=== PATIENT | male | born 1960 | race Caucasian/White ===

== ENCOUNTER 2017-07-17 01:22 | Inpatient (IN) | payer BC ==
[~2017-07-17] VITALS: Ht 175.3 cm; Wt 93.5 kg
[2017-07-17] VITALS (21 sets, daily range): BP systolic 104–147; BP diastolic 60–103; PULSE 45–71; TEMP 36.6–36.9; O2SAT 92–97; Ht 175.3 cm; Wt 93.5 kg
[2017-07-17] MEDS ORDERED: NITROGLYCERIN 0.4 MG SL PER TAB CHARGE SL STA (01:42)
[2017-07-17] MEDS ORDERED: ASPIRIN 81 MG CHEW PO STA (01:42)
[2017-07-17 02:06] LABS: BASO % 0.5 %; BASO ABS # 0.05 K/uL (0-0.2); COMPLETE YES; EOS % 4.2 %; HEMATOCRIT 46.2 % (42-52); IG% 0.4 %; LYMPH % 29.7 %; LYMPH ABS # 3.05 K/uL (1.2-3.4); MEAN CELL VOLUME 84.9 fL (80-100); MEAN CORPUSCULAR HGB CONC 34.2 g/dl (32-36); MEAN PLATELET VOLUME 9.3 fL (7.4-10.4); MONO % 9.8 %; NEUT % 55.4 %; PLATELET COUNT 301 K/uL (130-400); RED BLOOD COUNT 5.44 M/uL (4.7-6.1); WHITE BLOOD COUNT 10.27 K/uL (4.8-10.8)
[2017-07-17 02:26] LABS: ALT/SGPT 90 U/L (12-78); AST/SGOT 36 U/L (15-37); BLOOD UREA NITROGEN 25 mg/dl (7-18); BUN/CREATININE RATIO 22.7 (10-20); CALCIUM 9.6 mg/dl (8.5-10.1); CARBON DIOXIDE 30 mmol/L (21-32); CHLORIDE 104 mmol/L (98-107); GLUCOSE 149 mg/dl (70-99); POTASSIUM 3.5 mmol/L (3.5-5.1); SODIUM 139 mmol/L (136-145)
[2017-07-17 02:27] LABS: ALKALINE PHOSPHATASE 87 U/L (45-117)
[2017-07-17] MEDS ORDERED: ATROPINE SULFATE 0.1 MG/ML 5ML SYR IV STA (02:30)
[2017-07-17] MEDS ORDERED: SODIUM CHLORIDE 0.9% 1000ML 2,000 ML IV STA (02:30)
[2017-07-17 02:48] LABS: PROTHROMBIN TIME (PATIENT) 10.5 SECONDS (9.0-12.0)
[2017-07-17] MEDS ORDERED: HEPARIN SOD (PORCINE) 1000 UNIT/ML 10 ML VIAL ONE ×2 (02:57→04:01)
[2017-07-17] MEDS ORDERED: NiCARDipine HCL INJ 2.5 MG/ML 10 ML AMP ONE (02:57)
[2017-07-17] MEDS ORDERED: MIDAZOLAM HCL 1 MG/ML 2ML VIAL ONE ×2 (02:57→03:40)
[2017-07-17] MEDS ORDERED: FENTANYL CITRATE INJ 50 MCG/1 ML 2 ML VIAL ONE ×2 (02:57→03:38)
[2017-07-17] MEDS ORDERED: NITROGLYCERIN/D5W 100MCG/ML 20ML SYR ONE (03:00)
[2017-07-17 03:11] LABS: LYME DISEASE AB IGG NEG (NEG); LYME DISEASE AB IGM NEG (NEG)
--- NOTE | 2017-07-17 03:19 | History and Physical ---
History & Physical Date & Time of Service: Jul 17, 2017 at 03:18 Chief Complaint: Chest Pain Primary Care Physician: Jalen Peters M.D. History of Present Illness Source: patient The patient is a 56-year-old male who presents to the emergency department overnight with chest pain. The patient states that has occurred multiple times in the past 3 days. He notes a couple nights ago he is walking with his and noticed a low-grade chest pressure that did not radiate to the back jaw or arms. It really after he finishes walk the pain went away. He is generally active gentleman and works out at the gym 6 times a week. However the last couple days he has been having a low-grade chest pressure during exertion which is relieved when he stops exerting himself. Diagnoses sitting watching TV and the pain came on at rest and states that at that time the pain was the most severe is been. Again he states there was 8 out of 10 chest pressure without any radiating symptoms. As his symptoms did not resolve the patient came to the emergency department for further evaluation. He denies shortness of breath, palpitations, lightheadedness/dizziness, orthopnea or lower extremity edema He denies a previous history of hypertension, diabetes, hypercholesterolemia. He is a nonsmoker. States his father had an MN with CABG at the age of 55. In the ER and EKG was done which did not show any acute EKG changes. However troponin was elevated at 0.220. While in the ED the patient had a bradycardic event, where he was apparently asystolic for a very brief moment, after which she recovered to normal rate. He was started for sure. On dopamine via peripheral IV but this was discontinued as result heart heart alert was called the patient was take to the research lab assistant where he had a complete occlusion of the LAD with stenting Patient was transferred to the intensive care unit on Integrilin infusion. At this time the patient denies any symptoms of chest pain. Family History Noncontributory Social History Smoking Status: Never Smoker Smokeless Tobacco Use: No Alcohol Use: none Drug Use: none Marital Status: Housing status: lives with family Occupational Status: employed Immunizations History of Influenza Vaccine: Unknown History of Tetanus Vaccine?: Unknown History of Pneumococcal: Unknown History of Hepatitis B Vaccine: Unknown Multi-Drug Resistant Organisms History of MDRO: No Allergies Coded Allergies: No Known Allergies (Verified , 07/17/17) Home Medications No Active Prescriptions or Reported Meds Review of Systems A 10 point review of systems was negative unless stated above. Physical Exam Vital Signs Date Time Temp Pulse Resp B/P (MAP) Pulse Ox O2 Delivery O2 Flow Rate FiO2 07/17/17 03:00 66 15 125/86 98 Room Air 07/17/17 02:57 67 07/17/17 02:55 65 16 118/73 97 07/17/17 02:50 56 14 138/82 95 07/17/17 02:45 60 19 128/75 94 07/17/17 02:40 62 15 116/71 94 07/17/17 02:39 60 20 96 07/17/17 02:38 63 18 92 07/17/17 02:37 61 18 92 07/17/17 02:36 65 20 94 07/17/17 02:35 60 13 101/73 07/17/17 02:34 59 18 100/69 07/17/17 02:33 58 24 07/17/17 02:32 45 19 96 07/17/17 02:31 49 20 96 07/17/17 02:30 47 07/17/17 02:30 42 14 87/57 96 07/17/17 02:29 42 19 95 07/17/17 02:28 38 17 66/40 96 07/17/17 02:27 37 17 98 07/17/17 02:27 37 07/17/17 02:26 32 07/17/17 02:26 39 29 71/40 96 07/17/17 02:25 36 07/17/17 02:25 42 12 89 07/17/17 02:24 61 16 93 07/17/17 02:23 63 21 93 07/17/17 02:22 62 19 94 07/17/17 02:21 62 17 93 07/17/17 02:20 54 15 114/86 94 07/17/17 02:20 65 18 114/86 93 Room Air 07/17/17 02:01 97 Room Air 07/17/17 01:58 Room Air 07/17/17 01:43 69 07/17/17 01:35 37.1 64 18 174/113 97 Room Air 07/17/17 01:32 97 Room Air General Appearance: WD/WN, no apparent distress Head: normocephalic, atraumatic Eyes: normal inspection, EOMI ENT: hearing grossly normal, pharynx normal Neck: supple, no adenopathy, no JVD Respiratory/Chest: lungs clear, no respiratory distress Cardiovascular: regular rate, rhythm, no gallop, no murmur Abdomen/GI: normal bowel sounds, non tender, soft Back: no CVA tenderness, no muscle spasm Extremities/Musculoskelatal: no calf tenderness, no pedal edema, + pertinent finding (other access site in right wrist) Neurologic/Psych: alert, normal mood/affect, oriented x 3 Skin: normal color, warm/dry, no rash Lymphatic: no adenopathy Diagnostics Laboratory Results Results Past 24 Hours Test 07/17/17 01:35 07/17/17 01:59 Range/Units White Blood Count 10.27 4.8-10.8 K/uL Red Blood Count 5.44 4.7-6.1 M/uL Hemoglobin 15.8 14.0-18.0 g/dL Hematocrit 46.2 42-52 % Mean Corpuscular Volume 84.9 80-100 fL Mean Corpuscular Hemoglobin 29.0 25-34 pg Mean Corpuscular Hemoglobin Concent 34.2 32-36 g/dl Platelet Count 301 130-400 K/uL Mean Platelet Volume 9.3 7.4-10.4 fL Neutrophils (%) (Auto) 55.4 % Lymphocytes (%) (Auto) 29.7 % Monocytes (%) (Auto) 9.8 % Eosinophils (%) (Auto) 4.2 % Basophils (%) (Auto) 0.5 % Neutrophils # (Auto) 5.69 1.4-6.5 K/uL Lymphocytes # (Auto) 3.05 1.2-3.4 K/uL Monocytes # (Auto) 1.01 0.11-0.59 K/uL Eosinophils # (Auto) 0.43 0-0.5 K/uL Basophils # (Auto) 0.05 0-0.2 K/uL RDW Standard Deviation 40.2 36.4-46.3 fL RDW Coefficient of Variation 13.1 11.5-14.5 % Immature Granulocyte % (Auto) 0.4 % Immature Granulocyte # (Auto) 0.04 0.00-0.02 K/uL Prothrombin Time 10.5 9.0-12.0 SECONDS Prothromb Time International Ratio 1.0 0.9-1.1 Activated Partial Thromboplast Time 27.2 21.0-31.0 SECONDS Partial Thromboplastin Ratio 1.0 Sodium Level 139 136-145 mmol/L Potassium Level 3.5 3.5-5.1 mmol/L Chloride Level 104 98-107 mmol/L Carbon Dioxide Level 30 21-32 mmol/L Anion Gap 5.0 3-11 mmol/L Blood Urea Nitrogen 25 7-18 mg/dl Creatinine 1.10 0.60-1.40 mg/dl Est Creatinine Clear Calc Drug Dose 86.5 ml/min Estimated GFR () 87.7 Estimated GFR (Non- 75.7 BUN/Creatinine Ratio 22.7 10-20 Random Glucose 149 70-99 mg/dl Calcium Level 9.6 8.5-10.1 mg/dl Total Bilirubin 0.4 0.2-1 mg/dl Direct Bilirubin < 0.1 0-0.2 mg/dl Aspartate Amino Transf (AST/SGOT) 36 15-37 U/L Alanine Aminotransferase (ALT/SGPT) 90 12-78 U/L Alkaline Phosphatase 87 45-117 U/L Total Protein 7.8 6.4-8.2 gm/dl Albumin 4.0 3.4-5.0 gm/dl Lipase 137 73-393 U/L Lyme Disease IgG Antibody NEG NEG Lyme Disease IgM Antibody NEG NEG Bedside Troponin I 0.220 0-0.045 ng/ml EKG CHEST ONE VIEW PORTABLE CLINICAL HISTORY: 56 years-old Male presenting with CHEST PAIN. TECHNIQUE: Portable upright AP view of the chest was obtained. COMPARISON: None. FINDINGS: Cardiomediastinal silhouette normal. Mildly low lung volumes with hypoventilatory changes. Lungs and pleural spaces clear. Degenerative changes of the spine. Upper abdomen normal. IMPRESSION: 1. Mildly low lung volumes with hypoventilatory changes. No focal infiltrate. Impression Assessment and Plan 56-year-old gentleman, admitted for chest pain found to be an STEMI with complete LAD occlusion. He is status post stenting. He was transferred directly from the cardiac catheterization lab to the intensive care unit for further management. He is doing well at this time. Our plan for him is as follows NSTEMI - Elevated troponin on admission of 0.22 - Status post LAD stenting - Patient is currently on Integrilin infusion - Secondary: ASA 81 daily Ticagrelor 90BID Lisinopril Metoprolol Recommend patient cannot intensity statin - Check fasting cholesterol HbA1c with morning labs - EKG with chest pain DVT prophylaxis - Patient is currently on an Integrilin drip - He can be changed over to either heparin or low molecular weight heparin once Integrilin was discontinued - SCD - Santy Code Status - Level I Disposition - ICU - Patient would benefit from cardiac rehabilitation Attending Addendum: I have physically seen and examined this patient, have supervised the medical residents activities, and agree with the H&P as noted above with the following exceptions as noted. The patient initially presented to the emergency department with chest pain. Seen post cardiac catheterization with LAD stenting, the patient reports no further chest pain. The patient denies chest pain, palpitations, shortness of breath, cough, lower extremity swelling, sore throat, fevers, chills, sweats, fatigue, nausea, vomiting, diarrhea or constipation, abdominal pain, pelvic pain, blood in urine or stool, dysuria, urinary frequency or urgency, lightheadedness, dizziness, headache, memory loss, rash, imbalance, focal or generalized weakness, numbness or tingling in arms or legs, generalized arthralgias or myalgias, back or neck pain, night sweats. The review of systems is otherwise negative other than for that already noted above, and at least 10 systems have been reviewed. The patient is awake, well-developed and adequately nourished, alert and oriented 3, normocephalic and atraumatic, lying in bed and in no acute distress. HEENT--PERRL, EOMI, mucous membranes and oropharynx dry. Neck--supple, no JVD or bruits, thyroid normal, trachea midline, no adenopathy. Heart--normal S1 and S2, no extra beats, no murmurs, rubs or gallops. Lungs--clear bilaterally with good air movement, no respiratory distress, no accessory muscle use. Abdomen--normal bowel sounds and soft, nontender and nondistended, no hernias or masses, no organomegaly. Extremities--no cyanosis, clubbing or edema. There are good distal pulses b/l. Dermatologic--normal skin turgor, normal color, warm and dry, no abnormal lymph nodes, no rash. Neurologic--cranial nerves II through XII grossly intact, motor and sensory examination normal. Rheumatologic--normal range of motion, nontender, muscles and joints. Psychiatric--normal affect. Assessment and Plan: 1.NSTEMI/status post cardiac catheterization with complete LAD occlusion corrected by stent placement, and 80% RCA occlusion to be addressed the following day. The patient is admitted to the ICU on Integrilin infusion, aspirin 81 mg daily , Ticagrelor 90 mg by mouth twice a day, lisinopril 2.5 mg by mouth daily, metoprolol tartrate 12.5 mg by mouth twice a day, and Lipitor 80 mg by mouth daily. Interventional cardiology Dr. Fairbanks is consulted. Paper Sales Representative Dr. Babin is consulted. Level of Care Critical Care Advanced Directives Existing Advance Directive: No Existing Living Will: No Existing Power of Nurse Plastics: No Resuscitation Status FULL RESUSCITATION VTE Prophylaxis VTE Risk Assessment Done? Y/N: Yes Risk Level: Moderate Given or contraindicated: Other Anticoagulation (antiplatelet, Integrilin infusion) Social Service Consult None Apply
--- NOTE | 2017-07-17 03:40 | EMERGENCY ROOM VISIT NOTE ---
History First contact with patient: 01:25 Chief Complaint: CHEST PAIN Stated Complaint: CHEST PAIN Nursing Triage Summary: Pt getting over cold/chest cold. Has had on/off chest pain past couple days. Pt was unable to exercise yesterday. Pt had gone to sleep and woke up around midnight with severe chest pains. History of Present Illness The patient is a 56 year old male who presents to the Emergency Room with complaints of exertional chest pain for the past 3 days. Patient states when he was walking he develop chest pain on Saturday night that resolved when he rested. Patient states yesterday he was trying to the elliptical cut chest pain and was unable to continue. Patient states tonight when he is walking the chest pain returned. It has not gone away. Pain is currently 8 out of 10. He complains of diaphoresis and nausea with the pain. Activity makes it worse and nothing makes it better. Patient denies dyspnea, recent travel, leg pain or swelling, abdominal pain, back pain, radiating pain. He had an echo 2001 which showed some type of infection per patient but is unsure exactly what. He does not really follow with the family care doctor. No recent stress test or echocardiogram. His father had heart disease in his 50s. Patient denies tobacco use, diabetes, blood pressure cholesterol. Once again patient has not seen a doctor in over 10 years. Review of Systems See HPI for pertinent positives & negatives. A total of 10 systems reviewed and were otherwise negative. Past Medical/Surgical History Orthopedic surgeries, hernia surgery Social History Smoking Status: Never Smoker Drug Use: none Marital Status: Housing Status: lives with family Occupation Status: employed Current/Historical Medications No Active Prescriptions or Reported Meds Physical Exam Vital Signs Date Time Temp Pulse Resp B/P (MAP) Pulse Ox O2 Delivery O2 Flow Rate FiO2 07/17/17 03:23 37.1 66 15 125/86 98 07/17/17 03:00 66 15 125/86 98 Room Air 07/17/17 02:57 67 07/17/17 02:55 65 16 118/73 97 07/17/17 02:50 56 14 138/82 95 07/17/17 02:45 60 19 128/75 94 07/17/17 02:40 62 15 116/71 94 07/17/17 02:39 60 20 96 07/17/17 02:38 63 18 92 07/17/17 02:37 61 18 92 07/17/17 02:36 65 20 94 07/17/17 02:35 60 13 101/73 07/17/17 02:34 59 18 100/69 07/17/17 02:33 58 24 07/17/17 02:32 45 19 96 07/17/17 02:31 49 20 96 07/17/17 02:30 47 07/17/17 02:30 42 14 87/57 96 07/17/17 02:29 42 19 95 07/17/17 02:28 38 17 66/40 96 07/17/17 02:27 37 17 98 07/17/17 02:27 37 07/17/17 02:26 32 07/17/17 02:26 39 29 71/40 96 07/17/17 02:25 36 07/17/17 02:25 42 12 89 07/17/17 02:24 61 16 93 07/17/17 02:23 63 21 93 07/17/17 02:22 62 19 94 07/17/17 02:21 62 17 93 07/17/17 02:20 54 15 114/86 94 07/17/17 02:20 65 18 114/86 93 Room Air 07/17/17 02:01 97 Room Air 07/17/17 01:58 Room Air 07/17/17 01:43 69 07/17/17 01:35 37.1 64 18 174/113 97 Room Air 07/17/17 01:32 97 Room Air Pain Rating (0-10): 7.0 Physical Exam VITALS: Vitals are noted on the nurse's note and reviewed by myself. Vital signs hypertensive GENERAL: White male, in no acute distress, nondiaphoretic, well-developed well- nourished. SKIN: The skin was without rashes, erythema, edema, or bruising. There is no tenting of the skin. Capillary reflex less than 2 seconds. HEAD: Normocephalic atraumatic. EARS: External auditory canals clear, tympanic membranes pearly bernabe without erythema or effusion bilaterally. EYES: Pupils equal round and reactive to light and accommodation. Conjunctivae without injection, sclerae without icterus. Extraocular movements intact. NOSE: Patent, turbinates without inflammation or discharge. MOUTH: Mucous membranes moist. Pharynx without erythema or exudate. Uvula midline. Airway patent. Tongue does not deviate. NECK: Supple without nuchal rigidity. No lymphadenopathy. No thyromegaly. Cervical spine is nontender. No JVD. HEART: Regular rate and rhythm without murmurs gallops or rubs. Chest nontender to palpation LUNGS: Clear to auscultation bilaterally without wheezes, rales or rhonchi. No dullness to percussion. No retractions or accessory muscle use. ABDOMEN: Positive bowel sounds x 4. Normal tympanic percussion. Soft, nontender, without masses or organomegaly. Ledesma sign negative. No guarding or rebound tenderness. MUSCULOSKELETAL: No muscle atrophy, erythema, or edema noted. NEURO: Patient was alert and oriented to person place and time. Normal sensation to light and sharp touch. No focal neurological deficits. Medical Decision & Procedures Laboratory Results 07/17/17 01:35 Red Blood Count 5.44, Mean Corpuscular Volume 84.9, Mean Corpuscular Hemoglobin 29.0, Mean Corpuscular Hemoglobin Concent 34.2, Mean Platelet Volume 9.3, Neutrophils (%) (Auto) 55.4, Lymphocytes (%) (Auto) 29.7, Monocytes (%) (Auto) 9.8, Eosinophils (%) (Auto) 4.2, Basophils (%) (Auto) 0.5, Neutrophils # (Auto) 5.69, Lymphocytes # (Auto) 3.05, Monocytes # (Auto) 1.01, Eosinophils # (Auto) 0.43, Basophils # (Auto) 0.05 07/17/17 01:35 Test 07/17/17 01:35 07/17/17 01:59 White Blood Count 10.27 K/uL (4.8-10.8) Red Blood Count 5.44 M/uL (4.7-6.1) Hemoglobin 15.8 g/dL (14.0-18.0) Hematocrit 46.2 % (42-52) Mean Corpuscular Volume 84.9 fL (80-100) Mean Corpuscular Hemoglobin 29.0 pg (25-34) Mean Corpuscular Hemoglobin Concent 34.2 g/dl (32-36) Platelet Count 301 K/uL (130-400) Mean Platelet Volume 9.3 fL (7.4-10.4) Neutrophils (%) (Auto) 55.4 % Lymphocytes (%) (Auto) 29.7 % Monocytes (%) (Auto) 9.8 % Eosinophils (%) (Auto) 4.2 % Basophils (%) (Auto) 0.5 % Neutrophils # (Auto) 5.69 K/uL (1.4-6.5) Lymphocytes # (Auto) 3.05 K/uL (1.2-3.4) Monocytes # (Auto) 1.01 K/uL (0.11-0.59) Eosinophils # (Auto) 0.43 K/uL (0-0.5) Basophils # (Auto) 0.05 K/uL (0-0.2) RDW Standard Deviation 40.2 fL (36.4-46.3) RDW Coefficient of Variation 13.1 % (11.5-14.5) Immature Granulocyte % (Auto) 0.4 % Immature Granulocyte # (Auto) 0.04 K/uL (0.00-0.02) Prothrombin Time 10.5 SECONDS (9.0-12.0) Prothromb Time International Ratio 1.0 (0.9-1.1) Activated Partial Thromboplast Time 27.2 SECONDS (21.0-31.0) Partial Thromboplastin Ratio 1.0 Anion Gap 5.0 mmol/L (3-11) Est Creatinine Clear Calc Drug Dose 86.5 ml/min Estimated GFR () 87.7 Estimated GFR (Non- 75.7 BUN/Creatinine Ratio 22.7 (10-20) Calcium Level 9.6 mg/dl (8.5-10.1) Total Bilirubin 0.4 mg/dl (0.2-1) Direct Bilirubin < 0.1 mg/dl (0-0.2) Aspartate Amino Transf (AST/SGOT) 36 U/L (15-37) Alanine Aminotransferase (ALT/SGPT) 90 U/L (12-78) Alkaline Phosphatase 87 U/L (45-117) Total Protein 7.8 gm/dl (6.4-8.2) Albumin 4.0 gm/dl (3.4-5.0) Lipase 137 U/L (73-393) Lyme Disease IgG Antibody NEG (NEG) Lyme Disease IgM Antibody NEG (NEG) Bedside Troponin I 0.220 ng/ml (0-0.045) Medications Administered Medications (Trade) Dose Ordered Sig/Florin Route Start Time Stop Time Status Last Admin Dose Admin Aspirin (Aspirin Chew) 324 mg NOW STAT PO 07/17/17 01:42 07/17/17 01:43 DC 07/17/17 01:51 324 MG Nitroglycerin (Nitrostat Tab) 0.4 mg NOW STAT SL 07/17/17 01:42 07/17/17 01:43 DC 07/17/17 01:51 0.4 MG Atropine Sulfate (Atropine Sulfate 0.1MG/Ml Inj) 0.5 mg NOW STAT IV 07/17/17 02:30 07/17/17 02:32 DC 07/17/17 02:30 0.5 MG Sodium Chloride 2,000 ml @ 999 mls/hr Q2H1M STAT IV 07/17/17 02:30 07/17/17 04:30 07/17/17 02:30 999 MLS/HR ED Course Prior records/ancillary studies reviewed. Triage Nursing notes reviewed. Additional history obtained from family The patient's history was concerning for chest pain. Differential diagnosis: Etiologies such as cardiac ischemia, aortic dissection, pulmonary embolism, pneumonia, pneumothorax, musculoskeletal, infections, pericarditis, myocarditis , esophageal rupture, gastrointestinal, as well as others were entertained. Physical examination: As above. ER treatment provided: Aspirin, nitroglycerin, IV fluids, dopamine, atropine On reassessment the patient felt better. Diagnostic interpretation by me: The electrocardiogram was negative for pathologic change. Normal sinus, normal intervals, no acute ST-T wave changes. Impression normal sinus rhythm interpreted by myself Repeat EKG shows junctional rhythm at [address]-T wave changes, and # 3 EKG is normal sinus with no acute ST-T wave changes with occasional PAC interpreted by myself with rate 69 The labs revealed elevated troponin. Stable H&H Imaging studies: Chest x-ray no acute pneumothorax, free air or consolidation per my interpretation Consultation: A consultation was placed with Dr. Fairbanks and will come in and evaluate the patient. The case was discussed and diagnostics were reviewed. The patient was evaluated in the ER for further treatment. Medicine was consulted and Dr. Rooney will evaluate the patient for admission Exam and history seem consistent with acute coronary syndrome. I was explaining to the patient that he had an elevated troponin and his symptoms were concerning for acute coronary syndrome but he then bradied down to less than 10 and his blood pressure plummeted to 60/30. Pacer pads are placed. He was given 2 L of fluids wide open and cardiology was consulted and Dr. Magdi hawthorne come in for possible cath. My attending was made aware. Patient was then started on dopamine and atropine. Within a few minutes patient felt much better and was no longer diaphoretic and pale. Patient was reassessed multiple times. He is agreeable treatment plan of admission. Cardiology will take him to the Clinical Instructor. By the evaluation outlined above emergent etiologies such as aortic dissection, pulmonary embolism, pneumonia, pneumothorax, gastrointestinal, as well as others were deemed relatively unlikely. The pt informed about the findings as listed above. All questions were answered and pleased with the treatment. Case reviewed by attending Medical Decision As above Medication Reconcilliation Current Medication List: was personally reviewed by me Blood Pressure Screening Patient's blood pressure: Elevated blood pressure Blood pressure disposition: Referred to PCP Impression Primary Impression: Acute coronary syndrome Critical Care I have personally spent greater than 30 minutes of critical care time in the direct management of this patient. This includes bedside care, interpretation of diagnostic studies, and testing, discussion with consultants, patient, and family members, and other required patient management activities. This 30 minutes is in excess of all separately billable procedures. Departure Information Dispostion Being Evaluated By Hospitalist Condition FAIR Prescriptions No Active Prescriptions or Reported Meds Referrals Jalen Peters M.D. (PCP) Forms Call Back Authorization, HOME CARE DOCUMENTATION FORM, IMPORTANT VISIT INFORMATION Patient Instructions My [facility]
[2017-07-17] MEDS ORDERED: EPTIFIBATIDE 0.75 MG/ML 75MG VIAL IV ONE (03:56)
[2017-07-17] MEDS ORDERED: TICAGRELOR 90 MG TAB PO ONE (04:32)
[2017-07-17] MEDS ORDERED: EPTIFIBATIDE 2 MG/ML 10 ML VIAL IV ONE (04:45)
[2017-07-17] MEDS ORDERED: MoRPHine SULFATE 2 MG/ML CARP IV PRN (05:15)
[2017-07-17] MEDS ORDERED: NITROGLYCERIN 0.4 MG SL PER TAB CHARGE SL PRN ×2 (05:15)
[2017-07-17] MEDS ORDERED: ACETAMINOPHEN 325 MG TAB PO PRN (05:15)
[2017-07-17] MEDS ORDERED: ALUMINUM/MAGNESIUM/SIMETH (MAALOX MAX) 30 ML UDC PO PRN (05:15)
[2017-07-17] MEDS ORDERED: LORAZEPAM INJ 0.5 MG in SYRINGE 0.75 ML IV PRN (05:15)
[2017-07-17] MEDS ORDERED: ATROPINE SULFATE 0.1 MG/ML 5ML SYR IV PRN (05:15)
[2017-07-17] MEDS ORDERED: LORAZEPAM 1 MG TAB PO PRN (05:15)
[2017-07-17] MEDS ORDERED: ONDANSETRON INJ 2 MG/ML 2 ML VIAL IV PRN (05:15)
[2017-07-17] MEDS ORDERED: LORAZEPAM 2 MG/ML 1 ML VIAL IV PRN ×3 (05:15→06:15)
[2017-07-17] MEDS ORDERED: EPTIFIBATIDE BOLUS / DRIP IV ONE (05:15)
[2017-07-17] MEDS ORDERED: ZOLPIDEM TARTRATE 5 MG TAB PO PRN (05:15)
[2017-07-17] MEDS ORDERED: MAGNESIUM HYDROXIDE SUSP 30 ML UDC PO PRN (05:15)
--- NOTE | 2017-07-17 05:31 | Procedure Note ---
Pre-Mod Sedation Assessment General Date of Moderate Sedation: Jul 17, 2017. Vital Signs: Vital Signs Past 12 Hours Date Time Temp Pulse Resp B/P (MAP) Pulse Ox O2 Delivery O2 Flow Rate FiO2 07/17/17 05:02 62 16 129/80 (96) 95 Room Air 07/17/17 04:54 63 16 132/83 (99) 96 Room Air 07/17/17 04:39 60 16 123/79 (94) 95 Mask 6 07/17/17 03:23 37.1 66 15 125/86 98 07/17/17 03:00 66 15 125/86 98 Room Air 07/17/17 02:57 67 07/17/17 02:55 65 16 118/73 97 07/17/17 02:50 56 14 138/82 95 07/17/17 02:45 60 19 128/75 94 07/17/17 02:40 62 15 116/71 94 07/17/17 02:39 60 20 96 07/17/17 02:38 63 18 92 07/17/17 02:37 61 18 92 07/17/17 02:36 65 20 94 07/17/17 02:35 60 13 101/73 07/17/17 02:34 59 18 100/69 07/17/17 02:33 58 24 07/17/17 02:32 45 19 96 07/17/17 02:31 49 20 96 07/17/17 02:30 47 07/17/17 02:30 42 14 87/57 96 07/17/17 02:29 42 19 95 07/17/17 02:28 38 17 66/40 96 07/17/17 02:27 37 17 98 07/17/17 02:27 37 07/17/17 02:26 32 07/17/17 02:26 39 29 71/40 96 07/17/17 02:25 36 07/17/17 02:25 42 12 89 07/17/17 02:24 61 16 93 07/17/17 02:23 63 21 93 07/17/17 02:22 62 19 94 07/17/17 02:21 62 17 93 07/17/17 02:20 54 15 114/86 94 07/17/17 02:20 65 18 114/86 93 Room Air 07/17/17 02:01 97 Room Air 07/17/17 01:58 Room Air 07/17/17 01:43 69 07/17/17 01:35 37.1 64 18 174/113 97 Room Air 07/17/17 01:32 97 Room Air Review Cardiovascular: regular rate, rhythm, no edema, no JVD, no murmur, normal peripheral pulses Abdomen: non tender, soft, no organomegaly Lungs: lungs clear Pre-Sedation Airway Assessment Oral Cavity: WNL Able to Visualize Vocal Cords: No Short Thick Neck: No Hx of Sleep Apnea: No Smoking Status: Never Smoker Mallampati Classification: Class III Procedure Planning Contraindications-for Mod Sed: None Yes Notes The planned sedation has been discussed with the patient and consent obtained. I have identified the patient, determined the appropriateness of sedation and have assessed the patient immediately prior to the procedure. All medicine(s) and interventions are by my order.
--- NOTE | 2017-07-17 05:31 | Procedure Note ---
Post-Mod Sedation Assessment General Date of Moderate Sedation Jul 17, 2017. Vital Signs: Vital Signs Past 12 Hours Date Time Temp Pulse Resp B/P (MAP) Pulse Ox O2 Delivery O2 Flow Rate FiO2 07/17/17 05:02 62 16 129/80 (96) 95 Room Air 07/17/17 04:54 63 16 132/83 (99) 96 Room Air 07/17/17 04:39 60 16 123/79 (94) 95 Mask 6 07/17/17 03:23 37.1 66 15 125/86 98 07/17/17 03:00 66 15 125/86 98 Room Air 07/17/17 02:57 67 07/17/17 02:55 65 16 118/73 97 07/17/17 02:50 56 14 138/82 95 07/17/17 02:45 60 19 128/75 94 07/17/17 02:40 62 15 116/71 94 07/17/17 02:39 60 20 96 07/17/17 02:38 63 18 92 07/17/17 02:37 61 18 92 07/17/17 02:36 65 20 94 07/17/17 02:35 60 13 101/73 07/17/17 02:34 59 18 100/69 07/17/17 02:33 58 24 07/17/17 02:32 45 19 96 07/17/17 02:31 49 20 96 07/17/17 02:30 47 07/17/17 02:30 42 14 87/57 96 07/17/17 02:29 42 19 95 07/17/17 02:28 38 17 66/40 96 07/17/17 02:27 37 17 98 07/17/17 02:27 37 07/17/17 02:26 32 07/17/17 02:26 39 29 71/40 96 07/17/17 02:25 36 07/17/17 02:25 42 12 89 07/17/17 02:24 61 16 93 07/17/17 02:23 63 21 93 07/17/17 02:22 62 19 94 07/17/17 02:21 62 17 93 07/17/17 02:20 54 15 114/86 94 07/17/17 02:20 65 18 114/86 93 Room Air 07/17/17 02:01 97 Room Air 07/17/17 01:58 Room Air 07/17/17 01:43 69 07/17/17 01:35 37.1 64 18 174/113 97 Room Air 07/17/17 01:32 97 Room Air Review - Discharge Criteria Vital Signs Stable: Yes Alert/Oriented/Conversant: Yes Returned to Baseline Mental St: Yes Nausea Absent/Minimal: Yes Pain/Discomfort/Absent/Minimal: Yes Normal/Baseline Respirations: Yes Active Bleeding?: No Pt Received D/C Instructions: N/A Prescriptions Given: None Specific Proced. D/C Criteria Distal Pulses Present (Cardiac: Yes Groin site assessed-Card Cath: N/A Voided Prior To Discharge: N/A Discharged Patients Adult Escort/Transportation: N/A
--- NOTE | 2017-07-17 06:15 | Cardiac Catheterization ---
Procedure Note Procedure Date Jul 17, 2017. Pre-Procedure Diagnosis Non STEMI, Acute Coronary Syndrome, Angina AUC Score 8 Post-Procedure Diagnosis Severe CAD, Successful PCI, Decreased LV Systolic Function, Elevated Intracardiac Pressures Procedure(s) Performed Coronary Angiography, PTCA, Drug Eluting Stent Shake Feeder Dr. Fairbanks Windows Systems Architect(s) Mile Gomez,MANAGER CONSUMER Estimated Blood Loss 25 Medication(s) Fentanyl, Heparin, Integrilin, Nicardipine, Versed, Lidocaine 1% Ticagrelor 180 mg PO post PCI Summary of Findings Clinical indications: Non ST elevation myocardial infarction, ongoing chest pain. Catheterization site: 6 [facility]. Diagnostic catheters: 5 Swazi Medtronic Trap 3.5, JL 3.5, and pigtail catheters. Interventional equipment: 6 Swazi EBU 3.75 guide catheter, TBi Connecttronic [place] guidewire, Bull Trek 2.5 x 12 millimeter balloon dilatation catheter, GRAM [employer] Xience 3 x 33 millimeter drug-eluting stent, MedAccessData [place] Sprinter 3.25 x 15 millimeter balloon dilatation catheter. Interventional protocol: Intravenous Integrilin and heparin were administered. A therapeutic activated clotting time was documented. PTCA performed to early mid LAD total occlusion with the 2.5 x 12 millimeter balloon. Five balloon inflations performed to a maximum pressure 14 atmospheres and maximum duration of 20 seconds. Stent deployed in mid LAD at a pressure of 10 atmospheres for duration of 45 seconds. The stent delivery balloon was then used to perform a 2nd inflation to a pressure of 14 atmospheres for duration of 20 seconds. Noncompliant balloon inflations were then performed to the proximal and mid segments of the stent . Follow-up angiography was then performed from orthogonal projections with the guidewire in place and then guidewire withdrawn. Left heart catheterization and left ventricular angiography were then performed. Left ventricular angiography performed with a hand injection of contrast dye in a 26 degree right anterior oblique projection. Ticagrelor 180 milligrams given p.o. post PCI. The patient was hemodynamically and electrically stable throughout the procedure. Following reperfusion of the LAD his chest pain almost completely resolved. Hemostasis: Terumo TR band. Complications: None. Findings: Fluoroscopy revealed mild coronary calcifications. The coronary circulation was right dominant. Large caliber right coronary artery. 80 percent early mid RCA stenosis. 30 percent mid RCA stenosis. Thereafter diffuse mild atherosclerotic disease in the remainder mid distal RCA with 10 30 percent luminal diameter narrowing. Distal RCA gave rise to a small caliber posterior descending artery without obstructive disease. Small to medium caliber posterolateral artery with 30 percent ostial stenosis. Right to left collateral flow to LAD. 100 percent early mid LAD occlusion. The very proximal LAD gave rise to a long small caliber 1st diagonal artery. It then gave rise to a long small to medium caliber 2nd diagonal artery. The 2nd diagonal had a 20 percent proximal stenosis. CHAPINCITO 0 flow in LAD following site of occlusion. Following PTCA CHAPINCITO 3 flow in LAD. Successful intervention to LAD occlusion with deployment of drug-eluting stent. Residual stenosis 0-10 percent. No evidence of dissection, thrombus, perforation, or distal embolic event. CHAPINCITO 3 flow. No significant disease in left circumflex coronary artery. The very proximal circumflex gave rise to a very small caliber and long diagonal type branch. The proximal left circumflex had 20 percent stenosis. The mid circumflex had diffuse mild atherosclerotic disease with 0-10 percent luminal diameter narrowing. The mid circumflex gave rise to a long marginal artery which had a 20 percent mid segment stenosis. Distal left circumflex gave rise to a very small caliber 2nd marginal artery. Left ventricular angiography with LV ejection fraction approximately 55 percent. Anterior and apical hypokinesis. Plan: Intravenous Integrilin for 12 hours. Loading dose of ticagrelor 180 milligrams given post PCI. Continue thereafter at a dose of 90 milligrams b.i.d.. Aspirin 81 milligrams daily. Atorvastatin 80 milligrams daily. Low- dose lisinopril and metoprolol. Titrate upwards as tolerated by heart rate and blood pressure. Serial electrocardiograms, cardiac enzymes, and labs. Echocardiogram to further assess LV systolic function. Elective intervention to RCA stenosis during this hospitalization. Hemodynamics Rest Ao: 120/78/99 mm Hg Final Ao: 93/58/76 mm Hg LV: 93/17 mm Hg Recommendations Medical therapy and/or Counseling, PCI without planned CABG Specimens None Radiation Exposure (mGy) 3260 Contrast (mls) 230 ml Visipaque Fluids (cc crystalloids) 260 Drains None Anesthesia Intravenous Versed and fentanyl. Lidocaine 1 percent for local anesthesia. Procedural Complication(s) None Disposition ICU ACC Data Cardiac Status Clinical evaluation leading to the procedure CAD Presntation: Non STEMI Anginal Classification: CCS IV Heart Failure: No Cardiogenic Shock w/in 24Hrs: No Cardiac Arrest w/in 24Hrs: No Imaging studies past 6 months: No Stress studies past 6 months: No Standard Exercise Stress Test: No Stress Echocardiogram: No Stress Testing w/SPECT MPI: No Cardiac CTA: No (He vt) Coronary Anatomy Dominant: Right Left Main (% Stenosis): Normal LAD (% Stenosis): Mid (100) D1 (% Stenosis): Normal D2 (% Stenosis): Proximal (20) Circumflex (% Stenosis): Proximal (20), Mid (0-10) OM1 (% Stenosis): Mid (20) OM2 (% Stenosis): Normal RCA (% Stenosis): Mid (80,30,10-20), Distal (10-30) R PDA (% Stenosis): Normal R PL1 (% Stenosis): Ostial (30) Left Ventricular Angiography EF (%): 55 Wall Motion: Inferior (Normal), Apical (Hypokinetic), Anterior (Hypokinetic) Mitral Regurgitation: None Diagnostic Physician's Name: Fredo Fairbanks M.D. Status: Emergency Closure Device Percutaneous Entry Location: Radial Closure Device: Radial Band Recommendations: Medical therapy and/or Counseling, PCI without planned CABG PCI Indication: PCI for high risk Non-STEMI Lesion Segment Name: Mid LAD Culprit Artery: Yes Stenosis Prior to Rx (%): 100 Chronic Total Occlusion: No IVUS: No FFR: No Pre-Procedure CHAPINCITO Flow: 1 Previously Treated Lesion: No Lesion Complexity: High/C Lesion Length (mm): 29 Thrombus Present: Yes Bifurcation Lesion: No Guidewire Across Lesion: Yes Guidewire: Stenosis Post-Procedure (%): 0 Post-Procedure CHAPINCITO Flow: 3 Device(s) Deployed: Yes Type of Device(s): Bull Xience 3 X 33 millimeter drug-eluting stent. Proximal and mid segments of stent post dilated with 3.25 x 15 millimeter noncompliant balloon. Intraprocedure Events Significant Dissection: No Perforation: No
[2017-07-17 06:16] LABS: BASO % 0.2 %; BASO ABS # 0.03 K/uL (0-0.2); EOS % 0.4 %; HEMATOCRIT 43.4 % (42-52); IG% 0.3 %; LYMPH % 9.4 %; MEAN CELL VOLUME 84.4 fL (80-100); MEAN CORPUSCULAR HEMOGLOBIN 28.6 pg (25-34); MEAN PLATELET VOLUME 9.4 fL (7.4-10.4); MONO % 4.7 %; PLATELET COUNT 264 K/uL (130-400); RED BLOOD COUNT 5.14 M/uL (4.7-6.1); WHITE BLOOD COUNT 18.02 K/uL (4.8-10.8)
[2017-07-17] MEDS ORDERED: LORAZEPAM INJ 1 MG in SYRINGE 0.5 ML IV PRN (06:30)
[2017-07-17 06:32] LABS: COMPLETE YES; MEAN CORPUSCULAR HGB CONC 33.9 g/dl (32-36)
--- NOTE | 2017-07-17 06:38 | EMERGENCY ROOM VISIT NOTE ---
ED Visit Note First contact with patient: 01:25 I have personally evaluated and examined this patient. I agree with assessment and plan of Sandra Dyson PA-C. 56 yr old very healthy athletic male who works out 1 hour a day without issue. Over last 2 days CP with exertion. Severely worse this evening and hypertensive on arrival. Initial EKG reviewed by me unremarkable. CXR unremarkable. Trop mildly elevated. Called emergently to room for near-syncope. In complete heart block on EKG/Monitor and severely hypotensive. Heart alert called given recent chest pain, elevated trop, and complete heart block. Given Atropine and started on dopamine gtt. Gradual improvement in patient symptoms, HR and BP. Symptoms not consistent with Dissection nor PE. There is concern possible pericarditis as previous reported history of this but symptoms too concerning for ACS at this time. Evaluated by Dr Fairbanks at bedside who took patient to test lab technician for intervention. Stable and looking much better at time of transfer to test lab technician.
[2017-07-17 06:42] LABS: BLOOD UREA NITROGEN 21 mg/dl (7-18); BUN/CREATININE RATIO 26.5 (10-20); CALCIUM 8.2 mg/dl (8.5-10.1); CARBON DIOXIDE 25 mmol/L (21-32); CHLORIDE 108 mmol/L (98-107); CHOLESTEROL 231 mg/dl (0-200); GLUCOSE 131 mg/dl (70-99); MAGNESIUM 1.8 mg/dl (1.8-2.4); SODIUM 138 mmol/L (136-145)
[2017-07-17] MEDS ORDERED: MAGNESIUM SULFATE 1GM / D5W 1 GM in PREMIXED IN D5W 100 ML IV STA (06:45)
[2017-07-17 06:49] LABS: CHOLESTEROL/HDL RATIO 4.3; CKMB/CK RATIO 11.2 (0-3.0); HDL CHOLESTEROL 54 mg/dl; TRIGLYCERIDES 47 mg/dl (0-150); VERY LOW DENSITY LIPOPROT CALC 9 mg/dl
--- NOTE | 2017-07-17 06:58 | DIAGNOSTIC IMAGING REPORT ---
CHEST ONE VIEW PORTABLE CLINICAL HISTORY: 56 years-old Male presenting with CHEST PAIN. TECHNIQUE: Portable upright AP view of the chest was obtained. COMPARISON: None. FINDINGS: Cardiomediastinal silhouette normal. Mildly low lung volumes with hypoventilatory changes. Lungs and pleural spaces clear. Degenerative changes of the spine. Upper abdomen normal. IMPRESSION: 1. Mildly low lung volumes with hypoventilatory changes. No focal infiltrate. Electronically signed by: Tramaine Rogers M.D. 07/17/2017 6:57 AM Dictated Date/Time: 07/17/2017 6:56 AM
[2017-07-17] MEDS ORDERED: GLUCAGON FOR INJ 1 MG VIAL SQ PRN (07:00)
[2017-07-17] MEDS ORDERED: GLUCOSE 10 TABS/TUBE PO PRN (07:00)
[2017-07-17] MEDS ORDERED: DEXTROSE 50% 50 ML SYR IV PRN (07:00)
[2017-07-17] MEDS ORDERED: GLUCOSE 40% GEL 15 GM TUBE PO PRN (07:00)
[2017-07-17 07:04] LABS: ESTIMATED AVERAGE GLUCOSE 128 mg/dl; HA1C FLAG Normal (Normal)
--- NOTE | 2017-07-17 08:35 | CARDIOLOGY CONSULTATION ---
DATE OF CONSULTATION: 07/17/2017 REFERRING PHYSICIAN: Ed Roper MD CONSULTATION BY: Fredo Fairbanks MD HISTORY OF PRESENT ILLNESS: The patient is a 56-year-old white male. On 07/14/2017, he developed recurrent episode of exertionally precipitated bilateral upper chest pressure. He normally is very active. He normally performs aerobic exercise for an hour a day on almost a daily basis. He had not noted any recent decrease in exercise tolerance. He had not had any recent exertionally precipitated anginal-type chest discomfort until on set on 07/14/2017. Since then, he has had recurrent exertionally precipitated chest pain, relieved with rest. On the evening of 07/16/2017, he developed bilateral upper chest discomfort which did not resolve. It was associated with diaphoresis and nausea. No significant dyspnea. Slight radiation of discomfort into his shoulders. No definite improvement in the discomfort with change in body position. He thought the discomfort did slightly increase in intensity with deep inspiration. Because of the persistent pain, he came to the Emergency Department for evaluation. His electrocardiogram revealed no acute ST or T-wave abnormalities. For the discomfort, he was given sublingual nitroglycerin. While he was being examined by the Emergency Department physician neurology physician assistant; he developed hypertension, diaphoresis, and severe bradycardia. It was reported to me that he had a sinus pause. There is also report of possible complete heart block. He was given intravenous fluids, dopamine, and atropine. His rhythm, returned to sinus rhythm and his blood pressure improved. A troponin I returned elevated at 0.220. After the episode of the bradyarrhythmia, a heart alert was called. When I arrived in the Emergency Department to see the patient, he is still complaining of severe chest discomfort. His electrocardiogram continued to reveal no diagnostic changes of an ST elevation myocardial infarction. Because of his persistent chest pain, it was felt best to take the patient to cardiac catheterization laboratory for emergency cardiac catheterization. Based on the electrocardiogram, it was felt that he could have an occlusion in an LAD diagonal, left circumflex marginal. The procedure, risk, benefits, and alternatives of cardiac catheterization and coronary intervention were discussed with him. He agreed to the procedure. The patient has no prior history of coronary artery disease. He was admitted in 2001 with pleuritic chest pain, which was attributed to a viral etiology. Of note, is that during that hospitalization, he also had a vagal reaction in the Emergency Department. An echocardiogram performed on that admission revealed evidence of right ventricular enlargement. Normal left ventricular size and systolic function. The patient followed up with his physician a few weeks after that discharge. Since then, he denies any significant medical followup. He has had no hospitalizations or significant major illnesses since the admission in 2001. He denies history of hypertension, diabetes mellitus, or dyslipidemia. He has never smoked cigarettes. His father did undergo CABG surgery at age 56. Following evaluation of the patient by me in the Emergency Department, he was brought to the cardiac catheterization lab. Procedure performed via a 6-Welsh slender glide sheath right radial artery. Mild coronary calcifications. Right dominant circulation. 80% eccentric early mid RCA stenosis. Right to left collateral flow to the LAD. Left coronary angiography with mild atherosclerotic disease in the left circumflex. Total early mid LAD occlusion. Successful reperfusion of the LAD with balloon angioplasty. A long area of diffuse atherosclerotic disease in the mid LAD. Subsequent deployment of 3 x 33 mm drug-eluting stent. Proximal and mid segments of stent post-dilated with a 3.25 x 15 mm noncompliant balloon. 0-10% residual stenosis at the stent site. Step up and step down prior to and distal to the stent respectively. No evidence of dissection, thrombus, perforation, or distal embolic event. CHAPINCITO 3 flow in the LAD following intervention. LV angiography with anterolateral and apical hypokinesis. Other LV segments contracted normally. Estimated LV ejection fraction 55%. The patient was hemodynamically and neurologically stable during and following the procedure. Prior to intervention, he received intravenous Integrilin. A therapeutic activated clotting time was documented. Post-PCI, he was given a loading dose of ticagrelor 180 mg p.o. Following reperfusion of the LAD, his chest discomfort decreased in intensity. At the completion of procedure, it had almost completely resolved. Hemostasis obtained at the right radial catheterization site with application of a Terumo TR band. PAST MEDICAL HISTORY: 1. He denies any chronic medical illnesses. 2. Admission in 2001 for pleuritic chest pain. PAST SURGICAL HISTORY: 1. Status post bilateral inguinal hernia repair. 2. Status post right shoulder surgery. 3. Status post arthroscopic knee surgery. 4. Status post ankle surgery. MEDICATIONS AT TIME OF ADMISSION: No prescription medications. He does take vitamins and supplements. ALLERGIES: No known drug allergies. SOCIAL HISTORY: The patient is . 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 He has never smoked cigarettes. Two sons. REVIEW OF SYSTEMS: 1. As above. 2. Recent upper respiratory illness. Sore throat and cough. 3. No fevers or chills. 4. No current HEENT complaints. 5. No GI complaints. 6. No current pulmonary or urinary complaints. 7. No cerebrovascular or peripheral vascular complaints. 8. No bleeding complaints. PHYSICAL EXAMINATION: GENERAL: In the Emergency Department, he was in mild distress from his chest discomfort. VITAL SIGNS: In the Emergency Department on arrival revealed oral temperature 37.1, blood pressure 174/113, pulse oximetry on room air 97%, pulse 64. At 2:20 a.m., blood pressure 114/86. At 2:26 a.m., blood pressure reported to be 71/40 with subsequent decreased to 66/40. Heart rate in the 30s. After atropine and fluid boluses and initiation of dopamine, blood pressure 101/73 and pulse 60. EYES: Pupils equal and round. Anicteric. Conjunctivae normal. No xanthelasma. NECK: Slightly enlarged anterior cervical lymph nodes. Mildly tender to palpation. No jugular venous distension. Carotids 2/2 bilaterally. Normal upstroke. No bruits. MOUTH: Moist mucous membranes. No significant dental abnormalities. Oropharynx appeared normal. LUNGS: Normal respiratory effort. Clear. No rales or wheezes. HEART: Regular rate and rhythm. S1, S2 normal. No S3 or S4. No murmur or rub. ABDOMEN: Soft. Nontender. No palpable masses or organomegaly. No bruits. EXTREMITIES: No pretibial edema. No cyanosis or clubbing. PULSES: Distal pulses in all extremities palpable. NEUROLOGICAL: Alert and oriented x3. Motor grossly intact. PSYCHIATRIC: Affect normal. DATA: Chest x-ray reviewed by me. No heart failure. No infiltrate. Electrocardiogram was sinus rhythm. No acute ST or T-wave abnormalities on initial electrocardiogram. LABORATORY DATA: In the Emergency Department revealed WBC 10.27, hemoglobin 15.8, hematocrit 46.2, and platelet count 301. INR 1.0. PTT 27.2. Metabolic profile with sodium 139, potassium 3.5, chloride 104, carbon dioxide 30, BUN 25, creatinine 1.10, random glucose 149. AST is 36. ALT 90. Albumin 4.0. Lipase 137. Point of care troponin I 0.220. Post-PCI labs revealed BUN 21, creatinine 0.80, sodium 138, potassium 4.0, chloride 108, carbon dioxide 25. Glucose 131. Post-PCI CK total 313 with an MB of 35. Post-PCI troponin I 5.520. Post-PCI WBC 18.02. Hemoglobin 14.7. Platelet count 264. Lipid profile has returned. Triglycerides 47, total cholesterol 231, direct LDL 154, and HDL 54. ASSESSMENT: 1. Non-ST elevation myocardial infarction. 2. Total early mid left anterior descending occlusion on emergency cardiac catheterization. The patient did have right to left collateral flow. 3. Successful intervention to the mid left anterior descending occlusion with PTCA followed by deployment of a 3 x 3 mm drug-eluting stent. No residual stenosis at the stent site. No coronary, cardiac, or vascular complications. 4. Resolution of chest discomfort post PCI. 5. Normal overall left ventricular systolic function. Mild anterolateral and apical hypokinesis on left ventricular angiography. 6. No evidence of heart failure on exam or chest x-ray. 7. Vasovagal reaction in the Emergency Department. Exacerbated by a probable intravascular volume depletion as well as sublingual nitroglycerin. 8. Prerenal azotemia, consistent with intravascular volume depletion. 9. Prior history of vasovagal-type reaction in 2001. This also occurred in the Emergency Department. 10. No ventricular arrhythmias. 11. No vascular complications evident thus far at right radial catheterization site. 12. Coronary artery disease risk factors include family history of premature coronary artery disease in his father. The patient also has markedly elevated direct LDL at this time. In 2001, he had a good lipid profile. He has not had followup with a physician for many years. On arrival to the Emergency Department, he was hypertensive. This was prior to his vasovagal-type reaction. He may have underlying hypertension. His random glucose was elevated. This could be secondary to stress. The elevated white blood cell count also could be secondary to acute stress. 13. No cerebrovascular disease or peripheral vascular disease-type symptoms. 14. Severe early mid right coronary artery stenosis. This does not appear to be an acute type lesion. PLAN: 1. Admit to intensive care unit. 2. Ticagrelor 180 mg given post PCI. Thereafter 90 mg b.i.d. 3. Aspirin 81 mg daily. 4. Low-dose lisinopril and metoprolol as tolerated by blood pressure and heart rate. Titrate dose upwards as tolerated by blood pressure and heart rate. 5. Atorvastatin 80 mg post PCI and then daily. 6. Intravenous Integrilin for 12 hours. 7. Serial electrocardiograms, CBC, metabolic profiles, and cardiac enzymes. 8. Check hemoglobin A1c. 9. Echocardiogram to further assess LV systolic function and wall motion. 10. Elective intervention to the RCA stenosis in 1-2 days. I will be away until Saturday07/23/2017. Dr. Randall Alfaro will be covering for me the remainder of and July 18 and . On July 19, until 5:00 p.m. Thereafter, please contact the [facility] Physician Field Nurse Case Manager counter sales person for any problems or concerns.
[2017-07-17] MEDS: SODIUM CHLORIDE 0.9% 1000ML 1,000 ML IV SCH ×3 (08:38→20:39)
[2017-07-17] MEDS: ASPIRIN 81 MG ECTAB PO SCH (08:39)
[2017-07-17] MEDS: LISINOPRIL 2.5 MG TAB PO SCH (08:39)
[2017-07-17] MEDS: PANTOprazole SOD 40 MG TAB PO SCH (08:39)
[2017-07-17] MEDS: ATORVASTATIN 40 MG TAB PO SCH (08:40)
[2017-07-17] MEDS: EPTIFIBATIDE INJ 75 MG PREMIXED IV SCH ×2 (08:45→12:58)
[2017-07-17] MEDS ORDERED: METOPROLOL TARTRATE 25 MG TAB PO SCH (09:00)
--- NOTE | 2017-07-17 10:23 | Critical Care Consultation ---
Critical Care Consultation Date of Consultation: Jul 17, 2017. Attending Physician: Jalen Donaldson MD Reason for Consultation: EZ placement in LAD with 90% occlusion in RCA History of Present Illness Patient presented to the ED with a 3 day history of new recurrent low-grade bilateral chest pain on exertion that had previously resolved with rest. Yesterday evening, chest pain commenced at rest and did not subside. On presentation to the ED, patient was complaining on ongoing chest pain without radiation, rated 8/10 in severity. It was associated with diaphoresis, nausea and mild pleurisy. He denied associated shortness of breath, palpitations , lightheadedness/dizziness, orthopnea or associations with food intake or certain positions. He was given sublingual nitroglycerin. He otherwise denies a previous history of hypertension, diabetes, hypercholesterolemia. He is an active individual who exercises 6 days per week, without any recent noted changes in exercise tolerance. He is a nonsmoker. His family history is significant for his father having had an DE with CABG at the age of 55. Initial troponin was elevated at 0.220, although initial EKG did not show any acute ischemic changes. However, while in the ED. the patient had a cardiac event, which entailed hypertension, diaphoresis, and severe bradycardia with a sinus pause. There is also a report of possible complete heart block. He was given IV fluids, dopamine, and atropine, which helped to normalize his rhythm and vitals. Subsequently a heart alert was called, and patient was taken to the labelling machine operator by Dr. Fairbanks. In the labelling machine operator, a total early mid LAD occlusion and 80% early mid RCA stenosis were found. Successful reperfusion of the LAD was attained with balloon angioplasty and subsequent deployment of a drug-eluting stents. LV angiography showed anterolateral and apical hypokinesis, with estimated LV ejection fraction 55%. The patient was hemodynamically and neurologically stable through out the procedure, with largely resolved chest pain post PCI. He was subsequently transferred to the ICU. Past Medical/Surgical History PAST MEDICAL HISTORY: No chronic medical illnesses PAST SURGICAL HISTORY: Bilateral inguinal hernia repair Right shoulder surgery Arthroscopic knee surgery Ankle surgery Social History Smoking Status: Never Smoker Smokeless Tobacco Use: No Drug Use: none Marital Status: Housing Status: lives with family Occupation Status: employed Allergies Coded Allergies: No Known Allergies (Verified , 07/17/17) Home Medications No Active Prescriptions or Reported Meds Current Inpatient Medications Current Inpatient Medications Medications (Trade) Dose Ordered Sig/Florin Route Start Time Stop Time Status Last Admin Dose Admin Sodium Chloride 1,000 ml @ 125 mls/hr Q8H IV 07/17/17 05:15 08/16/17 05:14 07/17/17 08:38 125 MLS/HR Atropine Sulfate (Atropine Sulfate 0.1MG/Ml Inj) 0.5 mg ONE PRN IV 07/17/17 05:15 08/16/17 05:14 Ondansetron HCl (Zofran Inj) 4 mg Q6H PRN IV 07/17/17 05:15 08/16/17 05:14 Aspirin (Ecotrin Tab) 81 mg QAM PO 07/17/17 09:00 08/16/17 08:59 07/17/17 08:39 81 MG Metoprolol Tartrate (Lopressor Tab) 12.5 mg Q12 PO 07/17/17 09:00 08/16/17 08:59 07/17/17 08:39 12.5 MG Lisinopril (Zestril Tab) 2.5 mg QAM PO 07/17/17 09:00 08/16/17 08:59 07/17/17 08:39 2.5 MG Lorazepam 0.5 mg/ Syringe 1 ml @ 1 mls/min Q6H PRN IV 07/17/17 05:15 08/16/17 05:14 Atorvastatin Calcium (Lipitor Tab) 80 mg QAM PO 07/17/17 05:15 08/16/17 05:14 Future hold 07/17/17 08:40 80 MG Acetaminophen (Tylenol Tab) 650 mg Q4H PRN PO 07/17/17 05:15 08/16/17 05:14 Lorazepam (Ativan Tab) 1 mg Q6H PRN PO 07/17/17 05:15 08/16/17 05:14 Lorazepam (Ativan Inj) 1 mg Q6H PRN IV 07/17/17 05:15 08/16/17 05:14 Zolpidem Tartrate (Ambien Tab) 5 mg HSZ PRN PO 07/17/17 05:15 08/16/17 05:14 Nitroglycerin (Nitrostat Tab) 0.4 mg UD PRN SL 07/17/17 05:15 08/16/17 05:14 Al Hydrox/Mg Hydrox/Simethicone (Maalox Max Susp) 15 ml Q4H PRN PO 07/17/17 05:15 08/16/17 05:14 Magnesium Hydroxide (Milk Of Magnesia Susp) 30 ml Q12H PRN PO 07/17/17 05:15 08/16/17 05:14 Pantoprazole Sodium (Protonix Tab) 40 mg DAILY PO 07/17/17 09:00 08/16/17 08:59 07/17/17 08:39 40 MG Morphine Sulfate (MoRPHine SULFATE INJ) 2 mg Q2H PRN IV 07/17/17 05:15 07/31/17 05:14 Ticagrelor (Brilinta Cap) 90 mg BID PO 07/17/17 17:00 08/16/17 16:59 Lorazepam (Ativan Inj) 0.5 mg Q6H PRN IV 07/17/17 06:15 08/16/17 06:14 Lorazepam 1 mg/ Syringe 1 ml @ 1 mls/min Q6H PRN IV 07/17/17 06:30 08/16/17 06:29 Eptifibatide 100 ml @ 15.5 mls/hr Q6H28M IV 07/17/17 06:30 07/17/17 16:00 07/17/17 08:45 15.5 MLS/HR Miscellaneous (Stop Order) 1 ea 1600 ONCE N/A 07/17/17 16:00 07/17/17 16:01 Insulin Aspart (novoLOG ASPART) SLIDING SCALE If C... ACHS SC 07/17/17 11:00 08/16/17 10:59 Glucose (Glucose 40% Gel) UD PRN PO 07/17/17 07:00 08/16/17 06:59 Glucose (Glucose Chew Tab) 1 tabs UD PRN PO 07/17/17 07:00 08/16/17 06:59 Dextrose (Dextrose 50% 50ML Syringe) 50 ml UD PRN IV 07/17/17 07:00 08/16/17 06:59 Glucagon (Glucagon Inj) 1 mg UD PRN SQ 07/17/17 07:00 08/16/17 06:59 Review of Systems See HPI for pertinent positives and negatives. A total of ten systems were reviewed and were otherwise negative. Physical Exam Date Time Temp Pulse Resp B/P (MAP) Pulse Ox O2 Delivery O2 Flow Rate FiO2 07/17/17 10:00 48 13 107/73 (84) 95 Room Air 07/17/17 09:23 45 14 111/69 (83) 95 Room Air 07/17/17 08:30 63 17 110/80 (90) 96 Room Air 07/17/17 08:00 Room Air 07/17/17 08:00 36.6 52 16 104/78 (87) 96 Room Air 07/17/17 07:30 63 17 112/89 (97) 95 Room Air 07/17/17 07:00 56 12 114/93 (100) 07/17/17 06:45 36.6 61 15 122/82 (95) 96 07/17/17 06:31 63 14 110/76 (87) 95 07/17/17 06:30 36.7 57 20 07/17/17 06:16 36.6 71 23 147/90 (109) 97 07/17/17 06:16 71 23 147/90 (109) 97 07/17/17 06:15 70 17 97 07/17/17 05:45 122/83 (96) 07/17/17 05:15 36.6 62 18 126/81 94 Room Air 07/17/17 05:02 62 16 129/80 (96) 95 Room Air 07/17/17 04:54 63 16 132/83 (99) 96 Room Air 07/17/17 04:39 60 16 123/79 (94) 95 Mask 6 07/17/17 03:23 37.1 66 15 125/86 98 07/17/17 03:00 66 15 125/86 98 Room Air 07/17/17 02:57 67 07/17/17 02:55 65 16 118/73 97 07/17/17 02:50 56 14 138/82 95 07/17/17 02:45 60 19 128/75 94 07/17/17 02:40 62 15 116/71 94 07/17/17 02:39 60 20 96 07/17/17 02:38 63 18 92 07/17/17 02:37 61 18 92 07/17/17 02:36 65 20 94 07/17/17 02:35 60 13 101/73 07/17/17 02:34 59 18 100/69 07/17/17 02:33 58 24 07/17/17 02:32 45 19 96 07/17/17 02:31 49 20 96 07/17/17 02:30 47 07/17/17 02:30 42 14 87/57 96 07/17/17 02:29 42 19 95 07/17/17 02:28 38 17 66/40 96 07/17/17 02:27 37 17 98 07/17/17 02:27 37 07/17/17 02:26 32 07/17/17 02:26 39 29 71/40 96 07/17/17 02:25 36 07/17/17 02:25 42 12 89 07/17/17 02:24 61 16 93 07/17/17 02:23 63 21 93 07/17/17 02:22 62 19 94 07/17/17 02:21 62 17 93 07/17/17 02:20 54 15 114/86 94 07/17/17 02:20 65 18 114/86 93 Room Air 07/17/17 02:01 97 Room Air 07/17/17 01:58 Room Air 07/17/17 01:43 69 07/17/17 01:35 37.1 64 18 174/113 97 Room Air 07/17/17 01:32 97 Room Air GENERAL: alert, well appearing, lying in bed, no acute distress, non-toxic HEAD: Normocephalic, atraumatic. EYES: PERRL, EOMI, normal sclera and conjunctiva OROPHARYNX: No exudate, no erythema. No perioral cyanosis. Lips, buccal mucosa, and tongue normal and mucous membranes are dry NECK: Supple, no adenopathy, non-tender. No carotid bruits appreciated. LUNGS: Clear to auscultation. Normal chest wall mechanics, good air entry. No crepitations, crackles, or wheezes HEART: RRR, S1 and S2 normal, no murmurs appreciated. No reproducible tenderness on palpation of the chest wall. ABDOMEN: Soft, non-tender, normo-active bowel sounds, no masses, no rebound or guarding. BACK: Back is symmetrical on inspection, no deformities, no midline tenderness, no CVA tenderness. SKIN: Warm, pink, dry. No erythema, rashes, or bruising. EXTREMITIES: Grossly normal. Moving all 4 limbs, strength 5/5. No pitting edema. Compression band on right wrist, no obvious bleeding or hematoma. Calves non tender. NEURO: Alert, Ox3. No focal deficits. Normal sensorium, cranial nerves II-XII grossly intact, normal speech. PSYCH: Mood and affect appropriate. Laboratory Results Last 24 Hours Test 07/17/17 01:35 07/17/17 01:59 07/17/17 03:57 07/17/17 04:20 White Blood Count 10.27 K/uL Red Blood Count 5.44 M/uL Hemoglobin 15.8 g/dL Hematocrit 46.2 % Mean Corpuscular Volume 84.9 fL Mean Corpuscular Hemoglobin 29.0 pg Mean Corpuscular Hemoglobin Concent 34.2 g/dl Platelet Count 301 K/uL Mean Platelet Volume 9.3 fL Neutrophils (%) (Auto) 55.4 % Lymphocytes (%) (Auto) 29.7 % Monocytes (%) (Auto) 9.8 % Eosinophils (%) (Auto) 4.2 % Basophils (%) (Auto) 0.5 % Neutrophils # (Auto) 5.69 K/uL Lymphocytes # (Auto) 3.05 K/uL Monocytes # (Auto) 1.01 K/uL Eosinophils # (Auto) 0.43 K/uL Basophils # (Auto) 0.05 K/uL RDW Standard Deviation 40.2 fL RDW Coefficient of Variation 13.1 % Immature Granulocyte % (Auto) 0.4 % Immature Granulocyte # (Auto) 0.04 K/uL Prothrombin Time 10.5 SECONDS Prothromb Time International Ratio 1.0 Activated Partial Thromboplast Time 27.2 SECONDS Partial Thromboplastin Ratio 1.0 Sodium Level 139 mmol/L Potassium Level 3.5 mmol/L Chloride Level 104 mmol/L Carbon Dioxide Level 30 mmol/L Anion Gap 5.0 mmol/L Blood Urea Nitrogen 25 mg/dl Creatinine 1.10 mg/dl Est Creatinine Clear Calc Drug Dose 86.5 ml/min Estimated GFR () 87.7 Estimated GFR (Non- 75.7 BUN/Creatinine Ratio 22.7 Random Glucose 149 mg/dl Calcium Level 9.6 mg/dl Total Bilirubin 0.4 mg/dl Direct Bilirubin < 0.1 mg/dl Aspartate Amino Transf (AST/SGOT) 36 U/L Alanine Aminotransferase (ALT/SGPT) 90 U/L Alkaline Phosphatase 87 U/L Total Protein 7.8 gm/dl Albumin 4.0 gm/dl Lipase 137 U/L Lyme Disease IgG Antibody NEG Lyme Disease IgM Antibody NEG Bedside Troponin I 0.220 ng/ml Kaolin Activated Coagulation Time 213 SECONDS 351 SECONDS Test 07/17/17 05:54 White Blood Count 18.02 K/uL Red Blood Count 5.14 M/uL Hemoglobin 14.7 g/dL Hematocrit 43.4 % Mean Corpuscular Volume 84.4 fL Mean Corpuscular Hemoglobin 28.6 pg Mean Corpuscular Hemoglobin Concent 33.9 g/dl Platelet Count 264 K/uL Mean Platelet Volume 9.4 fL Neutrophils (%) (Auto) 85.0 % Lymphocytes (%) (Auto) 9.4 % Monocytes (%) (Auto) 4.7 % Eosinophils (%) (Auto) 0.4 % Basophils (%) (Auto) 0.2 % Neutrophils # (Auto) 15.33 K/uL Lymphocytes # (Auto) 1.70 K/uL Monocytes # (Auto) 0.84 K/uL Eosinophils # (Auto) 0.07 K/uL Basophils # (Auto) 0.03 K/uL RDW Standard Deviation 39.5 fL RDW Coefficient of Variation 12.9 % Immature Granulocyte % (Auto) 0.3 % Immature Granulocyte # (Auto) 0.05 K/uL Sodium Level 138 mmol/L Potassium Level 4.0 mmol/L Chloride Level 108 mmol/L Carbon Dioxide Level 25 mmol/L Anion Gap 5.0 mmol/L Blood Urea Nitrogen 21 mg/dl Creatinine 0.80 mg/dl Est Creatinine Clear Calc Drug Dose 122.1 ml/min Estimated GFR () 117.4 Estimated GFR (Non- 101.3 BUN/Creatinine Ratio 26.5 Random Glucose 131 mg/dl Estimated Average Glucose 128 mg/dl Hemoglobin A1c 6.1 % Calcium Level 8.2 mg/dl Magnesium Level 1.8 mg/dl Total Creatine Kinase 313 U/L Creatine Kinase MB 35.0 ng/ml Creatine Kinase MB Ratio 11.2 Troponin I 5.520 ng/ml Triglycerides Level 47 mg/dl Cholesterol Level 231 mg/dl HDL Cholesterol 54 mg/dl LDL Cholesterol Direct 154 mg/dl LDL Cholesterol, Calculated mg/dl VLDL Cholesterol, Calculated 9 mg/dl Cholesterol/HDL Ratio 4.3 Assessment & Plan Reason critically ill: 56 year old male presents with NSTEMI secondary to LAD occlusion, with cardiac event in ED necessitating cardiac catheterization and PCI. Neuro - CAM ICU negative. - Morphine 2mg IV PRN pain - Continue to monitor for changes in RASS CV - Vitals stable post LAD stent. Telemetry shows short runs of a few seconds of SVT that spontaneously resolve * Continue to monitor on telemetry - Meds: Ticagrelor 90mg BID, aspirin 81 mg daily, atorvastatin 80 mg daily. Started on low-dose lisinopril and metoprolol, to be titrated up as tolerated by blood pressure and heart rate. - Diagnostics: * Troponin rising 0.22 --> 5.52. Continue to trend CBC, troponin, and cardiac enzymes q8h * Serial electrocardiograms, * Complete echocardiogram to further assess LV systolic function and wall motion - Plans for elective PCI to the RCA stenosis tomorrow Resp - Saturating well on room air. GI/Nutrition - Lipase negative. Elevated ALT. Trend LFTs - Heart healthy diet Renal/ - Evidence of dehydration with elevated BUN:Cr ratio. * IVF NSS @ 125cc/hr. Trend BMP ID - No signs of acute infection Endo - HbA1c 6.1. Continue to monitor glucose - Elevated cholesterol level. Started on high dose statin Heme - Leukocytosis, possibly stress-related. Trend CBC. VTE Prophylaxis - Currently anticoagulated with Ticagrelor Resident Physician Supervision Note: I was present with Dr. Maricel Alvarez during the history and exam. I discussed the case with the resident and agree with the findings and plan as documented in the note. Any exceptions or clarifications are listed here: Patient with NSTEMI, s/p emergent cath for LAD occlusion with resolution of his symptoms. Requires staged catheterization for RCA lesion Continue on Lisinopril, metoprolol, ASA, Brilinta and Lipitor Finish infusion of Integrilin Continue hydration until tomorrow. He will receive a second dose of IV contrast and has mildly elevated BUN/Cr ratio Critical care time spent greater than 25 minutes Documented By: Wallace Ling MD Resident Tracking Resident Involvement: Resident Care Provided Care Provided: Adult Hospital Medicine
[2017-07-17] MEDS: INSULIN ASPART 100 UNITS/ML 3 ML PEN SC SCH ×3 (11:00→20:38)
--- NOTE | 2017-07-17 15:26 | ECHOCARDIOGRAM REPORT ---
*NOTICE TO RECEIVING LIBERTARIAN AGENCY This information is strictly Confidential and protected under [place] law. [place] law prohibits you from making any further disclosure of this information unless further disclosure is expressly permitted by the written consent of the person to whom it pertains or is authorized by law. A general authorization for the release of medical or other information is not sufficient for this purpose. Hospital accepts no responsibility if the information is made available to any other person, INCLUDING THE PATIENT. Interpretation Summary * Name: BUDDY DIAZ Study Date: 07/17/2017 06:26 AM BP: 129/80 mmHg * [facility] HR: 62 * : 1960 (M/d/yyyy) Gender: Male Height: 68 in * Age: 56 yrs Ethnicity: [place] Weight: 212 lb * Ordering Physician: Fredo Fairbanks MD, [facility] * Performed By: Jadyn Castellanos * * Reason For Study: AMI * BSA: 2.1 m2 * -- Conclusions -- * Left ventricular systolic function is low normal. * Hypokinesis of the mid and distal anterior wall and adjacent anteroseptum, and akinesis of the entire apex. No mural thrombus. * Ejection fraction = 45-50%. * There is borderline concentric left ventricular hypertrophy. * There is mild mitral regurgitation. Procedure Details * A complete two-dimensional transthoracic echocardiogram was performed (2D, M-mode, Doppler and color flow Doppler). Left Ventricle * The left ventricle is grossly normal size. * There is borderline concentric left ventricular hypertrophy. * Ejection Fraction = 45-50%. * Left ventricular systolic function is low normal. * Hypokinesis of the mid and distal anterior wall and adjacent anteroseptum, and akinesis of the entire apex. No mural thrombus. Right Ventricle * The right ventricle is grossly normal size. * The right ventricular systolic function is normal as assessed by tricuspid annular plane systolic excursion (TAPSE) (normal >1.5 cm). Atria * The left atrium is moderately dilated. * Right atrial size is normal. * There is no evidence of atrial septal defect, but resolution does not allow assessment for a patent foramen ovale. Mitral Valve * The mitral valve anatomy is normal. * There is mild mitral regurgitation. Tricuspid Valve * The tricuspid valve anatomy is normal. Aortic Valve * The aortic valve is normal in structure and function. * No hemodynamically significant valvular aortic stenosis. * No aortic regurgitation is present. Pulmonic Valve * The pulmonary valve is not well seen, but the Doppler examination is normal without significant regurgitation or stenosis. Great Vessels * The aortic root is normal size. * The pulmonary is not well visualized. Pericardium/Pleural * There is no pericardial effusion. Great Vessels * Inferior vena cava not well visualized. MMode 2D Measurements and Calculations IVSd 1.6 cm IVSs 2.1 cm LVIDd 5.8 cm LVIDs 3.8 cm LVPWd 0.79 cm LVPWs 1.3 cm IVS/LVPW 2.1 FS 34.3 % EDV(Teich) 169.5 ml ESV(Teich) 63.5 ml EF(Teich) 62.5 % EDV(cubed) 199.6 ml ESV(cubed) 56.6 ml EF(cubed) 71.7 % % IVS thick 28.6 % % LVPW thick 61.4 % LV mass(C)d 301.5 grams LV mass(C)dI 143.9 grams/m\S\2 LV mass(C)s 262.7 grams LV mass(C)sI 125.4 grams/m\S\2 SV(Teich) 106.0 ml SI(Teich) 50.6 ml/m\S\2 SV(cubed) 143.0 ml SI(cubed) 68.3 ml/m\S\2 ACS 1.9 cm LA dimension 4.8 cm asc Aorta Diam 3.2 cm LVOT diam 2.2 cm LVOT area 3.6 cm\S\2 LVAd ap4 44.5 cm\S\2 LVLd ap4 9.8 cm EDV(MOD-sp4) 160.4 ml EDV(sp4-el) 172.1 ml LVAs ap4 25.3 cm\S\2 LVLs ap4 8.7 cm ESV(MOD-sp4) 59.7 ml ESV(sp4-el) 62.7 ml EF(MOD-sp4) 62.7 % EF(sp4-el) 63.6 % LVAd ap2 48.6 cm\S\2 LVLd ap2 10.2 cm EDV(MOD-sp2) 194.1 ml EDV(sp2-el) 197.5 ml LVAs ap2 27.9 cm\S\2 LVLs ap2 8.7 cm ESV(MOD-sp2) 72.9 ml ESV(sp2-el) 75.6 ml EF(MOD-sp2) 62.4 % EF(sp2-el) 61.7 % LVLd %diff 3.9 % EDV(MOD-bp) 177.9 ml LVLs %diff 1.0 % ESV(MOD-bp) 65.7 ml EF(MOD-bp) 63.1 % SV(MOD-sp4) 100.6 ml SI(MOD-sp4) 48.0 ml/m\S\2 SV(MOD-sp2) 121.2 ml SI(MOD-sp2) 57.9 ml/m\S\2 SV(MOD-bp) 112.3 ml SI(MOD-bp) 53.6 ml/m\S\2 SV(sp4-el) 109.4 ml SI(sp4-el) 52.2 ml/m\S\2 SV(sp2-el) 121.9 ml SI(sp2-el) 58.2 ml/m\S\2 Doppler Measurements and Calculations MV E max albert 50.2 cm/sec MV A max albert 62.7 cm/sec MV E/A 0.80 MV dec time 0.16 sec Ao V2 max 111.3 cm/sec Ao max PG 5.0 mmHg Ao max PG (full) 2.2 mmHg KYE(V,A) 2.7 cm\S\2 KYE(V,D) 2.7 cm\S\2 LV V1 max PG 2.7 mmHg LV V1 max 82.3 cm/sec MR max albert 265.7 cm/sec MR max PG 28.2 mmHg PA V2 max 59.9 cm/sec PA max PG 1.4 mmHg
[2017-07-17] MEDS ORDERED: Integrelin infusion --> STOP ORDER ONE (16:00)
[2017-07-17] MEDS: TICAGRELOR 90 MG TAB PO SCH (16:43)
--- NOTE | 2017-07-17 18:37 | Progress Note ---
Subjective Date of Service: Jul 17, 2017. Subjective Pt evaluation today including: conversation w/ patient, conversation w/ family (, children), physical exam, chart review, lab review, review of studies ( echo, cath report), conversation w/ client care consultant (cardiology), review of inpatient medication list Pain: none PO Intake: normal Voiding: no voiding problems had very lengthy discussion (about 30 minutes) regarding risk factors for his CAD he and his had numerous questions about medications, diet, screening of their children, plan of care, etc he reported no dyspnea, chest pain, right wrist pain, etc denies h/o T2DM but he admitted he had not seen a physician in "quite some time " Problem List Medical Problems: (1) Acute coronary syndrome Status: Acute Review of Systems Constitutional: No fever Respiratory: No cough, No shortness of breath, No dyspnea on exertion Cardiac: No chest pain, No orthopnea Abdomen: No pain Objective Vital Signs Date Time Temp Pulse Resp B/P (MAP) Pulse Ox O2 Delivery O2 Flow Rate FiO2 07/17/17 16:00 95 Room Air 07/17/17 16:00 36.7 59 18 110/73 (85) 95 Room Air 07/17/17 14:00 62 18 116/77 (90) 93 Room Air 07/17/17 13:07 55 16 128/82 (97) 96 Room Air 07/17/17 12:01 60 16 129/88 (102) 96 Room Air 07/17/17 12:00 Room Air 07/17/17 11:00 36.8 62 24 137/103 (114) 97 Room Air 07/17/17 10:00 48 13 107/73 (84) 95 Room Air 07/17/17 09:23 45 14 111/69 (83) 95 Room Air 07/17/17 08:30 63 17 110/80 (90) 96 Room Air 07/17/17 08:00 Room Air 07/17/17 08:00 36.6 52 16 104/78 (87) 96 Room Air 07/17/17 07:30 63 17 112/89 (97) 95 Room Air 07/17/17 07:00 56 12 114/93 (100) 07/17/17 06:45 36.6 61 15 122/82 (95) 96 07/17/17 06:31 63 14 110/76 (87) 95 07/17/17 06:30 36.7 57 20 07/17/17 06:16 36.6 71 23 147/90 (109) 97 07/17/17 06:16 71 23 147/90 (109) 97 07/17/17 06:15 70 17 97 07/17/17 05:45 122/83 (96) 07/17/17 05:15 36.6 62 18 126/81 94 Room Air 07/17/17 05:02 62 16 129/80 (96) 95 Room Air 07/17/17 04:54 63 16 132/83 (99) 96 Room Air 07/17/17 04:39 60 16 123/79 (94) 95 Mask 6 07/17/17 03:23 37.1 66 15 125/86 98 07/17/17 03:00 66 15 125/86 98 Room Air 07/17/17 02:57 67 07/17/17 02:55 65 16 118/73 97 07/17/17 02:50 56 14 138/82 95 07/17/17 02:45 60 19 128/75 94 07/17/17 02:40 62 15 116/71 94 07/17/17 02:39 60 20 96 07/17/17 02:38 63 18 92 07/17/17 02:37 61 18 92 07/17/17 02:36 65 20 94 07/17/17 02:35 60 13 101/73 07/17/17 02:34 59 18 100/69 07/17/17 02:33 58 24 07/17/17 02:32 45 19 96 07/17/17 02:31 49 20 96 07/17/17 02:30 47 07/17/17 02:30 42 14 87/57 96 07/17/17 02:29 42 19 95 07/17/17 02:28 38 17 66/40 96 07/17/17 02:27 37 17 98 07/17/17 02:27 37 07/17/17 02:26 32 07/17/17 02:26 39 29 71/40 96 07/17/17 02:25 36 07/17/17 02:25 42 12 89 07/17/17 02:24 61 16 93 07/17/17 02:23 63 21 93 07/17/17 02:22 62 19 94 07/17/17 02:21 62 17 93 8/23/17 02:20 54 15 114/86 94 07/17/17 02:20 65 18 114/86 93 Room Air 07/17/17 02:01 97 Room Air 07/17/17 01:58 Room Air 07/17/17 01:43 69 07/17/17 01:35 37.1 64 18 174/113 97 Room Air 07/17/17 01:32 97 Room Air Physical Exam General Appearance: no apparent distress ENT: pharynx normal Neck: no JVD Respiratory/Chest: lungs clear, no respiratory distress, no accessory muscle use Cardiovascular: regular rate, rhythm, no gallop, no murmur Abdomen: normal bowel sounds, non tender, soft, no organomegaly Extremities: no pedal edema Neurologic/Psychiatric: alert, oriented x 3 Skin: + pertinent finding (right wrist - radial artery w/o aneurysm, ecchymoses or swelling) Comments: radial pulse, right, 2+ Laboratory Results Last 24 Hours Test 07/17/17 01:35 07/17/17 01:59 07/17/17 03:57 07/17/17 04:20 White Blood Count 10.27 K/uL Red Blood Count 5.44 M/uL Hemoglobin 15.8 g/dL Hematocrit 46.2 % Mean Corpuscular Volume 84.9 fL Mean Corpuscular Hemoglobin 29.0 pg Mean Corpuscular Hemoglobin Concent 34.2 g/dl Platelet Count 301 K/uL Mean Platelet Volume 9.3 fL Neutrophils (%) (Auto) 55.4 % Lymphocytes (%) (Auto) 29.7 % Monocytes (%) (Auto) 9.8 % Eosinophils (%) (Auto) 4.2 % Basophils (%) (Auto) 0.5 % Neutrophils # (Auto) 5.69 K/uL Lymphocytes # (Auto) 3.05 K/uL Monocytes # (Auto) 1.01 K/uL Eosinophils # (Auto) 0.43 K/uL Basophils # (Auto) 0.05 K/uL RDW Standard Deviation 40.2 fL RDW Coefficient of Variation 13.1 % Immature Granulocyte % (Auto) 0.4 % Immature Granulocyte # (Auto) 0.04 K/uL Prothrombin Time 10.5 SECONDS Prothromb Time International Ratio 1.0 Activated Partial Thromboplast Time 27.2 SECONDS Partial Thromboplastin Ratio 1.0 Sodium Level 139 mmol/L Potassium Level 3.5 mmol/L Chloride Level 104 mmol/L Carbon Dioxide Level 30 mmol/L Anion Gap 5.0 mmol/L Blood Urea Nitrogen 25 mg/dl Creatinine 1.10 mg/dl Est Creatinine Clear Calc Drug Dose 86.5 ml/min Estimated GFR () 87.7 Estimated GFR (Non- 75.7 BUN/Creatinine Ratio 22.7 Random Glucose 149 mg/dl Calcium Level 9.6 mg/dl Total Bilirubin 0.4 mg/dl Direct Bilirubin < 0.1 mg/dl Aspartate Amino Transf (AST/SGOT) 36 U/L Alanine Aminotransferase (ALT/SGPT) 90 U/L Alkaline Phosphatase 87 U/L Total Protein 7.8 gm/dl Albumin 4.0 gm/dl Lipase 137 U/L Lyme Disease IgG Antibody NEG Lyme Disease IgM Antibody NEG Bedside Troponin I 0.220 ng/ml Kaolin Activated Coagulation Time 213 SECONDS 351 SECONDS Test 07/17/17 05:54 07/17/17 11:29 07/17/17 13:08 07/17/17 15:28 White Blood Count 18.02 K/uL Red Blood Count 5.14 M/uL Hemoglobin 14.7 g/dL Hematocrit 43.4 % Mean Corpuscular Volume 84.4 fL Mean Corpuscular Hemoglobin 28.6 pg Mean Corpuscular Hemoglobin Concent 33.9 g/dl Platelet Count 264 K/uL Mean Platelet Volume 9.4 fL Neutrophils (%) (Auto) 85.0 % Lymphocytes (%) (Auto) 9.4 % Monocytes (%) (Auto) 4.7 % Eosinophils (%) (Auto) 0.4 % Basophils (%) (Auto) 0.2 % Neutrophils # (Auto) 15.33 K/uL Lymphocytes # (Auto) 1.70 K/uL Monocytes # (Auto) 0.84 K/uL Eosinophils # (Auto) 0.07 K/uL Basophils # (Auto) 0.03 K/uL RDW Standard Deviation 39.5 fL RDW Coefficient of Variation 12.9 % Immature Granulocyte % (Auto) 0.3 % Immature Granulocyte # (Auto) 0.05 K/uL Sodium Level 138 mmol/L Potassium Level 4.0 mmol/L Chloride Level 108 mmol/L Carbon Dioxide Level 25 mmol/L Anion Gap 5.0 mmol/L Blood Urea Nitrogen 21 mg/dl Creatinine 0.80 mg/dl Est Creatinine Clear Calc Drug Dose 122.1 ml/min Estimated GFR () 117.4 Estimated GFR (Non- 101.3 BUN/Creatinine Ratio 26.5 Random Glucose 131 mg/dl Estimated Average Glucose 128 mg/dl Hemoglobin A1c 6.1 % Calcium Level 8.2 mg/dl Magnesium Level 1.8 mg/dl Total Creatine Kinase 313 U/L 573 U/L Creatine Kinase MB 35.0 ng/ml 62.8 ng/ml Creatine Kinase MB Ratio 11.2 11.0 Troponin I 5.520 ng/ml 13.900 ng/ml Triglycerides Level 47 mg/dl Cholesterol Level 231 mg/dl HDL Cholesterol 54 mg/dl LDL Cholesterol Direct 154 mg/dl LDL Cholesterol, Calculated mg/dl VLDL Cholesterol, Calculated 9 mg/dl Cholesterol/HDL Ratio 4.3 Bedside Glucose 99 mg/dl 90 mg/dl Assessment and Plan 56yo male with: 1. NSTEMI 2nd to 100% occluded LAD - s/p PTCA with drug-eluting stent by Dr. Fairbanks yesterday. Cont asa, brilinta, statin, BB, LISSETH. He also has an 80% occluded RCA which Dr. Alfaro will intervene on tomorrow. Continue telemetry. Aggressive risk factor modification including Rx of pre-T2DM, lipids, etc. Trend the troponins until peak is seen. 2. hyperlipidemia - high intensity statin. 3. pre-T2DM - a1c 6.1% c/w such. Living Supervisor consult for nutritional counseling. 4. mild acute systolic CHF - compensated. This is 2nd to #1 above. 5. mild acute kidney injury - also likely 2nd to #1 above. Resolved with IVF. Continue judicious use of IVF. Repeat labs in am. 6. DVT proph - following cath tomorrow consider lovenox. total time today about 45 minutes, 30 minutes of which was counseling he and his family about #1, #2, #3 Continued [facility] stay due to: multiple IV medications needed Discharge planning: home
[2017-07-17 21:43] LABS: CKMB/CK RATIO 8.5 (0-3.0)
[2017-07-18] VITALS (19 sets, daily range): BP systolic 103–130; BP diastolic 59–93; PULSE 49–78; TEMP 36.7–37; O2SAT 91–97
[2017-07-18] MEDS: ACETAMINOPHEN 325 MG TAB PO PRN (02:41)
[2017-07-18] MEDS: SODIUM CHLORIDE 0.9% 1000ML 1,000 ML IV SCH (02:43)
[2017-07-18 05:45] LABS: BASO % 0.3 %; BASO ABS # 0.03 K/uL (0-0.2); COMPLETE YES; EOS % 2.6 %; HEMATOCRIT 40.1 % (42-52); IG% 0.2 %; LYMPH % 17.6 %; LYMPH ABS # 1.71 K/uL (1.2-3.4); MEAN CELL VOLUME 84.4 fL (80-100); MEAN CORPUSCULAR HEMOGLOBIN 28.8 pg (25-34); MEAN CORPUSCULAR HGB CONC 34.2 g/dl (32-36); MEAN PLATELET VOLUME 9.3 fL (7.4-10.4); MONO % 10.2 %; NEUT % 69.1 %; PLATELET COUNT 234 K/uL (130-400); RED BLOOD COUNT 4.75 M/uL (4.7-6.1); WHITE BLOOD COUNT 9.69 K/uL (4.8-10.8)
[2017-07-18] MEDS: INSULIN ASPART 100 UNITS/ML 3 ML PEN SC SCH ×4 (06:45→21:00)
[2017-07-18 06:48] LABS: BUN/CREATININE RATIO 17.4 (10-20); CALCIUM 8.2 mg/dl (8.5-10.1); CREATININE 0.78 mg/dl (0.60-1.40); MAGNESIUM 2.1 mg/dl (1.8-2.4); PHOSPHORUS 2.3 mg/dl (2.5-4.9); POTASSIUM 3.9 mmol/L (3.5-5.1)
[2017-07-18] MEDS: LISINOPRIL 2.5 MG TAB PO SCH (07:45)
[2017-07-18] MEDS: ASPIRIN 81 MG ECTAB PO SCH (07:45)
[2017-07-18] MEDS: ATORVASTATIN 40 MG TAB PO SCH (07:45)
[2017-07-18] MEDS: PANTOprazole SOD 40 MG TAB PO SCH (07:45)
[2017-07-18] MEDS: TICAGRELOR 90 MG TAB PO SCH ×2 (07:46→20:36)
--- NOTE | 2017-07-18 10:15 | Critical Care Progress Note ---
Critical Care Progress Note Date of Service Jul 18, 2017. ICU Day ICU Day Number: [address] Ling Subjective Patient well, denies acute issues currently. Does say he woke up once mildly short of breath and was given O2 via nasal cannula at ~midnight, which he worse for a few hours, but then has not required it since. Patient also states he does have occasional episodes of flutters. This is consistent with the short runs of SVT seen overnight on monitor, which resolved spontaneously. He continues to deny, chest pain, nausea, diaphoresis, abdominal pain, pleurisy. He has sat up out of bed, without recurrence of symptoms on mild exertion. He is voiding and have bowel movements without issue. He is NPO currently, but was tolerating diet yesterday. Objective GENERAL: alert, well appearing, sitting out of bed, no acute distress, non- toxic HEAD: Normocephalic, atraumatic. EYES: PERRL, EOMI, normal sclera and conjunctiva OROPHARYNX: No exudate, no erythema. No perioral cyanosis. Lips, buccal mucosa, and tongue normal and mucous membranes are dry NECK: Supple, no adenopathy, non-tender. No carotid bruits appreciated. LUNGS: Clear to auscultation. Normal chest wall mechanics, good air entry. Some bibasilar crackles, no wheezes HEART: RRR, S1 and S2 normal, no murmurs appreciated. No reproducible tenderness on palpation of the chest wall. ABDOMEN: Soft, non-tender, normo-active bowel sounds, no masses, no rebound or guarding. BACK: Back is symmetrical on inspection, no deformities, no midline tenderness, no CVA tenderness. SKIN: Warm, pink, dry. No erythema, rashes, or bruising. EXTREMITIES: Grossly normal. Moving all 4 limbs, strength 5/5. No pitting edema. Compression band on right wrist, no obvious bleeding or hematoma. Calves non tender. NEURO: Alert, Ox3. No focal deficits. Normal sensorium, cranial nerves II-XII grossly intact, normal speech. PSYCH: Mood and affect appropriate. Current SOFA Score SOFA Score Response (Comments) Value Platelets (x10) > 150 0 Bilirubin (mg/dL) < 1.2 0 [place] Coma Score 15 0 Level of Hypotension No Hypotension 0 Creatinine (mg/dL) < 1.2 0 Total 0 Assessment & Plan Reason critically ill: 56 year old male presents with NSTEMI secondary to LAD occlusion, with cardiac event in ED necessitating cardiac catheterization and PCI. Neuro - CAM ICU negative. - Morphine 2mg IV PRN pain - Continue to monitor for changes in RASS CV - Vitals stable post LAD stent. Telemetry shows short runs of a few seconds of SVT that spontaneously resolve - once yesterday, once overnight * Continue to monitor on telemetry - Meds: Ticagrelor 90mg BID, aspirin 81 mg daily, atorvastatin 80 mg daily, lisinopril 2.5mg daily. Metoprolol held in view of bradycardia. - Diagnostics: * Troponin peaked 13.9 and now trending downwards. * Serial EKGs have shown progressive changes: Sinus bradycardia with sinus arrhythmia. Serial changes of anterior infarct Present. Marked T-wave inversion in inferolateral leads, prolonged QT * Echo shows: Low normal LV systolic function. Hypokinesis of the mid and distal anterior wall and adjacent anteroseptum, and akinesis of the entire apex. No mural thrombus. Ejection fraction = 45-50%. Borderline concentric left ventricular hypertrophy and mild mitral regurgitation. - Plans for elective PCI to the RCA stenosis later today * Continue serial EKGs Resp - Saturating well on room air. GI/Nutrition - Heart healthy diet - GI ppx: pantoprazole Renal/ - Dehydration improved as seen with decreased BUN:Cr ratio. IVF stopped in view of orthopnea and bibasilar crackles - Trend BMP ID - No signs of acute infection Endo - HbA1c 6.1. Continue to monitor glucose - Elevated cholesterol level. Continue high dose statin Heme - Leukocytosis, improved. Trend CBC. VTE Prophylaxis - Currently anticoagulated with Ticagrelor Resident Physician Supervision Note: I was present with Dr. Maricel Alvarez during the history and exam. I discussed the case with the resident and agree with the findings and plan as documented in the note. Any exceptions or clarifications are listed here: Patient with NSTEMI, s/p emergent cath for LAD occlusion with resolution of his symptoms. Awaiting staged catheterization for RCA lesion Continue on Lisinopril, ASA, Brilinta and Lipitor Off beta-homa secondary to bradycardia. EKG evolved, now having T wave inversion in precordial and inferior leads. Asymptomatic Mild basilar crackles. Off IV fluids DVT prophylaxis: Mobilize patient Critical care time spent greater than 25 minutes Documented By: Wallace Ling MD Consults & Procedures Consultants: Cardiology: Dr. Fairbanks / Dr. Alfaro Procedures: 07/17/17: drug-eluting stent insertion into mid LAD Data Medications: Current Inpatient Medications Medications (Trade) Dose Ordered Sig/Florin Route Start Time Stop Time Status Last Admin Dose Admin Atropine Sulfate (Atropine Sulfate 0.1MG/Ml Inj) 0.5 mg ONE PRN IV 07/17/17 05:15 08/16/17 05:14 Ondansetron HCl (Zofran Inj) 4 mg Q6H PRN IV 07/17/17 05:15 08/16/17 05:14 Aspirin (Ecotrin Tab) 81 mg QAM PO 07/17/17 09:00 08/16/17 08:59 07/18/17 07:45 81 MG Metoprolol Tartrate (Lopressor Tab) 12.5 mg Q12 PO 07/17/17 09:00 08/16/17 08:59 Future Hold 07/17/17 08:39 12.5 MG Lisinopril (Zestril Tab) 2.5 mg QAM PO 07/17/17 09:00 08/16/17 08:59 07/18/17 07:45 2.5 MG Lorazepam 0.5 mg/ Syringe 1 ml @ 1 mls/min Q6H PRN IV 07/17/17 05:15 08/16/17 05:14 Atorvastatin Calcium (Lipitor Tab) 80 mg QAM PO 07/17/17 05:15 08/16/17 05:14 Future hold 07/18/17 07:45 80 MG Acetaminophen (Tylenol Tab) 650 mg Q4H PRN PO 07/17/17 05:15 08/16/17 05:14 07/18/17 02:41 650 MG Lorazepam (Ativan Tab) 1 mg Q6H PRN PO 07/17/17 05:15 08/16/17 05:14 07/18/17 04:36 1 MG Lorazepam (Ativan Inj) 1 mg Q6H PRN IV 07/17/17 05:15 08/16/17 05:14 Zolpidem Tartrate (Ambien Tab) 5 mg HSZ PRN PO 07/17/17 05:15 08/16/17 05:14 Nitroglycerin (Nitrostat Tab) 0.4 mg UD PRN SL 07/17/17 05:15 08/16/17 05:14 Al Hydrox/Mg Hydrox/Simethicone (Maalox Max Susp) 15 ml Q4H PRN PO 07/17/17 05:15 08/16/17 05:14 Magnesium Hydroxide (Milk Of Magnesia Susp) 30 ml Q12H PRN PO 07/17/17 05:15 08/16/17 05:14 Pantoprazole Sodium (Protonix Tab) 40 mg DAILY PO 07/17/17 09:00 08/16/17 08:59 07/18/17 07:45 40 MG Morphine Sulfate (MoRPHine SULFATE INJ) 2 mg Q2H PRN IV 07/17/17 05:15 07/31/17 05:14 Ticagrelor (Brilinta Cap) 90 mg BID PO 07/17/17 17:00 08/16/17 16:59 07/18/17 07:46 90 MG Lorazepam (Ativan Inj) 0.5 mg Q6H PRN IV 07/17/17 06:15 08/16/17 06:14 Lorazepam 1 mg/ Syringe 1 ml @ 1 mls/min Q6H PRN IV 07/17/17 06:30 08/16/17 06:29 Insulin Aspart (novoLOG ASPART) SLIDING SCALE If C... ACHS SC 07/17/17 11:00 08/16/17 10:59 Glucose (Glucose 40% Gel) UD PRN PO 07/17/17 07:00 08/16/17 06:59 Glucose (Glucose Chew Tab) 1 tabs UD PRN PO 07/17/17 07:00 08/16/17 06:59 Dextrose (Dextrose 50% 50ML Syringe) 50 ml UD PRN IV 07/17/17 07:00 08/16/17 06:59 Glucagon (Glucagon Inj) 1 mg UD PRN SQ 07/17/17 07:00 08/16/17 06:59 Vital Signs: Date Time Temp Pulse Resp B/P (MAP) Pulse Ox O2 Delivery O2 Flow Rate FiO2 07/18/17 06:00 51 15 114/59 (77) 93 Room Air 07/18/17 04:00 55 15 110/71 (84) 91 Room Air 07/18/17 04:00 Room Air 07/18/17 02:00 51 17 117/63 (81) 96 Nasal Cannula 2.0 07/18/17 00:01 37.0 49 18 110/64 (79) 96 Nasal Cannula 2.0 07/17/17 23:59 Nasal Cannula 2.0 07/17/17 22:00 47 16 107/65 (79) 92 Room Air 07/17/17 20:00 95 Room Air 07/17/17 20:00 36.9 66 16 106/71 (83) 95 Room Air 07/17/17 18:00 45 18 106/60 (75) 94 Room Air 07/17/17 16:00 95 Room Air 07/17/17 16:00 36.7 59 18 110/73 (85) 95 Room Air 07/17/17 14:00 62 18 116/77 (90) 93 Room Air 07/17/17 13:07 55 16 128/82 (97) 96 Room Air 07/17/17 12:01 60 16 129/88 (102) 96 Room Air 07/17/17 12:00 Room Air 07/17/17 11:00 36.8 62 24 137/103 (114) 97 Room Air 07/17/17 10:00 48 13 107/73 (84) 95 Room Air Laboratory Results: Last 24 Hours Test 07/17/17 11:29 07/17/17 13:08 07/17/17 15:28 07/17/17 20:34 Bedside Glucose 99 mg/dl 90 mg/dl 95 mg/dl Total Creatine Kinase 573 U/L Creatine Kinase MB 62.8 ng/ml Creatine Kinase MB Ratio 11.0 Troponin I 13.900 ng/ml Test 07/17/17 21:07 07/18/17 05:24 07/18/17 06:26 Total Creatine Kinase 515 U/L Creatine Kinase MB 43.6 ng/ml Creatine Kinase MB Ratio 8.5 Troponin I 11.100 ng/ml 7.370 ng/ml White Blood Count 9.69 K/uL Red Blood Count 4.75 M/uL Hemoglobin 13.7 g/dL Hematocrit 40.1 % Mean Corpuscular Volume 84.4 fL Mean Corpuscular Hemoglobin 28.8 pg Mean Corpuscular Hemoglobin Concent 34.2 g/dl Platelet Count 234 K/uL Mean Platelet Volume 9.3 fL Neutrophils (%) (Auto) 69.1 % Lymphocytes (%) (Auto) 17.6 % Monocytes (%) (Auto) 10.2 % Eosinophils (%) (Auto) 2.6 % Basophils (%) (Auto) 0.3 % Neutrophils # (Auto) 6.69 K/uL Lymphocytes # (Auto) 1.71 K/uL Monocytes # (Auto) 0.99 K/uL Eosinophils # (Auto) 0.25 K/uL Basophils # (Auto) 0.03 K/uL RDW Standard Deviation 41.4 fL RDW Coefficient of Variation 13.4 % Immature Granulocyte % (Auto) 0.2 % Immature Granulocyte # (Auto) 0.02 K/uL Sodium Level 140 mmol/L Potassium Level 3.9 mmol/L Chloride Level 110 mmol/L Carbon Dioxide Level 26 mmol/L Anion Gap 4.0 mmol/L Blood Urea Nitrogen 14 mg/dl Creatinine 0.78 mg/dl Est Creatinine Clear Calc Drug Dose 124.7 ml/min Estimated GFR () 118.6 Estimated GFR (Non- 102.3 BUN/Creatinine Ratio 17.4 Random Glucose 104 mg/dl Calcium Level 8.2 mg/dl Phosphorus Level 2.3 mg/dl Magnesium Level 2.1 mg/dl Total Bilirubin 0.7 mg/dl Direct Bilirubin 0.1 mg/dl Aspartate Amino Transf (AST/SGOT) 67 U/L Alanine Aminotransferase (ALT/SGPT) 63 U/L Alkaline Phosphatase 58 U/L Total Protein 6.2 gm/dl Albumin 3.2 gm/dl Bedside Glucose 95 mg/dl Resident Tracking Resident Involvement: Resident Care Provided Care Provided: Adult Hospital Medicine
--- NOTE | 2017-07-18 11:28 | Cardiology Follow-Up ---
Subjective Subjective Date of Service: Jul 18, 2017. Pt evaluation today including: conversation w/ patient, conversation w/ family , physical exam, chart review, lab review, review of studies, review of inpatient medication list Additional Details: Feeling well. Mild brief episodes of dyspnea with lying flat. No chest pain. No wrist pain. No events on telemetry. Problem List Medical Problems: (1) Acute coronary syndrome Status: Acute Review of Systems Constitutional: No fever Respiratory: No cough, No shortness of breath, No dyspnea on exertion Cardiac: No chest pain, No orthopnea Abdomen: No pain Objective Vital Signs Last Vital Signs Documentation Date Time Temp Pulse Resp B/P (MAP) Pulse Ox O2 Delivery O2 Flow Rate FiO2 07/18/17 10:00 68 12 126/80 (95) 96 Room Air 07/18/17 08:00 36.7 07/18/17 02:00 2.0 Physical Exam: General Appearance: no apparent distress ENT: pharynx normal Neck: no JVD Respiratory/Chest: lungs clear, no respiratory distress, no accessory muscle use Cardiovascular: regular rate, rhythm, no gallop, no murmur Abdomen: normal bowel sounds, non tender, soft Extremities: no pedal edema Neurologic/Psychiatric: alert, oriented x 3 Skin: + pertinent finding (right wrist - radial artery no ecchymosis, hematoma. Intact distal pulses. ) Assessment and Plan 1. ACS/NSTEMI/Occluded mid LAD -- s/p PCI with EZ 2. Residual severe RCA disease 3. 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 Intermittent orthopnea 5. Sinus bradycardia Patient doing well this AM. Chest pain free, hemodynamically stable. Troponin peaked, only mild LV dysfunction. No access site complications. Plan for repeat PCI to mid RCA later today via right radial artery. Keep NPO Continue ASA/Ticagrelor Continue LISSETH, add back beta-homa as HR allows. On statin Continued [facility] stay due to: multiple IV medications needed Discharge planning: home Medications: 07/18/17 05:24 Red Blood Count 4.75, Mean Corpuscular Volume 84.4, Mean Corpuscular Hemoglobin 28.8, Mean Corpuscular Hemoglobin Concent 34.2, Mean Platelet Volume 9.3, Neutrophils (%) (Auto) 69.1, Lymphocytes (%) (Auto) 17.6, Monocytes (%) (Auto) 10.2, Eosinophils (%) (Auto) 2.6, Basophils (%) (Auto) 0.3, Neutrophils # (Auto ) 6.69, Lymphocytes # (Auto) 1.71, Monocytes # (Auto) 0.99, Eosinophils # (Auto ) 0.25, Basophils # (Auto) 0.03 07/18/17 05:24 Test 07/17/17 21:07 07/18/17 05:24 07/18/17 06:26 Total Creatine Kinase 515 U/L (39-308) Creatine Kinase MB 43.6 ng/ml (0.5-3.6) Creatine Kinase MB Ratio 8.5 (0-3.0) White Blood Count 9.69 K/uL (4.8-10.8) Red Blood Count 4.75 M/uL (4.7-6.1) Hemoglobin 13.7 g/dL (14.0-18.0) Hematocrit 40.1 % (42-52) Mean Corpuscular Volume 84.4 fL (80-100) Mean Corpuscular Hemoglobin 28.8 pg (25-34) Mean Corpuscular Hemoglobin Concent 34.2 g/dl (32-36) Platelet Count 234 K/uL (130-400) Mean Platelet Volume 9.3 fL (7.4-10.4) Neutrophils (%) (Auto) 69.1 % Lymphocytes (%) (Auto) 17.6 % Monocytes (%) (Auto) 10.2 % Eosinophils (%) (Auto) 2.6 % Basophils (%) (Auto) 0.3 % Neutrophils # (Auto) 6.69 K/uL (1.4-6.5) Lymphocytes # (Auto) 1.71 K/uL (1.2-3.4) Monocytes # (Auto) 0.99 K/uL (0.11-0.59) Eosinophils # (Auto) 0.25 K/uL (0-0.5) Basophils # (Auto) 0.03 K/uL (0-0.2) RDW Standard Deviation 41.4 fL (36.4-46.3) RDW Coefficient of Variation 13.4 % (11.5-14.5) Immature Granulocyte % (Auto) 0.2 % Immature Granulocyte # (Auto) 0.02 K/uL (0.00-0.02) Anion Gap 4.0 mmol/L (3-11) Est Creatinine Clear Calc Drug Dose 124.7 ml/min Estimated GFR () 118.6 Estimated GFR (Non- 102.3 BUN/Creatinine Ratio 17.4 (10-20) Calcium Level 8.2 mg/dl (8.5-10.1) Phosphorus Level 2.3 mg/dl (2.5-4.9) Magnesium Level 2.1 mg/dl (1.8-2.4) Total Bilirubin 0.7 mg/dl (0.2-1) Direct Bilirubin 0.1 mg/dl (0-0.2) Aspartate Amino Transf (AST/SGOT) 67 U/L (15-37) Alanine Aminotransferase (ALT/SGPT) 63 U/L (12-78) Alkaline Phosphatase 58 U/L (45-117) Troponin I 7.370 ng/ml (0-0.045) Total Protein 6.2 gm/dl (6.4-8.2) Albumin 3.2 gm/dl (3.4-5.0) Bedside Glucose 95 mg/dl (70-99) Lab Results: Current Inpatient Medications Medications (Trade) Dose Ordered Sig/Florin Route Start Time Stop Time Status Last Admin Dose Admin Atropine Sulfate (Atropine Sulfate 0.1MG/Ml Inj) 0.5 mg ONE PRN IV 07/17/17 05:15 08/16/17 05:14 Ondansetron HCl (Zofran Inj) 4 mg Q6H PRN IV 07/17/17 05:15 08/16/17 05:14 Aspirin (Ecotrin Tab) 81 mg QAM PO 07/17/17 09:00 08/16/17 08:59 07/18/17 07:45 81 MG Metoprolol Tartrate (Lopressor Tab) 12.5 mg Q12 PO 07/17/17 09:00 08/16/17 08:59 Future Hold 07/17/17 08:39 12.5 MG Lisinopril (Zestril Tab) 2.5 mg QAM PO 07/17/17 09:00 08/16/17 08:59 07/18/17 07:45 2.5 MG Lorazepam 0.5 mg/ Syringe 1 ml @ 1 mls/min Q6H PRN IV 07/17/17 05:15 08/16/17 05:14 Atorvastatin Calcium (Lipitor Tab) 80 mg QAM PO 07/17/17 05:15 08/16/17 05:14 Future hold 07/18/17 07:45 80 MG Acetaminophen (Tylenol Tab) 650 mg Q4H PRN PO 07/17/17 05:15 08/16/17 05:14 07/18/17 02:41 650 MG Lorazepam (Ativan Tab) 1 mg Q6H PRN PO 07/17/17 05:15 08/16/17 05:14 07/18/17 04:36 1 MG Lorazepam (Ativan Inj) 1 mg Q6H PRN IV 07/17/17 05:15 08/16/17 05:14 Zolpidem Tartrate (Ambien Tab) 5 mg HSZ PRN PO 07/17/17 05:15 08/16/17 05:14 Nitroglycerin (Nitrostat Tab) 0.4 mg UD PRN SL 07/17/17 05:15 08/16/17 05:14 Al Hydrox/Mg Hydrox/Simethicone (Maalox Max Susp) 15 ml Q4H PRN PO 07/17/17 05:15 08/16/17 05:14 Magnesium Hydroxide (Milk Of Magnesia Susp) 30 ml Q12H PRN PO 07/17/17 05:15 08/16/17 05:14 Pantoprazole Sodium (Protonix Tab) 40 mg DAILY PO 07/17/17 09:00 08/16/17 08:59 07/18/17 07:45 40 MG Morphine Sulfate (MoRPHine SULFATE INJ) 2 mg Q2H PRN IV 07/17/17 05:15 07/31/17 05:14 Ticagrelor (Brilinta Cap) 90 mg BID PO 07/17/17 17:00 08/16/17 16:59 07/18/17 07:46 90 MG Lorazepam (Ativan Inj) 0.5 mg Q6H PRN IV 07/17/17 06:15 08/16/17 06:14 Lorazepam 1 mg/ Syringe 1 ml @ 1 mls/min Q6H PRN IV 07/17/17 06:30 08/16/17 06:29 Insulin Aspart (novoLOG ASPART) SLIDING SCALE If C... ACHS SC 07/17/17 11:00 08/16/17 10:59 Glucose (Glucose 40% Gel) UD PRN PO 07/17/17 07:00 08/16/17 06:59 Glucose (Glucose Chew Tab) 1 tabs UD PRN PO 07/17/17 07:00 08/16/17 06:59 Dextrose (Dextrose 50% 50ML Syringe) 50 ml UD PRN IV 07/17/17 07:00 08/16/17 06:59 Glucagon (Glucagon Inj) 1 mg UD PRN SQ 07/17/17 07:00 08/16/17 06:59 Potassium/ Phosphorus/Sodium (Phospha 250 Neutral [phone] Mg) 1 tab QID PO 07/18/17 13:00 08/17/17 12:59
[2017-07-18] MEDS: POT PHOSPHATE MONOBASIC W/ SOD TAB PO SCH ×3 (13:46→20:35)
[2017-07-18] MEDS ORDERED: HEPARIN SOD (PORCINE) 1000 UNIT/ML 10 ML VIAL ONE (16:15)
[2017-07-18] MEDS ORDERED: NiCARDipine HCL INJ 2.5 MG/ML 10 ML AMP ONE (16:15)
[2017-07-18] MEDS ORDERED: NITROGLYCERIN/D5W 100MCG/ML 20ML SYR ONE (16:16)
[2017-07-18] MEDS ORDERED: FENTANYL CITRATE INJ 50 MCG/1 ML 2 ML VIAL ONE ×2 (16:16→17:25)
[2017-07-18] MEDS ORDERED: MIDAZOLAM HCL 1 MG/ML 2ML VIAL ONE (16:16)
--- NOTE | 2017-07-18 18:01 | Procedure Note ---
Pre-Mod Sedation Assessment General Date of Moderate Sedation: Jul 18, 2017. Vital Signs: Vital Signs Past 12 Hours Date Time Temp Pulse Resp B/P (MAP) Pulse Ox O2 Delivery O2 Flow Rate FiO2 07/18/17 17:40 65 16 135/69 (91) 95 07/18/17 16:00 36.8 78 18 130/79 (96) Room Air 07/18/17 16:00 Room Air 07/18/17 14:00 61 18 115/80 (92) 93 Room Air 07/18/17 12:31 36.8 65 16 119/76 95 Room Air 07/18/17 12:00 Room Air 07/18/17 12:00 36.8 58 24 119/76 (90) 95 Room Air 07/18/17 10:00 68 12 126/80 (95) 96 Room Air 07/18/17 08:00 93 Room Air 07/18/17 08:00 36.7 66 14 128/87 (101) 95 Room Air 07/18/17 08:00 Room Air Review Cardiovascular: regular rate, rhythm, no edema, no JVD, no murmur, normal peripheral pulses Abdomen: non tender, soft, no organomegaly Lungs: lungs clear Pre-Sedation Airway Assessment Oral Cavity: WNL Able to Visualize Vocal Cords: No Short Thick Neck: No Hx of Sleep Apnea: No Smoking Status: Never Smoker Mallampati Classification: Class III ASA Classification: Class III Procedure Planning Contraindications-for Mod Sed: None Yes Notes The planned sedation has been discussed with the patient and consent obtained. I have identified the patient, determined the appropriateness of sedation and have assessed the patient immediately prior to the procedure. All medicine(s) and interventions are by my order.
--- NOTE | 2017-07-18 18:01 | Procedure Note ---
Post-Mod Sedation Assessment General Date of Moderate Sedation Jul 18, 2017. Vital Signs: Vital Signs Past 12 Hours Date Time Temp Pulse Resp B/P (MAP) Pulse Ox O2 Delivery O2 Flow Rate FiO2 07/18/17 17:40 65 16 135/69 (91) 95 07/18/17 16:00 36.8 78 18 130/79 (96) Room Air 07/18/17 16:00 Room Air 07/18/17 14:00 61 18 115/80 (92) 93 Room Air 07/18/17 12:31 36.8 65 16 119/76 95 Room Air 07/18/17 12:00 Room Air 07/18/17 12:00 36.8 58 24 119/76 (90) 95 Room Air 07/18/17 10:00 68 12 126/80 (95) 96 Room Air 07/18/17 08:00 93 Room Air 07/18/17 08:00 36.7 66 14 128/87 (101) 95 Room Air 07/18/17 08:00 Room Air Review - Discharge Criteria Vital Signs Stable: Yes Alert/Oriented/Conversant: Yes Returned to Baseline Mental St: Yes Nausea Absent/Minimal: Yes Pain/Discomfort/Absent/Minimal: Yes Normal/Baseline Respirations: Yes Active Bleeding?: No Pt Received D/C Instructions: N/A Prescriptions Given: None Specific Proced. D/C Criteria Distal Pulses Present (Cardiac: Yes Groin site assessed-Card Cath: N/A Voided Prior To Discharge: N/A Discharged Patients Adult Escort/Transportation: N/A
--- NOTE | 2017-07-18 18:14 | Cardiac Catheterization ---
Procedure Note Procedure Date Jul 18, 2017. Pre-Procedure Diagnosis Angina AUC Score 7 Post-Procedure Diagnosis Severe CAD, Successful PCI Procedure(s) Performed Coronary Angiography, Drug Eluting Stent Gizzard Skin Remover Dominic Renal Case Manager(s) Chepe Estimated Blood Loss 10 Medication(s) Fentanyl, Heparin, Nicardipine, Versed, Lidocaine 1% Summary of Findings Indication: Staged PCI of RCA following PCI for occluded LAD Access: 6Fr Right Radial Artery Catheters: JR4 guide Findings: RCA - 80% early-mid segment focal, eccentric stenosis -- PCI -- Antithrombotic therapy: Heparin, on Ticagrelor Procedure: RCA cannulated with JR4 guide BMW wire passed across lesion into distal vessel Mid RCA lesion predilated with 2.5 compliant balloon Dilated lesion stented with 3.5 x 15 Xience EZ Stent post-dilated with 4.0 noncompliant balloon IC vasodilators administered for spasm Questionable haziness noted in distal aspect of stent. IVUS used to asses for pathology -- no edge dissections, no intrastent thrombus noted. Stent underexpanded distally. Post-dilated with 4.5 NC balloon. Post procedure CHAPINCITO 3 flow, stent well expanded with minimal residual stenosis and no apparent cardiac complications. Arterial Closure: TR Band Summary: 1. Successful PCI of early-mid RCA with one drug-eluting stent (3.5 x 15 Xience , post-dilated to 4.5) Recommendations: Return to ICU/PCU for continued monitoring Continue dual-antiplatelet therapy with ASA/Ticagrelor for 1 year Continue statin, beta-homa, LISSETH Cardiac Rehab as an outpatient If stable overnight possible discharge tomorrow. Hemodynamics Rest Ao: 108/70 (89) Final Ao: 104/67 (86) LV: -- Recommendations Medical therapy and/or Counseling Specimens None Radiation Exposure (mGy) 2388 Contrast (mls) 100 Visi Fluids (cc crystalloids) 100 NS Drains None Anesthesia Moderate Procedural Complication(s) None Disposition PCU ACC Data Cardiac Status Clinical evaluation leading to the procedure CAD Presntation: Non STEMI Anginal Classification: CCS IV Heart Failure: No, NYHA Class: CCS I Cardiogenic Shock w/in 24Hrs: No Cardiac Arrest w/in 24Hrs: No Imaging studies past 6 months: Yes Stress studies past 6 months: No Closure Device Percutaneous Entry Location: Radial Closure Device: Radial Band Recommendations: PCI without planned CABG PCI Indication: Staged PCI Lesion Segment Name: Mid RCA Culprit Artery: Yes Stenosis Prior to Rx (%): 80 Chronic Total Occlusion: No IVUS: Yes FFR: No Pre-Procedure CHAPINCITO Flow: 3 Previously Treated Lesion: No Lesion Complexity: Non-High/Non-C Lesion Length (mm): 12 Thrombus Present: No Bifurcation Lesion: No Guidewire Across Lesion: Yes Guidewire: Stenosis Post-Procedure (%): 0 Post-Procedure CHAPINCITO Flow: 3 Device(s) Deployed: Yes Intraprocedure Events Significant Dissection: No Perforation: No
[2017-07-18] MEDS ORDERED: SODIUM CHLORIDE 0.9% 1000ML 1,000 ML IV SCH ×2 (18:15→23:45)
--- NOTE | 2017-07-18 20:16 | Progress Note ---
Subjective Date of Service: Jul 18, 2017. Subjective Pt evaluation today including: conversation w/ patient, conversation w/ family ( at bedside), physical exam, chart review, lab review, conversation w/ exchange underwriting consultant (cardiology) Pain: none PO Intake: normal Voiding: no voiding problems tele - NSVT last evening, about 10 beats c/o mild intermittent dyspnea at rest but no orthopnea no chest pain I saw him post-cath today and he was resting comfortably Problem List Medical Problems: (1) Acute coronary syndrome Status: Acute Review of Systems Constitutional: No fever Respiratory: + see HPI, + dyspnea at rest, No cough Cardiac: No chest pain, No orthopnea, No PND, No edema Abdomen: No pain Objective Vital Signs Date Time Temp Pulse Resp B/P (MAP) Pulse Ox O2 Delivery O2 Flow Rate FiO2 07/18/17 19:00 67 14 130/91 (104) 94 Room Air 07/18/17 18:30 65 15 126/75 (92) 95 Room Air 07/18/17 18:15 58 17 117/76 (90) 94 Room Air 07/18/17 18:04 62 18 117/78 (91) 94 Room Air 07/18/17 17:40 65 16 135/69 (91) 95 07/18/17 16:00 36.8 78 18 130/79 (96) Room Air 07/18/17 16:00 Room Air 07/18/17 14:00 61 18 115/80 (92) 93 Room Air 07/18/17 12:31 36.8 65 16 119/76 95 Room Air 07/18/17 12:00 Room Air 07/18/17 12:00 36.8 58 24 119/76 (90) 95 Room Air 07/18/17 10:00 68 12 126/80 (95) 96 Room Air 07/18/17 08:00 93 Room Air 07/18/17 08:00 36.7 66 14 128/87 (101) 95 Room Air 07/18/17 08:00 Room Air 07/18/17 06:00 51 15 114/59 (77) 93 Room Air 07/18/17 04:00 55 15 110/71 (84) 91 Room Air 07/18/17 04:00 Room Air 07/18/17 02:00 51 17 117/63 (81) 96 Nasal Cannula 2.0 07/18/17 00:01 37.0 49 18 110/64 (79) 96 Nasal Cannula 2.0 07/17/17 23:59 Nasal Cannula 2.0 07/17/17 22:00 47 16 107/65 (79) 92 Room Air Physical Exam General Appearance: no apparent distress ENT: pharynx normal Neck: no JVD Respiratory/Chest: no respiratory distress, no accessory muscle use, + rales ( fine bibasilar rales) Cardiovascular: regular rate, rhythm, no gallop, no murmur Abdomen: normal bowel sounds, non tender, soft, no organomegaly Extremities: no pedal edema, + pertinent finding (right radial artery region clean, no hematoma ) Laboratory Results Last 24 Hours Test 07/17/17 20:34 07/17/17 21:07 07/18/17 05:24 07/18/17 06:26 Bedside Glucose 95 mg/dl 95 mg/dl Total Creatine Kinase 515 U/L Creatine Kinase MB 43.6 ng/ml Creatine Kinase MB Ratio 8.5 Troponin I 11.100 ng/ml 7.370 ng/ml White Blood Count 9.69 K/uL Red Blood Count 4.75 M/uL Hemoglobin 13.7 g/dL Hematocrit 40.1 % Mean Corpuscular Volume 84.4 fL Mean Corpuscular Hemoglobin 28.8 pg Mean Corpuscular Hemoglobin Concent 34.2 g/dl Platelet Count 234 K/uL Mean Platelet Volume 9.3 fL Neutrophils (%) (Auto) 69.1 % Lymphocytes (%) (Auto) 17.6 % Monocytes (%) (Auto) 10.2 % Eosinophils (%) (Auto) 2.6 % Basophils (%) (Auto) 0.3 % Neutrophils # (Auto) 6.69 K/uL Lymphocytes # (Auto) 1.71 K/uL Monocytes # (Auto) 0.99 K/uL Eosinophils # (Auto) 0.25 K/uL Basophils # (Auto) 0.03 K/uL RDW Standard Deviation 41.4 fL RDW Coefficient of Variation 13.4 % Immature Granulocyte % (Auto) 0.2 % Immature Granulocyte # (Auto) 0.02 K/uL Sodium Level 140 mmol/L Potassium Level 3.9 mmol/L Chloride Level 110 mmol/L Carbon Dioxide Level 26 mmol/L Anion Gap 4.0 mmol/L Blood Urea Nitrogen 14 mg/dl Creatinine 0.78 mg/dl Est Creatinine Clear Calc Drug Dose 124.7 ml/min Estimated GFR () 118.6 Estimated GFR (Non- 102.3 BUN/Creatinine Ratio 17.4 Random Glucose 104 mg/dl Calcium Level 8.2 mg/dl Phosphorus Level 2.3 mg/dl Magnesium Level 2.1 mg/dl Total Bilirubin 0.7 mg/dl Direct Bilirubin 0.1 mg/dl Aspartate Amino Transf (AST/SGOT) 67 U/L Alanine Aminotransferase (ALT/SGPT) 63 U/L Alkaline Phosphatase 58 U/L Total Protein 6.2 gm/dl Albumin 3.2 gm/dl Test 07/18/17 11:16 07/18/17 17:10 07/18/17 18:07 Bedside Glucose 86 mg/dl 84 mg/dl Kaolin Activated Coagulation Time 279 SECONDS Assessment and Plan 56yo male with: 1. NSTEMI 2nd to 100% occluded LAD - s/p PTCA with drug-eluting stent by Dr. Fairbanks. Cont asa, brilinta, statin, BB, LISSETH. He also had an 80% occluded RCA - s/p DUS today by Dr. Alfaro. Continue telemetry. Aggressive risk factor modification including Rx of pre-T2DM, lipids, etc. 2. hyperlipidemia - high intensity statin. 3. pre-T2DM - a1c 6.1% c/w such. Rental Representative consult for nutritional counseling appreciated. 4. mild acute systolic CHF - early decompensation with mild dyspnea and developing rales? Follow exam, O2 sats carefully this evening; low threshold for lasix. 5. mild acute kidney injury - also likely 2nd to #1 above. Resolved. 6. DVT proph - if he stays beyond tomorrow then add lovenox once daily. 7. hypophosphatemia - kphos neutral 1 tab QID. updated. Continued [facility] stay due to: multiple IV medications needed Discharge planning: home
[2017-07-18] MEDS ORDERED: NURSING VERBAL MED ORDER ONE (23:00)
[2017-07-19] VITALS (20 sets, daily range): BP systolic 101–137; BP diastolic 62–80; PULSE 49–73; TEMP 36.5–37; O2SAT 94–97
[2017-07-19] MEDS: ACETAMINOPHEN 325 MG TAB PO PRN (02:46)
[2017-07-19 05:20] LABS: BASO % 0.3 %; BASO ABS # 0.03 K/uL (0-0.2); COMPLETE YES; EOS % 3.2 %; HEMATOCRIT 39.7 % (42-52); IG% 0.3 %; LYMPH % 16.7 %; LYMPH ABS # 1.58 K/uL (1.2-3.4); MEAN CELL VOLUME 84.8 fL (80-100); MEAN CORPUSCULAR HEMOGLOBIN 29.7 pg (25-34); MEAN PLATELET VOLUME 9.3 fL (7.4-10.4); MONO % 10.3 %; NEUT % 69.2 %; PLATELET COUNT 235 K/uL (130-400); RED BLOOD COUNT 4.68 M/uL (4.7-6.1); WHITE BLOOD COUNT 9.48 K/uL (4.8-10.8)
[2017-07-19 05:48] LABS: BUN/CREATININE RATIO 14.9 (10-20); CALCIUM 8.7 mg/dl (8.5-10.1); CREATININE 0.84 mg/dl (0.60-1.40); POTASSIUM 3.9 mmol/L (3.5-5.1)
[2017-07-19] MEDS: INSULIN ASPART 100 UNITS/ML 3 ML PEN SC SCH ×2 (06:45→12:14)
--- NOTE | 2017-07-19 08:25 | DIAGNOSTIC IMAGING REPORT ---
SINGLE VIEW CHEST CLINICAL HISTORY: Hypoxia. FINDINGS: An AP, portable, upright chest radiograph is compared to study dated 07/17/2017. The examination is degraded by portable technique and patient rotation. The heart is mildly enlarged. The pulmonary vasculature is noncongested. There are low lung volumes with bibasilar atelectasis. No airspace consolidation, large pleural effusion, or pneumothorax is seen. The bony thorax is grossly intact. IMPRESSION: Mild cardiac enlargement with no acute cardiopulmonary abnormality. Electronically signed by: Jian Valdez M.D. 07/19/2017 8:24 AM Dictated Date/Time: 07/19/2017 8:21 AM
[2017-07-19] MEDS: LISINOPRIL 2.5 MG TAB PO SCH (08:46)
[2017-07-19] MEDS: ATORVASTATIN 40 MG TAB PO SCH (08:46)
[2017-07-19] MEDS: PANTOprazole SOD 40 MG TAB PO SCH (08:46)
[2017-07-19] MEDS: POT PHOSPHATE MONOBASIC W/ SOD TAB PO SCH ×4 (08:46→20:18)
[2017-07-19] MEDS: TICAGRELOR 90 MG TAB PO SCH ×2 (08:46→20:18)
[2017-07-19] MEDS: ASPIRIN 81 MG ECTAB PO SCH (08:46)
--- NOTE | 2017-07-19 10:11 | Critical Care Progress Note ---
Critical Care Progress Note Date of Service Jul 19, 2017. ICU Day ICU Day Number: [address] Ling Subjective Patient well, denies acute issues currently. Does say he woke up a few times overnight with shortness of breath and was given O2 via nasal cannula. He also states that he has intermittent flutters, but nursing staff state that no arrhythmia was seen on telemetry overnight. Patient's symptoms resolve spontaneously. He continues to deny chest pain, nausea, diaphoresis, abdominal pain, pleurisy. He has ambulated around the room, without recurrence of symptoms on mild exertion. He is voiding and have bowel movements without issue. He is tolerating diet.. Objective GENERAL: alert, well appearing, sitting out of bed, no acute distress, non- toxic. Nasal cannula in situ. HEAD: Normocephalic, atraumatic. EYES: PERRL, EOMI, normal sclera and conjunctiva OROPHARYNX: No exudate, no erythema. No perioral cyanosis. Lips, buccal mucosa, and tongue normal and mucous membranes are dry NECK: Supple, no adenopathy, non-tender. No carotid bruits appreciated. LUNGS: Clear to auscultation. Normal chest wall mechanics, good air entry. Some course breath sounds, no wheezes HEART: RRR, S1 and S2 normal, no murmurs appreciated. No reproducible tenderness on palpation of the chest wall. ABDOMEN: Soft, non-tender, normo-active bowel sounds, no masses, no rebound or guarding. BACK: Back is symmetrical on inspection, no deformities, no midline tenderness, no CVA tenderness. SKIN: Warm, pink, dry. No erythema, rashes, or bruising. EXTREMITIES: Grossly normal. Moving all 4 limbs, strength 5/5. No pitting edema. Compression band on right wrist, no obvious bleeding or hematoma. Calves non tender. NEURO: Alert, Ox3. No focal deficits. Normal sensorium, cranial nerves II-XII grossly intact, normal speech. PSYCH: Mood and affect appropriate. Current SOFA Score SOFA Score Response (Comments) Value Platelets (x10) > 150 0 Bilirubin (mg/dL) < 1.2 0 [place] Coma Score 15 0 Level of Hypotension No Hypotension 0 Creatinine (mg/dL) < 1.2 0 Total 0 Assessment & Plan Reason critically ill: 56 year old male presents with NSTEMI secondary to complete LAD and significant RCA occlusion, with cardiac event in ED necessitating emergent cardiac catheterization and PCI on successive days. Neuro - CAM ICU negative. - Morphine 2mg IV PRN pain - Continue to monitor for changes in RASS CV - Vitals stable post LAD and RCA stent. No further CP. - Meds: Ticagrelor 90mg BID, aspirin 81 mg daily, atorvastatin 80 mg daily, lisinopril 2.5mg daily. Metoprolol held in view of bradycardia. - Serial EKGs have shown progressive changes: Sinus bradycardia, serial changes of anterior infarct, marked T-wave inversion in anterolateral leads, prolonged QT - Echo shows: Low normal LV systolic function. Hypokinesis of mid and distal anterior wall and adjacent anteroseptum, and akinesis of the entire apex. No mural thrombus. Ejection fraction = 45-50%. Borderline concentric LV hypertrophy and mild mitral regurgitation. - Patient describes some paroxysmal nocturnal dyspnea, BNP elevated 1429 and CXR shows some cephalization but no overt pulmonary congestion. Hold Lasix for now in view of double dye load, and adequate urine output. Reassess volume status tomorrow. Resp - Saturating well on 2L of oxygen via nasal cannula - No exacerbation of dyspnea on ambulation test, sats maintained >96% GI/Nutrition - Heart healthy diet - GI ppx: pantoprazole Renal/ - Dehydration improved as seen with decreased BUN:Cr ratio - Trend BMP ID - No signs of acute infection Endo - HbA1c 6.1. Continue to monitor glucose - Elevated cholesterol level. Continue high dose statin Heme - Leukocytosis normalized. Trend CBC. VTE Prophylaxis - Currently anticoagulated with Ticagrelor Resident Physician Supervision Note: I was present with Dr. Maricel Alvarez during the history and exam. I discussed the case with the resident and agree with the findings and plan as documented in the note. Any exceptions or clarifications are listed here: Patient with NSTEMI, s/p emergent cath for LAD occlusion with resolution of his symptoms on 07/17 S/p staged catheterization for RCA lesion on 07/18 Patient complained of mild breathing difficulty over night and was also noted to have mild hypoxia, corrected with O2. Breathing better upright. Ambulated in the hallway well without any desaturation. Continue on Lisinopril, ASA, Brilinta and Lipitor. Holding beta-homa secondary to bradycardia. Mild basilar crackles. D/c IV fluids. Consider diuretics DVT prophylaxis: Mobilize patient Critical care time spent greater than 25 minutes May be transferred to telemetry. Will sign off from a critical care standpoint Documented By: Wallace Ling MD Consults & Procedures Consultants: Cardiology: Dr. Fairbanks / Dr. Alfaro Procedures: 07/17/17: drug-eluting stent insertion into mid LAD 07/18/17: drug-eluting stent insertion into mid RCA Data Medications: Current Inpatient Medications Medications (Trade) Dose Ordered Sig/Florin Route Start Time Stop Time Status Last Admin Dose Admin Atropine Sulfate (Atropine Sulfate 0.1MG/Ml Inj) 0.5 mg ONE PRN IV 07/17/17 05:15 08/16/17 05:14 Ondansetron HCl (Zofran Inj) 4 mg Q6H PRN IV 07/17/17 05:15 08/16/17 05:14 07/18/17 19:32 4 MG Aspirin (Ecotrin Tab) 81 mg QAM PO 07/17/17 09:00 08/16/17 08:59 07/19/17 08:46 81 MG Metoprolol Tartrate (Lopressor Tab) 12.5 mg Q12 PO 07/17/17 09:00 08/16/17 08:59 Future Hold 07/17/17 08:39 12.5 MG Lisinopril (Zestril Tab) 2.5 mg QAM PO 07/17/17 09:00 08/16/17 08:59 07/19/17 08:46 2.5 MG Lorazepam 0.5 mg/ Syringe 1 ml @ 1 mls/min Q6H PRN IV 07/17/17 05:15 08/16/17 05:14 Atorvastatin Calcium (Lipitor Tab) 80 mg QAM PO 07/17/17 05:15 08/16/17 05:14 Future hold 07/19/17 08:46 80 MG Acetaminophen (Tylenol Tab) 650 mg Q4H PRN PO 07/17/17 05:15 08/16/17 05:14 07/19/17 02:46 650 MG Lorazepam (Ativan Tab) 1 mg Q6H PRN PO 07/17/17 05:15 08/16/17 05:14 07/18/17 04:36 1 MG Lorazepam (Ativan Inj) 1 mg Q6H PRN IV 07/17/17 05:15 08/16/17 05:14 Zolpidem Tartrate (Ambien Tab) 5 mg HSZ PRN PO 07/17/17 05:15 08/16/17 05:14 Nitroglycerin (Nitrostat Tab) 0.4 mg UD PRN SL 07/17/17 05:15 08/16/17 05:14 Al Hydrox/Mg Hydrox/Simethicone (Maalox Max Susp) 15 ml Q4H PRN PO 07/17/17 05:15 08/16/17 05:14 Magnesium Hydroxide (Milk Of Magnesia Susp) 30 ml Q12H PRN PO 07/17/17 05:15 08/16/17 05:14 Pantoprazole Sodium (Protonix Tab) 40 mg DAILY PO 07/17/17 09:00 08/16/17 08:59 07/19/17 08:46 40 MG Morphine Sulfate (MoRPHine SULFATE INJ) 2 mg Q2H PRN IV 07/17/17 05:15 07/31/17 05:14 Ticagrelor (Brilinta Cap) 90 mg BID PO 07/17/17 17:00 08/16/17 16:59 07/19/17 08:46 90 MG Lorazepam (Ativan Inj) 0.5 mg Q6H PRN IV 07/17/17 06:15 08/16/17 06:14 Lorazepam 1 mg/ Syringe 1 ml @ 1 mls/min Q6H PRN IV 07/17/17 06:30 08/16/17 06:29 Insulin Aspart (novoLOG ASPART) SLIDING SCALE If C... ACHS SC 07/17/17 11:00 08/16/17 10:59 Glucose (Glucose 40% Gel) UD PRN PO 07/17/17 07:00 08/16/17 06:59 Glucose (Glucose Chew Tab) 1 tabs UD PRN PO 07/17/17 07:00 08/16/17 06:59 Dextrose (Dextrose 50% 50ML Syringe) 50 ml UD PRN IV 07/17/17 07:00 08/16/17 06:59 Glucagon (Glucagon Inj) 1 mg UD PRN SQ 07/17/17 07:00 08/16/17 06:59 Potassium/ Phosphorus/Sodium (Phospha 250 Neutral 155-852-130 Mg) 1 tab QID PO 07/18/17 13:00 08/17/17 12:59 07/19/17 08:46 1 TAB Sodium Chloride 1,000 ml @ 50 mls/hr Q20H IV 07/18/17 23:45 07/19/17 19:44 07/18/17 00:00 50 MLS/HR Vital Signs: Date Time Temp Pulse Resp B/P (MAP) Pulse Ox O2 Delivery O2 Flow Rate FiO2 07/19/17 08:41 120/71 (87) 07/19/17 08:00 36.9 62 15 95 Room Air 07/19/17 08:00 94 Room Air 07/19/17 07:00 52 17 94 07/19/17 06:00 53 14 120/80 (93) 97 Nasal Cannula 2.0 07/19/17 04:00 36.6 58 18 120/62 (81) 96 Nasal Cannula 2.0 07/19/17 04:00 96 Nasal Cannula 2.0 07/19/17 02:00 58 13 115/76 (89) 97 Nasal Cannula 2.0 07/19/17 01:00 50 17 122/71 (88) 97 Nasal Cannula 2.0 07/19/17 00:01 36.6 54 16 110/71 (84) 97 Nasal Cannula 2.0 07/18/17 23:59 97 Nasal Cannula 2.0 07/18/17 23:00 54 17 123/71 (88) 95 Nasal Cannula 2.0 07/18/17 22:00 56 18 103/67 (79) 92 Room Air 07/18/17 20:30 63 16 124/79 (94) 94 Room Air 07/18/17 20:00 97 Room Air 07/18/17 20:00 36.9 69 14 122/93 (103) 97 Room Air 07/18/17 19:00 67 14 130/91 (104) 94 Room Air 07/18/17 18:30 65 15 126/75 (92) 95 Room Air 07/18/17 18:15 58 17 117/76 (90) 94 Room Air 07/18/17 18:04 62 18 117/78 (91) 94 Room Air 07/18/17 17:40 65 16 135/69 (91) 95 07/18/17 16:00 36.8 78 18 130/79 (96) Room Air 07/18/17 16:00 Room Air 07/18/17 14:00 61 18 115/80 (92) 93 Room Air 07/18/17 12:31 36.8 65 16 119/76 95 Room Air 07/18/17 12:00 Room Air 07/18/17 12:00 36.8 58 24 119/76 (90) 95 Room Air Laboratory Results: Last 24 Hours Test 07/18/17 11:16 07/18/17 17:10 07/18/17 18:07 07/18/17 20:39 Bedside Glucose 86 mg/dl 84 mg/dl 137 mg/dl Kaolin Activated Coagulation Time 279 SECONDS Test 07/19/17 04:56 White Blood Count 9.48 K/uL Red Blood Count 4.68 M/uL Hemoglobin 13.9 g/dL Hematocrit 39.7 % Mean Corpuscular Volume 84.8 fL Mean Corpuscular Hemoglobin 29.7 pg Mean Corpuscular Hemoglobin Concent 35.0 g/dl Platelet Count 235 K/uL Mean Platelet Volume 9.3 fL Neutrophils (%) (Auto) 69.2 % Lymphocytes (%) (Auto) 16.7 % Monocytes (%) (Auto) 10.3 % Eosinophils (%) (Auto) 3.2 % Basophils (%) (Auto) 0.3 % Neutrophils # (Auto) 6.56 K/uL Lymphocytes # (Auto) 1.58 K/uL Monocytes # (Auto) 0.98 K/uL Eosinophils # (Auto) 0.30 K/uL Basophils # (Auto) 0.03 K/uL RDW Standard Deviation 40.5 fL RDW Coefficient of Variation 13.3 % Immature Granulocyte % (Auto) 0.3 % Immature Granulocyte # (Auto) 0.03 K/uL Sodium Level 140 mmol/L Potassium Level 3.9 mmol/L Chloride Level 109 mmol/L Carbon Dioxide Level 27 mmol/L Anion Gap 4.0 mmol/L Blood Urea Nitrogen 13 mg/dl Creatinine 0.84 mg/dl Est Creatinine Clear Calc Drug Dose 115.8 ml/min Estimated GFR () 115.0 Estimated GFR (Non- 99.3 BUN/Creatinine Ratio 14.9 Random Glucose 96 mg/dl Calcium Level 8.7 mg/dl Pro-B-Type Natriuretic Peptide 1449 pg/ml Resident Tracking Resident Involvement: Resident Care Provided Care Provided: Adult [facility]
[2017-07-19] MEDS ORDERED: FUROSEMIDE INJ 20 MG in SYRINGE 0 ML IV ONE (16:00)
--- NOTE | 2017-07-19 17:39 | Cardiology Follow-Up ---
Subjective Subjective Date of Service: Jul 19, 2017. Pt evaluation today including: conversation w/ patient, conversation w/ family , physical exam, chart review, lab review, review of studies, conversation w/ java developer consultant, review of inpatient medication list Additional Details: No recurrent chest pain. Brief episodes of shortness of breath while lying flat last night. Mild hypoxia. BNP elevated this AM. Minimal access site discomfort Tele reviewed -- no events. Problem List Medical Problems: (1) Acute coronary syndrome Status: Acute Review of Systems Constitutional: No fever Respiratory: + see HPI, + dyspnea at rest, No cough Cardiac: No chest pain, No orthopnea, No PND, No edema Abdomen: No pain Objective Vital Signs Last Vital Signs Documentation Date Time Temp Pulse Resp B/P (MAP) Pulse Ox O2 Delivery O2 Flow Rate FiO2 07/19/17 16:00 94 Room Air 07/19/17 15:09 36.8 58 11 128/77 (94) 07/19/17 10:25 2.0 Physical Exam: General Appearance: no apparent distress ENT: pharynx normal Neck: no JVD Respiratory/Chest: no respiratory distress, no accessory muscle use, + rales ( fine bibasilar rales) Cardiovascular: regular rate, rhythm, no gallop, no murmur Abdomen: normal bowel sounds, non tender, soft, no organomegaly Extremities: no pedal edema, + pertinent finding (right radial artery no hematoma, ecchymosis. intact distal pulses) Neurologic/Psychiatric: alert, oriented x 3 Assessment and Plan 1. ACS/NSTEMI/Occluded mid LAD -- s/p PCI with EZ 2. Residual severe RCA disease -- s/p PCI to proximal RCA with EZ 3. 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 Intermittent orthopnea 5. Sinus bradycardia Patient remains chest pain free. Suspect brief episodes of orthopnea related to excess fluids. Plan for gentle diuresis No access site complications. Lasix 20mg IVx1 today Continue ASA/Ticagrelor Continue LISSETH, low dose beta-homa, high-intensity statin Can transfer to telemetry today. Likely discharge tomorrow AM with follow-up with Dr. Fairbanks in 2-3 weeks. Continued [facility] stay due to: multiple IV medications needed Discharge planning: home Medications: Current Inpatient Medications Medications (Trade) Dose Ordered Sig/Florin Route Start Time Stop Time Status Last Admin Dose Admin Atropine Sulfate (Atropine Sulfate 0.1MG/Ml Inj) 0.5 mg ONE PRN IV 07/17/17 05:15 08/16/17 05:14 Ondansetron HCl (Zofran Inj) 4 mg Q6H PRN IV 07/17/17 05:15 08/16/17 05:14 07/18/17 19:32 4 MG Aspirin (Ecotrin Tab) 81 mg QAM PO 07/17/17 09:00 08/16/17 08:59 07/19/17 08:46 81 MG Metoprolol Tartrate (Lopressor Tab) 12.5 mg Q12 PO 07/17/17 09:00 08/16/17 08:59 Future Hold 07/17/17 08:39 12.5 MG Lisinopril (Zestril Tab) 2.5 mg QAM PO 07/17/17 09:00 08/16/17 08:59 07/19/17 08:46 2.5 MG Atorvastatin Calcium (Lipitor Tab) 80 mg QAM PO 07/17/17 05:15 08/16/17 05:14 Future hold 07/19/17 08:46 80 MG Acetaminophen (Tylenol Tab) 650 mg Q4H PRN PO 07/17/17 05:15 08/16/17 05:14 07/19/17 02:46 650 MG Lorazepam (Ativan Tab) 1 mg Q6H PRN PO 07/17/17 05:15 08/16/17 05:14 07/18/17 04:36 1 MG Lorazepam (Ativan Inj) 1 mg Q6H PRN IV 07/17/17 05:15 08/16/17 05:14 Zolpidem Tartrate (Ambien Tab) 5 mg HSZ PRN PO 07/17/17 05:15 08/16/17 05:14 Nitroglycerin (Nitrostat Tab) 0.4 mg UD PRN SL 07/17/17 05:15 08/16/17 05:14 Al Hydrox/Mg Hydrox/Simethicone (Maalox Max Susp) 15 ml Q4H PRN PO 07/17/17 05:15 08/16/17 05:14 Magnesium Hydroxide (Milk Of Magnesia Susp) 30 ml Q12H PRN PO 07/17/17 05:15 08/16/17 05:14 Pantoprazole Sodium (Protonix Tab) 40 mg DAILY PO 07/17/17 09:00 08/16/17 08:59 07/19/17 08:46 40 MG Morphine Sulfate (MoRPHine SULFATE INJ) 2 mg Q2H PRN IV 07/17/17 05:15 07/31/17 05:14 Ticagrelor (Brilinta Cap) 90 mg BID PO 07/17/17 17:00 08/16/17 16:59 07/19/17 08:46 90 MG Lorazepam (Ativan Inj) 0.5 mg Q6H PRN IV 07/17/17 06:15 08/16/17 06:14 Potassium/ Phosphorus/Sodium (Phospha 250 Neutral 155-852-130 Mg) 1 tab QID PO 07/18/17 13:00 08/17/17 12:59 07/19/17 12:16 1 TAB Lab Results: 07/19/17 04:56 Red Blood Count 4.68, Mean Corpuscular Volume 84.8, Mean Corpuscular Hemoglobin 29.7, Mean Corpuscular Hemoglobin Concent 35.0, Mean Platelet Volume 9.3, Neutrophils (%) (Auto) 69.2, Lymphocytes (%) (Auto) 16.7, Monocytes (%) (Auto) 10.3, Eosinophils (%) (Auto) 3.2, Basophils (%) (Auto) 0.3, Neutrophils # (Auto ) 6.56, Lymphocytes # (Auto) 1.58, Monocytes # (Auto) 0.98, Eosinophils # (Auto ) 0.30, Basophils # (Auto) 0.03 07/19/17 04:56 Test 07/19/17 04:56 07/19/17 11:30 White Blood Count 9.48 K/uL (4.8-10.8) Red Blood Count 4.68 M/uL (4.7-6.1) Hemoglobin 13.9 g/dL (14.0-18.0) Hematocrit 39.7 % (42-52) Mean Corpuscular Volume 84.8 fL (80-100) Mean Corpuscular Hemoglobin 29.7 pg (25-34) Mean Corpuscular Hemoglobin Concent 35.0 g/dl (32-36) Platelet Count 235 K/uL (130-400) Mean Platelet Volume 9.3 fL (7.4-10.4) Neutrophils (%) (Auto) 69.2 % Lymphocytes (%) (Auto) 16.7 % Monocytes (%) (Auto) 10.3 % Eosinophils (%) (Auto) 3.2 % Basophils (%) (Auto) 0.3 % Neutrophils # (Auto) 6.56 K/uL (1.4-6.5) Lymphocytes # (Auto) 1.58 K/uL (1.2-3.4) Monocytes # (Auto) 0.98 K/uL (0.11-0.59) Eosinophils # (Auto) 0.30 K/uL (0-0.5) Basophils # (Auto) 0.03 K/uL (0-0.2) RDW Standard Deviation 40.5 fL (36.4-46.3) RDW Coefficient of Variation 13.3 % (11.5-14.5) Immature Granulocyte % (Auto) 0.3 % Immature Granulocyte # (Auto) 0.03 K/uL (0.00-0.02) Anion Gap 4.0 mmol/L (3-11) Est Creatinine Clear Calc Drug Dose 115.8 ml/min Estimated GFR () 115.0 Estimated GFR (Non- 99.3 BUN/Creatinine Ratio 14.9 (10-20) Calcium Level 8.7 mg/dl (8.5-10.1) Pro-B-Type Natriuretic Peptide 1449 pg/ml (0-900) Bedside Glucose 88 mg/dl (70-99)
--- NOTE | 2017-07-19 21:22 | Progress Note ---
Subjective Date of Service: Jul 19, 2017. Subjective Pt evaluation today including: conversation w/ patient, conversation w/ family ( at bedside), physical exam, chart review, lab review, review of studies ( cxr), conversation w/ sap enterprise portal consultant (cardiology, ICU), review of inpatient medication list Pain: no chest pain, L arm pain, jaw pain PO Intake: normal Voiding: no voiding problems tele stable overnight with no dysrhythmia overnight had desaturation into the 80s, improving to 90s with supplemental O2 he had several episodes of PND overnight and this am no VALDEZ however he otherwise feels very good Problem List Medical Problems: (1) Acute coronary syndrome Status: Acute Review of Systems Constitutional: No fever Respiratory: + see HPI, + shortness of breath, No cough, No sputum, No wheezing Cardiac: + orthopnea, + PND, No chest pain, No edema, No palpitations Abdomen: No pain Objective Vital Signs Date Time Temp Pulse Resp B/P (MAP) Pulse Ox O2 Delivery O2 Flow Rate FiO2 07/19/17 20:00 Room Air 07/19/17 18:57 37.0 61 20 137/80 (99) 97 Room Air 07/19/17 18:02 73 15 108/75 (86) 95 07/19/17 16:04 58 14 115/71 (86) 07/19/17 16:00 94 Room Air 07/19/17 15:09 36.8 58 11 128/77 (94) Room Air 07/19/17 14:15 65 17 111/72 (85) 96 Room Air 07/19/17 14:00 61 14 95 07/19/17 13:00 66 19 07/19/17 12:00 94 Room Air 07/19/17 12:00 65 16 07/19/17 11:32 36.8 61 14 126/75 (92) Room Air 07/19/17 10:25 49 16 101/63 (76) 96 Nasal Cannula 2.0 07/19/17 10:25 49 17 96 07/19/17 08:41 120/71 (87) 07/19/17 08:00 62 15 95 07/19/17 08:00 36.9 62 15 95 Room Air 07/19/17 08:00 Room Air 07/19/17 08:00 94 Room Air 07/19/17 07:00 52 17 94 07/19/17 06:00 53 14 120/80 (93) 97 Nasal Cannula 2.0 07/19/17 04:00 36.6 58 18 120/62 (81) 96 Nasal Cannula 2.0 07/19/17 04:00 96 Nasal Cannula 2.0 07/19/17 02:00 58 13 115/76 (89) 97 Nasal Cannula 2.0 07/19/17 01:00 50 17 122/71 (88) 97 Nasal Cannula 2.0 07/19/17 00:01 36.6 54 16 110/71 (84) 97 Nasal Cannula 2.0 07/18/17 23:59 97 Nasal Cannula 2.0 07/18/17 23:00 54 17 123/71 (88) 95 Nasal Cannula 2.0 07/18/17 22:00 56 18 103/67 (79) 92 Room Air Physical Exam General Appearance: no apparent distress ENT: pharynx normal Neck: no JVD Respiratory/Chest: no respiratory distress, no accessory muscle use, + rales ( mild, bibasilar) Cardiovascular: regular rate, rhythm, no gallop, no murmur Abdomen: normal bowel sounds, non tender, soft, no organomegaly Extremities: no pedal edema Neurologic/Psychiatric: alert, oriented x 3 Laboratory Results Last 24 Hours Test 07/19/17 04:56 07/19/17 11:30 07/19/17 16:01 White Blood Count 9.48 K/uL Red Blood Count 4.68 M/uL Hemoglobin 13.9 g/dL Hematocrit 39.7 % Mean Corpuscular Volume 84.8 fL Mean Corpuscular Hemoglobin 29.7 pg Mean Corpuscular Hemoglobin Concent 35.0 g/dl Platelet Count 235 K/uL Mean Platelet Volume 9.3 fL Neutrophils (%) (Auto) 69.2 % Lymphocytes (%) (Auto) 16.7 % Monocytes (%) (Auto) 10.3 % Eosinophils (%) (Auto) 3.2 % Basophils (%) (Auto) 0.3 % Neutrophils # (Auto) 6.56 K/uL Lymphocytes # (Auto) 1.58 K/uL Monocytes # (Auto) 0.98 K/uL Eosinophils # (Auto) 0.30 K/uL Basophils # (Auto) 0.03 K/uL RDW Standard Deviation 40.5 fL RDW Coefficient of Variation 13.3 % Immature Granulocyte % (Auto) 0.3 % Immature Granulocyte # (Auto) 0.03 K/uL Sodium Level 140 mmol/L Potassium Level 3.9 mmol/L Chloride Level 109 mmol/L Carbon Dioxide Level 27 mmol/L Anion Gap 4.0 mmol/L Blood Urea Nitrogen 13 mg/dl Creatinine 0.84 mg/dl Est Creatinine Clear Calc Drug Dose 115.8 ml/min Estimated GFR () 115.0 Estimated GFR (Non- 99.3 BUN/Creatinine Ratio 14.9 Random Glucose 96 mg/dl Calcium Level 8.7 mg/dl Pro-B-Type Natriuretic Peptide 1449 pg/ml Bedside Glucose 88 mg/dl 95 mg/dl Assessment and Plan 56yo male with: 1. NSTEMI 2nd to 100% occluded LAD - s/p PTCA with drug-eluting stent by Dr. Fairbanks. Continues on asa, brilinta, statin, BB, LISSETH. He also had an 80% occluded RCA - s/p DUS by Dr. Alfaro yesterday. Continue telemetry. Aggressive risk factor modification including Rx of pre-T2DM, lipids, etc. 2. hyperlipidemia - high intensity statin. 3. pre-T2DM - a1c 6.1% c/w such. Knowledge Engineer consult for nutritional counseling appreciated. 4. mild acute systolic CHF - 2nd to #1 above. I agree with Dr. Alfaro and Dr. Ling that he likely has mild decompensation. Agree with IV lasix and d/c of IVF. BMP/mag in am. 5. mild acute kidney injury - also likely 2nd to #1 above. Resolved. 6. DVT proph - SCDs, early ambulation 7. hypophosphatemia - kphos neutral 1 tab QID. updated once again Tx to tele floor today Continued [facility] stay due to: multiple IV medications needed Discharge planning: home
[2017-07-20 02:35] VITALS: BP 111/69; PULSE 57; TEMP 36.6; O2SAT 96
[2017-07-20 08:00] VITALS: BP 142/85; PULSE 71; TEMP 37.1; O2SAT 94
[2017-07-20] MEDS: ASPIRIN 81 MG ECTAB PO SCH (08:13)
[2017-07-20] MEDS: ATORVASTATIN 40 MG TAB PO SCH (08:13)
[2017-07-20] MEDS: PANTOprazole SOD 40 MG TAB PO SCH (08:14)
[2017-07-20] MEDS: LISINOPRIL 2.5 MG TAB PO SCH (08:15)
[2017-07-20] MEDS: POT PHOSPHATE MONOBASIC W/ SOD TAB PO SCH (08:16)
[2017-07-20] MEDS: TICAGRELOR 90 MG TAB PO SCH (08:17)
[2017-07-20] MEDS ORDERED: BRL90 PO (11:54)
[2017-07-20] MEDS ORDERED: ASPEC81 PO (11:54)
[2017-07-20] MEDS ORDERED: NTRSLP4 SL (11:54)
[2017-07-20] MEDS ORDERED: LSN25 PO (11:54)
[2017-07-20] MEDS ORDERED: LPR25 PO (11:54)
[2017-07-20] MEDS ORDERED: LPT40 PO (11:54)
--- NOTE | 2017-07-20 12:11 | Discharge Instructions ---
Discharge Instructions Date of Service Jul 20, 2017. Admission Reason for Admission: 1. CAD s/p Non ST elevation Myocardial Infarction. 2. S/P LAD Drug eluting stent deployment 07/17/2017. 3. S/P RCA Drug eluting stent early mid RCA. 4. Ischemic Cardiomyopathy, LVEF 45% to 50%. 5. Dyslipidemia. Discharge Discharge Diagnosis / Problem: CAD s/p NSTEMI. Discharge Goals Goal(s): Improve function, Improve disease control, Learn about illness, Diagnostic testing, Therapeutic intervention, Prevent Disease Progression Activity Recommendations Activity Limitations: as noted below (Gradually progress activities, as tolerated. ) Lifting Limitations: none Exercise/Sports Limitations: as tolerated May Resume Sexual Activity: when tolerated Shower/Bathe: no limitations Driving or Machine Use: no limitations . Instructions / Follow-Up Instructions / Follow-Up 1. Remain on all medications as prescribed. 2. Maintain a low fat, low cholesterol Heart Healthy Diet. 3. Stay on Aspirin 81 mg daily indefinitely -- do not miss any doses. 4. Take Brilinta 90 mg twice a day for a minimum of 1 year. Do not miss any doses. Current Hospital Diet Patient's current hospital diet: AHA Diet (Heart Healthy) Discharge Diet Recommended Diet: AHA Diet (Heart Healthy), Diabetes Type 2 Diet Fluid Restriction: None Procedures Procedures Performed: Cardiac Catheterization with staged intervention: 1. Xience 3.0 x 33 mm EZ deployed in Mid LAD 07/17/17 2. Xience 3.5 x 15 mm EZ deployed in early Mid RCA 07/18/17. 3. Right radial artterial access x 2. 4. Echocardiogram. Pending Studies Studies pending at discharge: no Laboratory Results Hemoglobin A1c Test 07/17/17 05:54 Range/Units Estimated Average Glucose 128 mg/dl Hemoglobin A1c 6.1 H 4.5-5.6 % Lipid Panel Test 07/17/17 05:54 Range/Units Triglycerides Level 47 0-150 mg/dl Cholesterol Level 231 H 0-200 mg/dl HDL Cholesterol 54 mg/dl LDL Cholesterol Direct 154 mg/dl Cholesterol/HDL Ratio 4.3 LDL Cholesterol, Calculated mg/dl Work Instructions Return To Work: after follow-up Lifting Limitations: none Medical Emergencies . Who to Call and When: Medical Emergencies: If at any time you feel your situation is an emergency, please call 911 immediately. . Non-Emergent Contact Non-Emergency issues call your: Primary Care Provider, Strategic Partnership Specialist Contact Number: Cardiology # [phone]. Call Non-Emergent contact if: you have a fever, you have any medication questions . Past History Medical & Surgical History: (1) Non-STEMI (non-ST elevated myocardial infarction) (2) CAD (coronary artery disease) (3) Acute coronary syndrome . "Provider Documentation" section prepared by Vu Mendoza. . VTE Core Measure Inpt VTE Proph given/why not?: Other Anticoagulation (antiplatelet, Integrilin infusion)
[2017-07-20 12:17] VITALS: BP 142/85; PULSE 71; TEMP 37.1; O2SAT 94
[2017-07-20] MEDS ORDERED: ATROPINE SULFATE 0.1 MG/ML 10 ML SYR IV ONE (12:54)
[2017-07-20] MEDS ORDERED: DOPamine 400MG / 250ML D5W IV ONE (12:54)
--- NOTE | 2017-07-21 17:54 | DISCHARGE SUMMARY ---
ADMITTING DIAGNOSES: 1. CAD s/p NSTEMI 07/16/2017. 2. 100% Mid LAD stenosis status post Xience 3.0 x 33 mm drug eluting stent, deployed in mid left anterior descending 07/17/2017. 3. 80% Early mid RCA stenosis, status post Xience 3.5 x 15 mm drug eluting stent deployment 07/18/2017. 4. Mild Ischemic Cardiomyopathy with left ventricular ejection fraction of 45-50%. SECONDARY DIAGNOSES: 1. Dyslipidemia 2. Impaired glucose tolerance. HOSPITAL COURSE: Mr. Vaca is a 56-year-old white male without significant prior cardiac history, who presented acutely to [facility] Emergency Room in the mobile home park manager hours of 07/17/2017, complaining of bilateral upper chest pressure with associated diaphoresis and nausea. The patient had noticed some exertionally precipitated chest discomfort, leading up to this admission, but on the evening before admission he developed rest symptoms. In the Emergency Room, he was noted to have no significant ST or T-wave abnormalities. However, while being examined he developed profound hypertension, diaphoresis, and severe bradycardia. It was reported that he may have had a sinus pause versus possible complete heart block. He was given IV fluids, dopamine and atropine. His rhythm returned to normal sinus rhythm. Initial troponin I was elevated at 0.2-0 ng/mL. A heart alert was called and patient was taken emergently to the cardiac cath laboratory. The patient was noted to have 100% mid LAD stenosis, for which he underwent deployment of a drug eluting stent. He was also noted to have residual 80% early mid RCA stenosis, so he underwent deployment of a drug eluting stent in the early mid RCA on 07/18/2017. Procedure was uncomplicated. The patient was noted to have a post WA LVEF of 45-50% with anterior wall hypokinesis. The patient was maintained on dual antiplatelet therapy, beta blockers, high intensity statin therapy, and monitored on telemetry following his WA. He did have a few episodes of orthopnea post procedurally, but these have resolved completely. The patient has been ambulating in the hallways, and has not had any chest pain, heaviness, tightness or pressure. No angina pectoris. He does not notice any shortness of breath, dyspnea on exertion or any PND. No palpitations, syncope or near syncope. His heart rhythm remained stable on hris developer as well. At the time of discharge, he is completely asymptomatic. PHYSICAL EXAMINATION: VITAL SIGNS: Temperature is 37.1 degrees Celsius, pulse is 70 and regular, respiratory rate is 14 and unlabored, blood pressure is 124/82 right arm sitting, SpO2 is 94% on room air. HEENT: Head is atraumatic, normocephalic. EOMs intact. Sclerae are anicteric. Facies symmetric. No perioral cyanosis. NECK: Without thyromegaly, adenopathy or JVD. CHEST AND LUNGS: Clear to auscultation throughout all lung joyce, no wheezes, rales or rhonchi. CARDIOVASCULAR: S1 and S2 are regular without murmur, gallop, or rub. PMI is nondisplaced. No lifts, heaves, or thrills. No abdominal, aortic or renal bruits. ABDOMEN: Bowel sounds present. No masses, organomegaly, or tenderness. EXTREMITIES: Without clubbing, cyanosis, or edema. Radial arterial access site is closed. An area of resolving ecchymosis is noted on the distal ventral forearm. No hematomas. Distal capillary refill within normal limits. NEUROLOGIC: The patient is awake, alert and oriented. Pleasant and cooperative. Answers questions appropriately. Speech is clear. Normal movement in all 4 extremities. Gait pattern unremarkable. PROCEDURES: 1. Echocardiogram. 2. Heart alert, urgent cardiac catheterization 07/17/2017 with a drug eluting stent deployed in the mid LAD. 3. Repeat cardiac catheterization 07/18/2017 with deployment of a drug eluting stent in the early mid RCA. 4. Serial EKGs. 5. Serial cardiac enzymes (peak troponin I 13.900). 6. Telemetry monitoring. DISCHARGE MEDICATIONS: 1. Aspirin 81 mg daily. 2. Lipitor 80 mg each evening. 3. Lisinopril 2.5 mg daily. 4. Lopressor 25 mg 1/2 tablet b.i.d. 5. Sublingual nitroglycerin 0.4 mg as directed. 6. Brilinta 90 mg twice daily for a minimum of 1 year without interruption. FOLLOWUP INSTRUCTIONS: 1. The patient will be scheduled for followup with Dr. Alfaro or myself within the next week in our office. 2. The patient is to call with any problems, questions or change in clinical status in the interim. 3. He will also follow up with his PCP. Attending Attestation: I agree with the simental components of this discharge summary by ELMER Mendoza. Jalen NAVA
== END 2017-07-20 12:55 | disposition home or self-care (01) | DRG 246 ==
LOC: C.EDB 01:23 → ENRESERV 04:15 → C.MSICU 05:25 → ENRESERV 07-19 18:31 → C.2T 07-19 18:53
PROVIDERS: ADMIT Internal Medicine Cardiovascular Disease; ATTEND Internal Medicine
PROC: 027034Z Dilation of Coronary Artery, One Artery with Drug-eluting Intraluminal Device, Percutaneous Approach (ICD-10-PCS; principal; 2017-07-18 16:36)
DX: I21.4 Non-ST elevation (NSTEMI) myocardial infarction (principal); I50.21 Acute systolic (congestive) heart failure; N17.9 Acute kidney failure, unspecified

== ENCOUNTER → 2017-08-16 | Outpatient (CLI) | payer BC ==
[~2017-08-16] MED LIST: ASPEC81 PO; BRL90 PO; LPR25 PO; LPT40 PO; LSN25 PO; NTRSLP4 SL
[2017-08-16 12:00] LABS: ESTIMATED AVERAGE GLUCOSE 128 mg/dl; HA1C FLAG Normal (Normal)
[2017-08-16 12:23] LABS: CHOLESTEROL/HDL RATIO 2.2; FERRITIN 176.7 ng/ml (8.0-388.0)
== END | disposition home or self-care (01) ==
LOC: C.LAB1850 10:29
PROVIDERS: ATTEND Physician Assistant
DX: I24.9 Acute ischemic heart disease, unspecified (principal); I25.10 Atherosclerotic heart disease of native coronary artery without angina pectoris; E78.5 Hyperlipidemia, unspecified

== ENCOUNTER 2019-01-13 04:47 | Observation (INO) ==
[2019-01-13] MEDS ORDERED: ASPIRIN CHEW 324 MG PO STA (05:21)
[2019-01-13] MEDS ORDERED: NITROGLYCERIN 2% OINTMENT 30GM TUBE EXT STA (05:21)
[2019-01-13] MEDS ORDERED: ASPIRIN 81 MG CHEW ONE (05:26)
[2019-01-13 06:13] LABS: Basophils # (auto) 0.03 K/uL (0-0.2); Basophils % (auto) 0.3 %; Eosinophils # (auto) 0.15 K/uL (0-0.5); Eosinophils % (auto) 1.5 %; Hematocrit (blood only) 44.3 % (42-52); Immature Granulocytes # (auto) 0.03 K/uL (0.00-0.02); Immature Granulocytes % (auto) 0.3 %; Lymphocytes # (auto) 1.84 K/uL (1.2-3.4); Lymphocytes % (auto) 18.1 %; Mean Corpuscular Hgb Conc 33.9 g/dL (32-36); Mean Corpuscular Volume 86.2 fL (80-100); Mean Platelet Volume 9.6 fL (7.4-10.4); Monocytes # (auto) 0.89 K/uL (0.11-0.59); Monocytes % (auto) 8.8 %; Neutrophils # (auto) 7.23 K/uL (1.4-6.5); Platelet Count 285 K/uL (130-400); RDW Coefficient of Variation 13.6 % (11.5-14.5); RDW Standard Deviation 42.7 fL (36.4-46.3); Red Blood Count 5.14 M/uL (4.7-6.1); White Blood Count 10.17 K/uL (4.8-10.8)
[2019-01-13 06:25] LABS: Alanine Aminotransferase 99 U/L (12-78); Albumin Level 4.3 gm/dl (3.4-5.0); Blood Urea Nitrogen 21 mg/dl (7-18); Creatinine Clr Calc Pharmacy 89.3 ml/min; Est GFR (African American) 97.1; Est GFR (Non-African American) 83.8; Glucose 125 mg/dl (70-99)
[2019-01-13 06:33] LABS: Albumin Globulin Ratio 1.2 (0.9-2); Alkaline Phosphatase 61 U/L (45-117); Bilirubin,Total 0.4 mg/dl (0.2-1); Carbon Dioxide 24 mmol/L (21-32); Chloride 108 mmol/L (98-107); Globulin 3.7 gm/dl (2.5-4.0); Potassium 4.6 mmol/L (3.5-5.1); Sodium 140 mmol/L (136-145); Troponin I < 0.015 ng/ml (0-0.045)
[2019-01-13 06:35] LABS: Aspartate Aminotransferase 42 U/L (15-37)
--- NOTE | 2019-01-13 07:02 | Emergency Department Note ---
Entered by Johnathan Brantley acting as a scribe for Tatiana Bailey MD History of Present Illness General Chief complaint: Chest Pain Stated complaint: CHEST PAIN Source: patient Mode of arrival: ambulatory Limitations: no limitations History of Present Illness Onset (ago): hour(s) (Seven and a half) Location: chest Pain Consistency: + other (Waxing and waning) Current Pain Intensity: 3 Relieved By: + other (Nitro) Exacerbated By: + other (Lying down and deep breaths) Associated symptoms: + diaphoresis and + other (Lightheaded and dizziness) The patient is a 58 year old male who presents to the ED with his due to complaints of waxing and waning chest pain that began seven and a half hours ago while sitting on his couch. Patient states the pain is located left of the center of his chest and he describes the severity of the pain as a 3/10. Patient states the pain does not radiate to his arm or jaw but is worsened with lying down and deep breaths. Patient states that following the onset of his pain he took two nitro with mild relief of his pain but notes that it never did fully resolve. Patient states five hours ago he was also diaphoretic with lightheadedness and dizziness. He states the diaphoretic episode lasted for about a minute and that he felt better after it resolved. Patients past medical history includes a heart attack in 2017 and pericarditis. He states following the heart attack he had two cardiac stents placed. Patient states his chest pain for his heart attack was much worse than his current pain in the ER. Patients river guide is Dr. Alfaro who he last saw in June. Patient adds that he takes a baby aspirin daily. Patient denies any recent sicknesses. Home Medications Home Medications Medication Instructions Recorded Confirmed Type ascorbic acid (vitamin C) [Vitamin 1 g PO DAILY 01/13/19 01/13/19 History C] aspirin 81 mg PO DAILY 01/13/19 01/13/19 History cholecalciferol (vitamin D3) 6,000 unit PO DAILY 01/13/19 01/13/19 History [Vitamin D3] hazim-wy-0-utr-axa-ohjhvfd-ast 2 cap PO DAILY 01/13/19 01/13/19 History [krill oil] magnesium W-cguseu-gkhwjfyxlby 1 dose PO DAILY 01/13/19 01/13/19 History nitroglycerin [Nitrostat] 0.5 mg SUBLINGUAL UD PRN 01/13/19 01/13/19 History omega 0-qml-ktv-fish oil [Fish Oil] 2 cap PO DAILY 01/13/19 01/13/19 History fbwqtdeho-R89-HMV30-AO-bknfbfxhzpp 1 dose PO DAILY 01/13/19 01/13/19 History vitamin K2 40 mcg PO DAILY 01/13/19 01/13/19 History atorvastatin 80 mg PO QAM 30 Days #60 tab 01/14/19 Rx ibuprofen 200 mg PO Q6H PRN 5 Days #20 tab 01/14/19 Rx Allergies Allergy/AdvReac Type Severity Reaction Status Date / Time No Known Allergies Allergy Verified 07/17/17 02:00 Past Med/Surg History Medical History History of pericarditis Pre-diabetes Vitamin D deficiency History of non-ST elevation myocardial infarction (NSTEMI) 06/2017 s/p PCI with EZ x [address] Alfaro CAD (coronary artery disease) HLD (hyperlipidemia) Heart attack (Resolved) History of coronary artery disease (Resolved) Pericarditis (Resolved) Family history of premature CAD Surgical History History of percutaneous coronary intervention Status post AC joint reconstruction History of arthroscopic knee surgery History of hernia repair Family History Other Family history of premature CAD Social History marital status: Current Living Situation: Spouse Other Information That Helps Us Care for You: No Feels Safe at Home: Yes Smoking Status: Never smoker Hx Alcohol Use: Yes Alcohol type: beer and wine Alcohol Intake Frequency: a few times a month Hx Substance Use: No Beliefs That Will Affect Care: None Preferred Language: [place] Review of Systems See HPI for pertinent positives & negatives. and A total of 10 systems reviewed and were otherwise negative Physical Exam Vital Signs Vital Signs - 24 hr 01/13/19 16:00 01/13/19 18:42 01/13/19 19:47 Temperature 36.7 C 37.1 C Temperature Source Oral Oral Pulse Rate Pulse Rate [Apical] 58 L 62 Pulse Rate [Finger] 64 Pulse Rhythm [Apical] Regular Regular Pulse Rhythm [Finger] Pulse Strength [Apical] Normal Normal Pulse Strength [Finger] Respiratory Rate 16 18 19 Respiratory Effort / Characteristics Non-Labored Spontaneous Non-Labored Spontaneous Respiratory Depth Normal Normal Respiratory Pattern Regular Blood Pressure [Right Arm] 122/86 137/90 121/77 Blood Pressure Mean [Right Arm] 98 105 91 Blood Pressure Position [Right Arm] Lying Lying Lying Pulse Oximetry 97 97 95 Oxygen Delivery Method Room Air Room Air Room Air 01/13/19 22:20 01/14/19 00:00 01/14/19 00:56 Temperature 37.0 C Temperature Source Oral Pulse Rate 50 L Pulse Rate [Apical] Pulse Rate [Finger] 60 40 L Pulse Rhythm [Apical] Pulse Rhythm [Finger] Regular Pulse Strength [Apical] Pulse Strength [Finger] Normal Respiratory Rate 17 Respiratory Effort / Characteristics Respiratory Depth Normal Respiratory Pattern Blood Pressure [Right Arm] 121/74 Blood Pressure Mean [Right Arm] 89 Blood Pressure Position [Right Arm] Lying Pulse Oximetry 96 Oxygen Delivery Method Room Air 01/14/19 04:00 01/14/19 08:33 01/14/19 11:48 Temperature 37.0 C 36.9 C 36.8 C Temperature Source Oral Oral Oral Pulse Rate Pulse Rate [Apical] Pulse Rate [Finger] 57 L 82 80 Pulse Rhythm [Apical] Pulse Rhythm [Finger] Pulse Strength [Apical] Pulse Strength [Finger] Respiratory Rate 17 18 16 Respiratory Effort / Characteristics Respiratory Depth Normal Respiratory Pattern Blood Pressure [Right Arm] 139/95 137/91 127/81 Blood Pressure Mean [Right Arm] 109 106 96 Blood Pressure Position [Right Arm] Lying Pulse Oximetry 96 96 99 Oxygen Delivery Method Room Air 01/14/19 14:49 Temperature 36.8 C Temperature Source Pulse Rate Pulse Rate [Apical] 62 Pulse Rate [Finger] 80 Pulse Rhythm [Apical] Pulse Rhythm [Finger] Pulse Strength [Apical] Pulse Strength [Finger] Respiratory Rate 16 Respiratory Effort / Characteristics Respiratory Depth Respiratory Pattern Blood Pressure [Right Arm] 127/81 Blood Pressure Mean [Right Arm] Blood Pressure Position [Right Arm] Pulse Oximetry 99 Oxygen Delivery Method Vital signs reviewed. General: Well-appearing male, in no significant distress. HEENT: No scleral icterus, PERRLA, neck supple. Atraumatic. Cardiovascular: Regular rate and rhythm, no extra sounds. Pulmonary: Clear to auscultation bilaterally, normal work of breathing. Abdomen: Soft, nontender, nondistended, positive bowel sounds. Musculoskeletal: Atraumatic, no peripheral edema. Neurologic: Patient awake alert and oriented x 3, full strength in all 4 extremities. Cranial nerves 2 through 12 grossly intact. Skin: Warm, dry, no rash Course 0518: Past medical records reviewed. The patient was evaluated in room A11, and a complete history and physical examination were performed. 0655: Upon reevaluation, the patient will be further evaluated. I updated the patient on his findings and treatment plan. Patient is agreeable to the treatment plan. Patient will be assessed for further evaluation. Consultations Consultation #1: I reviewed the patient's case with Dr. Macario. He will evaluate the patient for further management. Time: 06:53 Administered Medications Acetaminophen (Tylenol) 650 mg PO Q4H PRN PRN Reason: Pain or Fever Stop: 02/12/19 08:48 Last Admin: 01/13/19 20:42 Dose: 650 mg Admin: 01/13/19 10:16 Dose: 650 mg Ascorbic Acid (Vitamin C) 1,000 mg PO DAILY KALPESH Stop: 02/12/19 08:59 Last Admin: 01/14/19 08:19 Dose: 1,000 mg Admin: 01/13/19 10:48 Dose: Not Given Aspirin (Ecotrin Ectab) 81 mg PO DAILY KALPESH Stop: 02/12/19 08:59 Last Admin: 01/14/19 08:18 Dose: 81 mg Admin: 01/13/19 10:47 Dose: Not Given Vitamin D (Vitamin D3) 6,000 units PO DAILY KALPESH Stop: 02/12/19 08:59 Last Admin: 01/14/19 08:17 Dose: 6,000 units Admin: 01/13/19 10:48 Dose: Not Given Discontinued Medications Aspirin (Aspirin) 243 mg PO NOW STA Stop: 01/13/19 05:22 Last Admin: 01/13/19 05:32 Dose: Not Given Aspirin (Aspirin Chew) Confirm Administered Dose 243 mg .ROUTE .STK-MED ONE Stop: 01/13/19 05:27 Last Admin: 01/13/19 05:32 Dose: 324 mg Colchicine (Colcrys) 0.6 mg PO BID KALPESH Stop: 02/12/19 11:44 Last Admin: 01/14/19 08:16 Dose: 0.6 mg Admin: 01/13/19 20:34 Dose: 0.6 mg Admin: 01/13/19 11:53 Dose: 0.6 mg Sodium Chloride (Nss 1000ml) 1,000 mls @ 999 mls/hr IV .Q1H1M ONE Stop: 01/13/19 08:59 Last Admin: 01/13/19 08:50 Dose: Not Given Sodium Chloride (Nss 1000ml) 1,000 mls @ 80 mls/hr IV .[id number] KALPESH Stop: 02/12/19 08:48 Last Infusion: 01/14/19 02:03 Dose: 0 mls/hr Admin: 01/13/19 20:34 Dose: 80 mls/hr Infusion: 01/13/19 20:34 Dose: 80 mls/hr Admin: 01/13/19 09:30 Dose: 80 mls/hr Magnesium Sulfate/Dextrose (Magnesium Sulfate / D5w) 1 gm in 100 mls @ 100 mls/ hr IV ONE ONE Stop: 01/14/19 02:23 Last Infusion: 01/14/19 02:39 Dose: 0 mls/hr Admin: 01/14/19 01:36 Dose: 100 mls/hr Ketorolac Tromethamine (Toradol) 30 mg IV Q6H PRN PRN Reason: Pain Stop: 01/15/19 11:00 Last Admin: 01/13/19 18:28 Dose: 30 mg Nitroglycerin (Nitro-Bid 2%) 1 inch EXT NOW STA Stop: 01/13/19 05:22 Last Admin: 01/13/19 05:31 Dose: 1 inch Nitroglycerin (Nitro-Bid 2%) 1 inch EXT Q6H KALPESH Stop: 02/12/19 11:29 Last Admin: 01/13/19 12:10 Dose: Not Given Non-Formulary Medication (Txfxs-Dc-6-Sli-Uco-Oftafdd-Ast [Krill Oil]) 2 cap PO DAILY KALPESH Stop: 02/12/19 08:59 Last Admin: 01/13/19 12:10 Dose: Not Given Non-Formulary Medication (Magnesium W-Ayuvdj-Ogjoejtxhzr [Magnesium L-Threon- Niacinamide]) 1 ea PO DAILY KALPESH Stop: 02/12/19 08:59 Last Admin: 01/13/19 12:10 Dose: Not Given Non-Formulary Medication (Zpojkktcj-I92-UjY64-Fc-Iqhaiupxfot [Ofnpkxpun-E44-Wc- Resveratrol]) 1 ea PO DAILY KALPESH Stop: 02/12/19 08:59 Last Admin: 01/13/19 12:10 Dose: Not Given Non-Formulary Medication (Vitamin K2 [Vitamin K2]) 40 mcg PO DAILY KALPESH Stop: 02/12/19 08:59 Last Admin: 01/13/19 12:10 Dose: Not Given Non-Formulary Medication ([place] 7-Ffo-Oor-Fish Oil [Fish Oil]) 2 cap PO DAILY KALPESH Stop: 02/12/19 08:59 Last Admin: 01/13/19 12:10 Dose: Not Given Perflutren Lipid Microsphere (Definity) 3 ml IV ONCE ONE Stop: 01/13/19 11:15 Last Admin: 01/13/19 11:29 Dose: 2 ml Potassium Chloride (Klor-Con M20) 20 meq PO NOW STA Stop: 01/14/19 01:25 Last Admin: 01/14/19 01:36 Dose: 20 meq Medical Decision Making Differential Diagnosis DDx: Acute coronary syndrome, pulmonary embolus, aortic dissection, musculoskeletal pain, pneumonia, pleural effusion, pneumothorax, GERD, PUD, cholecystitis Medical Records Attestation: I reviewed the patient's medical records. Home Medications Current Medication List: was personally reviewed by me Laboratory Data Attestation: I reviewed the patient's lab results. Result diagrams: 01/14/19 00:35 01/14/19 00:35 Lab Results 01/13/19 01/13/19 01/13/19 Range/Units 05:10 05:10 05:10 WBC 10.17 (4.8-10.8) K/uL RBC 5.14 (4.7-6.1) M/uL Hgb 15.0 (14.0-18.0) g/dL Hct 44.3 (42-52) % MCV 86.2 (80-100) fL MCH 29.2 (25-34) pg MCHC 33.9 (32-36) g/dL RDW Std Deviation 42.7 (36.4-46.3) fL RDW Coeff of [place] 13.6 (11.5-14.5) % Plt Count 285 (130-400) K/uL MPV 9.6 (7.4-10.4) fL Immature Gran % (Auto) 0.3 % Neut % (Auto) 71.0 % Lymph % (Auto) 18.1 % [place] % (Auto) 8.8 % Eos % (Auto) 1.5 % Baso % (Auto) 0.3 % Immature Gran # (Auto) 0.03 H (0.00-0.02) K/uL Neut # (Auto) 7.23 H (1.4-6.5) K/uL Lymph # (Auto) 1.84 (1.2-3.4) K/uL [place] # (Auto) 0.89 H (0.11-0.59) K/uL Eos # (Auto) 0.15 (0-0.5) K/uL Baso # (Auto) 0.03 (0-0.2) K/uL ESR (0-14) mm/hr D-Dimer (0-500) ug/L FEU Sodium 140 (136-145) mmol/L Potassium 4.6 (3.5-5.1) mmol/L Chloride 108 H (98-107) mmol/L Carbon Dioxide 24 (21-32) mmol/L Anion Gap 8.0 (3-11) BUN 21 H (7-18) mg/dl Creatinine 1.00 (0.6-1.4) mg/dl Est Cr Clr Drug Dosing 89.3 ml/min Est GFR ( Amer) 97.1 Est GFR (Non-Af Amer) 83.8 BUN/Creatinine Ratio 21.0 H (10-20) Glucose 125 H (70-99) mg/dl POC Glucose (70-99) Calcium 9.0 (8.5-10.1) mg/dl Magnesium (1.8-2.4) mg/dl Total Bilirubin 0.4 (0.2-1) mg/dl AST 42 H (15-37) U/L ALT 99 H (12-78) U/L Alkaline Phosphatase 61 (45-117) U/L Troponin I < 0.015 (0-0.045) ng/ml NT-Pro-B Natriuret Pep 31 (0-900) pg/ml Total Protein 8.0 (6.4-8.2) gm/dl Albumin 4.3 (3.4-5.0) gm/dl Globulin 3.7 (2.5-4.0) gm/dl Albumin/Globulin Ratio 1.2 (0.9-2) Triglycerides (0-150) mg/dl Cholesterol (0-200) mg/dl LDL Cholesterol, Calc mg/dl VLDL Cholesterol, Calc mg/dl HDL Cholesterol mg/dl Cholesterol/HDL Ratio Lipase 129 (73-393) U/L TSH (0.300-4.500) uIu/ml Specimen Hemolysis Urine Color Urine Appearance (Clear) Urine pH (4.5-7.5) Ur Specific [place] (1.000-1.030) Urine Protein (Negative) Urine Glucose (UA) (Negative) Urine Ketones (Negative) Urine Blood (Negative) Urine Nitrite (Negative) Urine Bilirubin (Negative) Urine Urobilinogen (Negative) Ur Leukocyte Esterase (Negative) Nasal Screen MRSA (PCR) (Negative) Lyme Disease IgG Ab (Negative) Lyme Disease IgM Ab (Negative) 01/13/19 01/13/19 01/13/19 Range/Units 05:10 05:10 09:00 WBC (4.8-10.8) K/uL RBC (4.7-6.1) M/uL Hgb (14.0-18.0) g/dL Hct (42-52) % MCV (80-100) fL MCH (25-34) pg MCHC (32-36) g/dL RDW Std Deviation (36.4-46.3) fL RDW Coeff of [place] (11.5-14.5) % Plt Count (130-400) K/uL MPV (7.4-10.4) fL Immature Gran % (Auto) % Neut % (Auto) % Lymph % (Auto) % [place] % (Auto) % Eos % (Auto) % Baso % (Auto) % Immature Gran # (Auto) (0.00-0.02) K/uL Neut # (Auto) (1.4-6.5) K/uL Lymph # (Auto) (1.2-3.4) K/uL [place] # (Auto) (0.11-0.59) K/uL Eos # (Auto) (0-0.5) K/uL Baso # (Auto) (0-0.2) K/uL ESR 6 (0-14) mm/hr D-Dimer (0-500) ug/L FEU Sodium (136-145) mmol/L Potassium (3.5-5.1) mmol/L Chloride (98-107) mmol/L Carbon Dioxide (21-32) mmol/L Anion Gap (3-11) BUN (7-18) mg/dl Creatinine (0.6-1.4) mg/dl Est Cr Clr Drug Dosing ml/min Est GFR ( Amer) Est GFR (Non-Af Amer) BUN/Creatinine Ratio (10-20) Glucose (70-99) mg/dl POC Glucose (70-99) Calcium (8.5-10.1) mg/dl Magnesium (1.8-2.4) mg/dl Total Bilirubin (0.2-1) mg/dl AST (15-37) U/L ALT (12-78) U/L Alkaline Phosphatase (45-117) U/L Troponin I (0-0.045) ng/ml NT-Pro-B Natriuret Pep (0-900) pg/ml Total Protein (6.4-8.2) gm/dl Albumin (3.4-5.0) gm/dl Globulin (2.5-4.0) gm/dl Albumin/Globulin Ratio (0.9-2) Triglycerides (0-150) mg/dl Cholesterol (0-200) mg/dl LDL Cholesterol, Calc mg/dl VLDL Cholesterol, Calc mg/dl HDL Cholesterol mg/dl Cholesterol/HDL Ratio Lipase (73-393) U/L TSH (0.300-4.500) uIu/ml Specimen Hemolysis Urine Color Urine Appearance (Clear) Urine pH (4.5-7.5) Ur Specific [place] (1.000-1.030) Urine Protein (Negative) Urine Glucose (UA) (Negative) Urine Ketones (Negative) Urine Blood (Negative) Urine Nitrite (Negative) Urine Bilirubin (Negative) Urine Urobilinogen (Negative) Ur Leukocyte Esterase (Negative) Nasal Screen MRSA (PCR) Negative (Negative) Lyme Disease IgG Ab Negative (Negative) Lyme Disease IgM Ab Negative (Negative) 01/13/19 01/13/19 01/13/19 Range/Units 10:39 11:05 11:05 WBC (4.8-10.8) K/uL RBC (4.7-6.1) M/uL Hgb (14.0-18.0) g/dL Hct (42-52) % MCV (80-100) fL MCH (25-34) pg MCHC (32-36) g/dL RDW Std Deviation (36.4-46.3) fL RDW Coeff of [place] (11.5-14.5) % Plt Count (130-400) K/uL MPV (7.4-10.4) fL Immature Gran % (Auto) % Neut % (Auto) % Lymph % (Auto) % [place] % (Auto) % Eos % (Auto) % Baso % (Auto) % Immature Gran # (Auto) (0.00-0.02) K/uL Neut # (Auto) (1.4-6.5) K/uL Lymph # (Auto) (1.2-3.4) K/uL [place] # (Auto) (0.11-0.59) K/uL Eos # (Auto) (0-0.5) K/uL Baso # (Auto) (0-0.2) K/uL ESR (0-14) mm/hr D-Dimer 400 (0-500) ug/L FEU Sodium (136-145) mmol/L Potassium (3.5-5.1) mmol/L Chloride (98-107) mmol/L Carbon Dioxide (21-32) mmol/L Anion Gap (3-11) BUN (7-18) mg/dl Creatinine (0.6-1.4) mg/dl Est Cr Clr Drug Dosing ml/min Est GFR ( Amer) Est GFR (Non-Af Amer) BUN/Creatinine Ratio (10-20) Glucose (70-99) mg/dl POC Glucose (70-99) Calcium (8.5-10.1) mg/dl Magnesium (1.8-2.4) mg/dl Total Bilirubin (0.2-1) mg/dl AST (15-37) U/L ALT (12-78) U/L Alkaline Phosphatase (45-117) U/L Troponin I < 0.015 (0-0.045) ng/ml NT-Pro-B Natriuret Pep (0-900) pg/ml Total Protein (6.4-8.2) gm/dl Albumin (3.4-5.0) gm/dl Globulin (2.5-4.0) gm/dl Albumin/Globulin Ratio (0.9-2) Triglycerides (0-150) mg/dl Cholesterol (0-200) mg/dl LDL Cholesterol, Calc mg/dl VLDL Cholesterol, Calc mg/dl HDL Cholesterol mg/dl Cholesterol/HDL Ratio Lipase (73-393) U/L TSH (0.300-4.500) uIu/ml Specimen Hemolysis Urine Color Yellow Urine Appearance Clear (Clear) Urine pH 6.0 (4.5-7.5) Ur Specific [place] 1.018 (1.000-1.030) Urine Protein Negative (Negative) Urine Glucose (UA) Negative (Negative) Urine Ketones Negative (Negative) Urine Blood Negative (Negative) Urine Nitrite Negative (Negative) Urine Bilirubin Negative (Negative) Urine Urobilinogen Negative (Negative) Ur Leukocyte Esterase Negative (Negative) Nasal Screen MRSA (PCR) (Negative) Lyme Disease IgG Ab (Negative) Lyme Disease IgM Ab (Negative) 01/13/19 01/13/19 01/13/19 Range/Units 11:40 16:01 16:50 WBC (4.8-10.8) K/uL RBC (4.7-6.1) M/uL Hgb (14.0-18.0) g/dL Hct (42-52) % MCV (80-100) fL MCH (25-34) pg MCHC (32-36) g/dL RDW Std Deviation (36.4-46.3) fL RDW Coeff of [place] (11.5-14.5) % Plt Count (130-400) K/uL MPV (7.4-10.4) fL Immature Gran % (Auto) % Neut % (Auto) % Lymph % (Auto) % [place] % (Auto) % Eos % (Auto) % Baso % (Auto) % Immature Gran # (Auto) (0.00-0.02) K/uL Neut # (Auto) (1.4-6.5) K/uL Lymph # (Auto) (1.2-3.4) K/uL [place] # (Auto) (0.11-0.59) K/uL Eos # (Auto) (0-0.5) K/uL Baso # (Auto) (0-0.2) K/uL ESR (0-14) mm/hr D-Dimer (0-500) ug/L FEU Sodium (136-145) mmol/L Potassium (3.5-5.1) mmol/L Chloride (98-107) mmol/L Carbon Dioxide (21-32) mmol/L Anion Gap (3-11) BUN (7-18) mg/dl Creatinine (0.6-1.4) mg/dl Est Cr Clr Drug Dosing ml/min Est GFR ( Amer) Est GFR (Non-Af Amer) BUN/Creatinine Ratio (10-20) Glucose (70-99) mg/dl POC Glucose 115 H 84 (70-99) Calcium (8.5-10.1) mg/dl Magnesium (1.8-2.4) mg/dl Total Bilirubin (0.2-1) mg/dl AST (15-37) U/L ALT (12-78) U/L Alkaline Phosphatase (45-117) U/L Troponin I < 0.015 (0-0.045) ng/ml NT-Pro-B Natriuret Pep (0-900) pg/ml Total Protein (6.4-8.2) gm/dl Albumin (3.4-5.0) gm/dl Globulin (2.5-4.0) gm/dl Albumin/Globulin Ratio (0.9-2) Triglycerides (0-150) mg/dl Cholesterol (0-200) mg/dl LDL Cholesterol, Calc mg/dl VLDL Cholesterol, Calc mg/dl HDL Cholesterol mg/dl Cholesterol/HDL Ratio Lipase (73-393) U/L TSH (0.300-4.500) uIu/ml Specimen Hemolysis Urine Color Urine Appearance (Clear) Urine pH (4.5-7.5) Ur Specific [place] (1.000-1.030) Urine Protein (Negative) Urine Glucose (UA) (Negative) Urine Ketones (Negative) Urine Blood (Negative) Urine Nitrite (Negative) Urine Bilirubin (Negative) Urine Urobilinogen (Negative) Ur Leukocyte Esterase (Negative) Nasal Screen MRSA (PCR) (Negative) Lyme Disease IgG Ab (Negative) Lyme Disease IgM Ab (Negative) 01/13/19 01/14/19 01/14/19 Range/Units 20:38 00:35 00:35 WBC 7.47 (4.8-10.8) K/uL RBC 4.55 L (4.7-6.1) M/uL Hgb 13.4 L (14.0-18.0) g/dL Hct 39.3 L (42-52) % MCV 86.4 (80-100) fL MCH 29.5 (25-34) pg MCHC 34.1 (32-36) g/dL RDW Std Deviation 42.9 (36.4-46.3) fL RDW Coeff of [place] 13.5 (11.5-14.5) % Plt Count 226 (130-400) K/uL MPV 9.0 (7.4-10.4) fL Immature Gran % (Auto) 0.1 % Neut % (Auto) 53.3 % Lymph % (Auto) 32.0 % [place] % (Auto) 10.8 % Eos % (Auto) 3.5 % Baso % (Auto) 0.3 % Immature Gran # (Auto) 0.01 (0.00-0.02) K/uL Neut # (Auto) 3.98 (1.4-6.5) K/uL Lymph # (Auto) 2.39 (1.2-3.4) K/uL [place] # (Auto) 0.81 H (0.11-0.59) K/uL Eos # (Auto) 0.26 (0-0.5) K/uL Baso # (Auto) 0.02 (0-0.2) K/uL ESR (0-14) mm/hr D-Dimer (0-500) ug/L FEU Sodium 142 (136-145) mmol/L Potassium 3.7 D (3.5-5.1) mmol/L Chloride 110 H (98-107) mmol/L Carbon Dioxide 27 (21-32) mmol/L Anion Gap 5.0 (3-11) BUN 18 (7-18) mg/dl Creatinine 0.92 (0.6-1.4) mg/dl Est Cr Clr Drug Dosing 100.5 ml/min Est GFR ( Amer) 107.4 Est GFR (Non-Af Amer) 92.6 BUN/Creatinine Ratio 19.9 (10-20) Glucose 94 (70-99) mg/dl POC Glucose 89 (70-99) Calcium 7.9 L (8.5-10.1) mg/dl Magnesium 1.8 (1.8-2.4) mg/dl Total Bilirubin 0.6 (0.2-1) mg/dl AST 21 (15-37) U/L ALT 66 (12-78) U/L Alkaline Phosphatase 40 L (45-117) U/L Troponin I (0-0.045) ng/ml NT-Pro-B Natriuret Pep (0-900) pg/ml Total Protein 6.3 L D (6.4-8.2) gm/dl Albumin 3.3 L (3.4-5.0) gm/dl Globulin 3.0 (2.5-4.0) gm/dl Albumin/Globulin Ratio 1.1 (0.9-2) Triglycerides 128 (0-150) mg/dl Cholesterol 226 H (0-200) mg/dl LDL Cholesterol, Calc 147 mg/dl VLDL Cholesterol, Calc 26 mg/dl HDL Cholesterol 53 mg/dl Cholesterol/HDL Ratio 4 Lipase 106 (73-393) U/L TSH 0.714 (0.300-4.500) uIu/ml Specimen Hemolysis Urine Color Urine Appearance (Clear) Urine pH (4.5-7.5) Ur Specific [place] (1.000-1.030) Urine Protein (Negative) Urine Glucose (UA) (Negative) Urine Ketones (Negative) Urine Blood (Negative) Urine Nitrite (Negative) Urine Bilirubin (Negative) Urine Urobilinogen (Negative) Ur Leukocyte Esterase (Negative) Nasal Screen MRSA (PCR) (Negative) Lyme Disease IgG Ab (Negative) Lyme Disease IgM Ab (Negative) 01/14/19 Range/Units 07:32 WBC (4.8-10.8) K/uL RBC (4.7-6.1) M/uL Hgb (14.0-18.0) g/dL Hct (42-52) % MCV (80-100) fL MCH (25-34) pg MCHC (32-36) g/dL RDW Std Deviation (36.4-46.3) fL RDW Coeff of [place] (11.5-14.5) % Plt Count (130-400) K/uL MPV (7.4-10.4) fL Immature Gran % (Auto) % Neut % (Auto) % Lymph % (Auto) % [place] % (Auto) % Eos % (Auto) % Baso % (Auto) % Immature Gran # (Auto) (0.00-0.02) K/uL Neut # (Auto) (1.4-6.5) K/uL Lymph # (Auto) (1.2-3.4) K/uL [place] # (Auto) (0.11-0.59) K/uL Eos # (Auto) (0-0.5) K/uL Baso # (Auto) (0-0.2) K/uL ESR (0-14) mm/hr D-Dimer (0-500) ug/L FEU Sodium (136-145) mmol/L Potassium (3.5-5.1) mmol/L Chloride (98-107) mmol/L Carbon Dioxide (21-32) mmol/L Anion Gap (3-11) BUN (7-18) mg/dl Creatinine (0.6-1.4) mg/dl Est Cr Clr Drug Dosing ml/min Est GFR ( Amer) Est GFR (Non-Af Amer) BUN/Creatinine Ratio (10-20) Glucose (70-99) mg/dl POC Glucose 107 H (70-99) Calcium (8.5-10.1) mg/dl Magnesium (1.8-2.4) mg/dl Total Bilirubin (0.2-1) mg/dl AST (15-37) U/L ALT (12-78) U/L Alkaline Phosphatase (45-117) U/L Troponin I (0-0.045) ng/ml NT-Pro-B Natriuret Pep (0-900) pg/ml Total Protein (6.4-8.2) gm/dl Albumin (3.4-5.0) gm/dl Globulin (2.5-4.0) gm/dl Albumin/Globulin Ratio (0.9-2) Triglycerides (0-150) mg/dl Cholesterol (0-200) mg/dl LDL Cholesterol, Calc mg/dl VLDL Cholesterol, Calc mg/dl HDL Cholesterol mg/dl Cholesterol/HDL Ratio Lipase (73-393) U/L TSH (0.300-4.500) uIu/ml Specimen Hemolysis Urine Color Urine Appearance (Clear) Urine pH (4.5-7.5) Ur Specific [place] (1.000-1.030) Urine Protein (Negative) Urine Glucose (UA) (Negative) Urine Ketones (Negative) Urine Blood (Negative) Urine Nitrite (Negative) Urine Bilirubin (Negative) Urine Urobilinogen (Negative) Ur Leukocyte Esterase (Negative) Nasal Screen MRSA (PCR) (Negative) Lyme Disease IgG Ab (Negative) Lyme Disease IgM Ab (Negative) Imaging Data Attestation: I personally reviewed and interpreted this imaging study as follows : My Impression: Chest x-ray shows poor inspiratory effort, no focal lung consolidation, and no failure ECG Data Attestation: I personally reviewed and interpreted this ECG as follows: Indication: chest pain Rate (beats per minute): 80 Rhythm: normal sinus Findings: + other (Left atrial enlargement); no acute ischemic change and no ectopy Blood Pressure Blood Pressure Findings: Normal blood pressure Blood Pressure Disposition: did not require urgent referral MDM Narrative This pt was evaluated and appeared to be in no distress. IV access was obtained and lab work was drawn. NTG paste was applied. Pt was given ASA 324 mg to chew. EKG reveals no acute ischemia. CXR is clear. Trop is negative, but AST/ALT are slightly elevated. US RUQ was ordered. Case was d/w the hospitalist service for further management. Pt is aware of the plan and agrees. Impression & Plan Left sided chest pain, Elevated liver enzymes Discharge Plan Visit Data *Final* Discharge Date/Time: 01/13/19 08:29 Chief Complaint: Chest Pain Stated Complaint: CHEST PAIN ED Provider: Tatiana Bailey Discharge Problem: Left sided chest pain, Elevated liver enzymes Patient Disposition: Admitted As Inpatient Condition: Good Discharge Instructions Interventions: ED Discharge Assessment Last Done: 01/13/19 08:29 The scribe's documentation has been prepared under my direction and personally reviewed by me in its entirety. I confirm that the note above accurately reflects all work, treatment, procedures, and medical decision making performed by me.
--- NOTE | 2019-01-13 07:14 | XRay Report ---
XR chest 1V portable CLINICAL HISTORY: 58 years-old Male presenting with Chest Pain. TECHNIQUE: Portable upright AP view of the chest was obtained. COMPARISON: 07/19/2017. FINDINGS: Cardiac silhouette mildly enlarged. Pulmonary vascular prominence. Mildly low lung volumes. Minimal b asilar opacities. No pleural effusion or pneumothorax. Degenerative changes of the thoracic spine. Up per abdomen normal. IMPRESSION: 1. Mild cardiomegaly with volume overload. No nenita pulmonary edema. 2. Mildly low lung volumes with hypoventilatory changes. Electronically signed by: Tramaine Rogers M.D. 01/13/2019 7:13 AM
[2019-01-13] MEDS ORDERED: SODIUM CHLORIDE 0.9% 1000ML 1,000 ML IV ONE (07:59)
--- NOTE | 2019-01-13 08:30 | Ultrasound Report ---
BILIARY ULTRASOUND CLINICAL HISTORY: Chest and epigastric pain COMPARISON STUDY: No previous studies for comparison. FINDINGS: The pancreas was nonvisualized. The liver demonstrated coarse echogenicity. Within the righ t lobe the liver there are 2 echogenic lesions measuring 13 mm and 12 mm respectively. These are cons istent with although not specific for hepatic hemangiomas. In addition there is an 11 mm hypoechoic l esion with through transmission within the right lobe likely representing a cyst. The gallbladder appears sonographically normal. The common bile duct measures 7 mm. There is a 1 cm right renal cortical cyst. There is mild to moderate right-sided hydronephrosis. Jony tional imaging might be considered in follow-up for further evaluation IMPRESSION: 1. Unexplained Mild to moderate right-sided hydronephrosis 2. Ultrasonographically normal gallbladder 3. Nondiagnostic evaluation the pancreas 4. Coarsened hepatic echotexture. There are 2 echogenic lesions within the right lobe measuring 13 mm and 12 mm respectively. These are consistent with although not specific for hepatic hemangiomas. In addition there is a suspected 11 mm right lobe hepatic cyst 5. 7 mm common bile duct Electronically signed by: Jamar Buchanan M.D. 01/13/2019 8:28 AM
[2019-01-13] MEDS ORDERED: ONDANSETRON INJ 2 MG/ML 2 ML VIAL IV PRN (08:49)
[2019-01-13] MEDS ORDERED: NITROGLYCERIN SL 0.4 MG/TAB TAB SL PRN ×2 (08:49)
[2019-01-13] MEDS ORDERED: [UNRECOGNIZED DRUG - OTHER] PO SCH (09:00)
[2019-01-13] MEDS ORDERED: VITAMIN K2 40 MCG PO SCH (09:00)
[2019-01-13] MEDS ORDERED: KRILL OM DHA EPA PHOSPHO AST PO SCH (09:00)
[2019-01-13] MEDS ORDERED: OMEGA DHA EPA FISH OIL PO SCH (09:00)
--- NOTE | 2019-01-13 09:07 | History & Physical Report ---
Date of Service January 13, 2019 Assessment & Plan (1) Chest pain: This is a 58 year old male with significant PMH of CAD with hx of PCI to RCA , HLD, pre-diabetes with recent A1C 5.9, vit d deficiency who presents to [facility] secondary to chest pain x 12 hours. In the ED initial troponin was negative without any significant ECG changes. Symptoms improved with addition of nitro paste. Of significance patient did have a slight elevation of AST to 42 and ALT 99, T bilirubin WNL, lipase 129. PRIOR LFT had been WNL. CXR revealed mild cardiomegaly with volume overload but without overt pulmonary edema and low lung volumes with hypoventilation. Given elevated LFT gallbladder ultrasound was performed which revealed 1. Unexplained Mild to moderate right-sided hydronephrosis, 2. Ultrasonographically normal gallbladder, 3. Coarsened hepatic echotexture with 2 echogenic lesions within the right lobe measuring 13 mm and 12 mm respectively , and 7 mm common bile duct. ddx: ACS, unstable/stable angina, PE, CHF, pericarditis, pleuritis, GI etiology including PUD, pancreatitis, choledocholithiasis -admit to telemetry -keep NPO for now -trend cardiac enzymes -check pro bnp, ddimer r/o other etiology of chest pain -repeat cbc, cmp, lipase in a.m. -IVF 80cc/hr -continue nitropaste -consult Dr. Alfaro -order echocardiogram (2) Elevated liver enzymes: ? significance, very mild, bili WNL, biliary duct 7mm -no recent viral illness -has been off lipitor for 6-7 months -? if passed choledocholithiasis -repeat CMP and lipase in a.m. -gallbladder U/S noted -if continues to remain elevated recommend consult GI, hepatitis panel (3) Hydronephrosis, right: -monitor urinary signs/symptoms -no apparent sx -check UA with micro -may require follow up with outpatient urology (4) Lesion of right lobe of liver: -recommend f/u U/S or CT scan as outpatient -recommend outpt referral to GI (5) CAD (coronary artery disease): -on ASA and fish oil -work up as noted above (6) HLD (hyperlipidemia): -off statin -check fasting lipid panel -recent lipid panel 12/13 total chol 274, LDL 182, trig 132, HDL 66 -stopped lipitor on own in 05/2018 (7) Pre-diabetes: -most recent a1c 5.9 11/2018 -monitor accuchecks AC/HS if consistently elevated will add novolog sliding scale (8) Vitamin D deficiency: -continue vit d supplementation (9) DVT prophylaxis: -scds for now and encourage ambulation Disposition: D/C to home when able Follow up: PCP Dr. Posey upon discharge along with follow up regarding hepatic lesions/R hydronephrosis as outpt Patient was seen an examined with Dr. Delgado, please see addendum Starting 01/14/19 patient will be followed by Dr. Liriano History of Present Illness Chief Complaint: Chest Pain x 12 hours Primary Care Provider: Timur Bustamante This is a 58 year old male with significant PMH of CAD with hx of PCI to RCA , HLD, pre-diabetes with recent A1C 5.9, vit d deficiency who presents to [facility] secondary to chest pain x 12 hours. Symptoms started approximately 9 PM last evening. Chest pain is substernal, nonradiating, constant, waxes and wanes in severity, worse with lying down and taking deep breaths, improved with nitroglycerin and leaning forward. Sx were associated with lightheadedness, diaphoresis, nausea. Symptoms have since resolved since the addition of Nitropaste. Symptoms similar to when presented in 2017 with NSTEMI, but only difference is this time it is worse with deep breaths. He is very active individual doing aerobics for 1 hour 6 times a week. He has not had any exertional chest pain or dyspnea with this. He denies any recent viral illness. Denies fever, chills, sweats, dizziness, syncope, shortness of breath , VALDEZ, cough, hemoptysis, swelling, emesis, diarrhea, abdominal pain, change in bowel or urinary habits, dysuria, hematuria, increased urgency or frequency. Patient is established with Dr. Alfaro. Last episode of chest pain was in summer 2017 prior to following up with Dr. Alfaro. Sx resolved and did not appear to be cardiac at that time; therefore no further testing was pursued. Lastly he has been off his lipitor for approx 7 months and has been using diet and exercise to treat his cholesterol. No recent travel or immobilization. Sx not related to meals. Allergies Allergy/AdvReac Type Severity Reaction Status Date / Time No Known Allergies Allergy Verified 07/17/17 02:00 Home Medications Home Medications Medication Instructions Recorded Confirmed Type ascorbic acid (vitamin C) [Vitamin 1 g PO DAILY 01/13/19 01/13/19 History C] aspirin 81 mg PO DAILY 01/13/19 01/13/19 History cholecalciferol (vitamin D3) 6,000 unit PO DAILY 01/13/19 01/13/19 History [Vitamin D3] [id number]-[id number] 2 cap PO DAILY 01/13/19 01/13/19 History [krill oil] magnesium [id number]-isylnx-ewyiuaqiekl 1 dose PO DAILY 01/13/19 01/13/19 History nitroglycerin [Nitrostat] 0.5 mg SUBLINGUAL UD PRN 01/13/19 01/13/19 History omega 7-jgy-fut-fish oil [Fish Oil] 2 cap PO DAILY 01/13/19 01/13/19 History [id number] 1 dose PO DAILY 01/13/19 01/13/19 History vitamin K2 40 mcg PO DAILY 01/13/19 01/13/19 History Past Med/Surg History Medical History History of pericarditis Pre-diabetes Vitamin D deficiency History of non-ST elevation myocardial infarction (NSTEMI) 06/2017 s/p PCI with EZ x [address] Alfaro CAD (coronary artery disease) HLD (hyperlipidemia) Heart attack (Resolved) History of coronary artery disease (Resolved) Pericarditis (Resolved) Family history of premature CAD Surgical History History of percutaneous coronary intervention Status post AC joint reconstruction History of arthroscopic knee surgery History of hernia repair Family History Other Family history of premature CAD Social History marital status: Current Living Situation: Spouse Other Information That Helps Us Care for You: No Feels Safe at Home: Yes Smoking Status: Never smoker Hx Alcohol Use: Yes Alcohol type: beer and wine Alcohol Intake Frequency: a few times a month Hx Substance Use: No Beliefs That Will Affect Care: None Preferred Language: Syriac Communication Ability: Effective Review of Systems All systems reviewed & are unremarkable except as noted in HPI & below Physical Exam 2 Vital Signs (Past 24 Hours): Last Vital Signs Temp 36.8 C 01/13/19 04:54 Pulse 74 01/13/19 08:29 Resp 18 01/13/19 08:29 BP 117/100 01/13/19 08:29 Pulse Ox 93 01/13/19 08:29 Physical Exam: Gen: WD/WN, physicially fit, Male, NAD, sitting up at bedside, pleasant, conversing easily Head: Normocephalic, Atraumatic Eyes: Sclera normal, no conjunctival injection, PERRLA, EOMI ENT: Gross hearing intact, normal pharynx, mucous membranes moist Neck: supple, no adenopathy, No JVD, no bruit, Resp: Clear to auscultation b/l, no wheeze, rales, rhonchi. 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 Extremities: No edema bilaterally Skin: warm, moist, no rash, negative turgor, cap refill < 2sec Neuro: Alert and oriented x 3, speech normal, good mood/affect, cran nerve 2-12 intact grossly : deferred Results & Data Laboratory Results Short CBC 01/13/19 01/13/19 Range/Units 05:10 05:10 WBC 10.17 (4.8-10.8) K/uL Hgb 15.0 (14.0-18.0) g/dL Hct 44.3 (42-52) % Plt Count 285 (130-400) K/uL Creatinine 1.00 (0.6-1.4) mg/dl BMP 01/13/19 05:10 Sodium 140 Potassium 4.6 Chloride 108 H Carbon Dioxide 24 BUN 21 H Creatinine 1.00 Glucose 125 H Calcium 9.0 Cardiac Enzymes 01/13/19 Range/Units 05:10 Troponin I < 0.015 (0-0.045) ng/ml Liver Function 01/13/19 Range/Units 05:10 Total Bilirubin 0.4 (0.2-1) mg/dl AST 42 H (15-37) U/L ALT 99 H (12-78) U/L Alkaline Phosphatase 61 (45-117) U/L Albumin 4.3 (3.4-5.0) gm/dl Diagnostic Findings Gallbladder U/S: IMPRESSION: 1. Unexplained Mild to moderate right-sided hydronephrosis 2. Ultrasonographically normal gallbladder 3. Nondiagnostic evaluation the pancreas 4. Coarsened hepatic echotexture. There are 2 echogenic lesions within the right lobe measuring 13 mm and 12 mm respectively. These are consistent with although not specific for hepatic hemangiomas. In addition there is a suspected 11 mm right lobe hepatic cyst 5. 7 mm common bile duct CXR: IMPRESSION: 1. Mild cardiomegaly with volume overload. No nenita pulmonary edema. 2. Mildly low lung volumes with hypoventilatory changes. ECG Rate (beats per minute): 80 Rhythm: normal sinus Findings: + nonspecific-ST abn (t wave inversion III) Code Status & VTE Plan Code Status Full Code VTE Prophylaxis Plan VTE Prophylaxis will be ordered: No Supervising Physician Co-Signing Physician Notes delayed entry date of service as noted above Attending Addendum: care coordinated with ELMER Beyer please refer to her notes for full details, I agree with her notes patient seen and examined, records reviewed by myself as well on exam, patient seen resting in bed, comfortable states substernal chest pain is improving denies dyspnea, dizziness, nausea no other symptoms VS noted and reviewed oriented x 3 , not in distress, speaks in sentences with no effort nor accessory muscle use normal rate, regular rhythm, no murmurs clear breath sounds bilaterally non distended, soft, nontender no bipedal edema, erythema, warmth no neuro deficits troponins negative x 3 EKG non ischemic ASSESSMENT AND PLAN CHEST PAIN ACS ruled out r/o Pericarditis, Pleurisy, Musculoskeletal pain -- echo pending cardiology consulted, Colchicine started MILD-MODERATE HYDRONEPHROSIS -- will need renal US ELEVATED LFTS -- ff up closely also has: Coarsened hepatic echotexture. There are 2 echogenic lesions within the right lobe measuring 13 mm and 12 mm respectively. These are consistent with although not specific for hepatic hemangiomas. In addition there is a suspected 11 mm right lobe hepatic cyst -- GI referral as outpatient other diagnoses and plan of care as per ELMER Rodriguez's notes Brennan Panlilio MD _ (1) CAD (coronary artery disease) Associated angina: with unstable angina Coronary Disease-Associated Artery/ Lesion type: [place] artery [place] vs. transplanted heart: [place] heart Qualified Code(s): I25.110 - Atherosclerotic heart disease of [place] coronary artery with unstable angina pectoris (2) HLD (hyperlipidemia) Hyperlipidemia type: unspecified Qualified Code(s): E78.5 - Hyperlipidemia, unspecified (3) Chest pain Chest pain type: precordial pain Qualified Code(s): R07.2 - Precordial pain
[2019-01-13] MEDS: SODIUM CHLORIDE 0.9% 1000ML 1,000 ML IV SCH ×2 (09:30→20:34)
[2019-01-13] MEDS: ACETAMINOPHEN 325 MG TAB PO PRN ×2 (10:16→20:42)
[2019-01-13 10:45] LABS: Appearance Urine Clear (Clear); Bilirubin Urine Negative (Negative); Blood Urine Negative (Negative); Color Urine Yellow; Glucose Urine UA Negative (Negative); Ketones Urine Negative (Negative); Leukocyte Esterase Urine Negative (Negative); Nitrite Urine Negative (Negative); Protein Urine Negative (Negative); Specific Gravity Urine 1.018 (1.000-1.030); Urobilinogen Urine Negative (Negative)
[2019-01-13] MEDS: ASPIRIN 81 MG ECTAB PO SCH (10:47)
[2019-01-13] MEDS: ASCORBIC ACID 500 MG TAB PO SCH (10:48)
[2019-01-13] MEDS: CHOLECALCIFEROL 1,000 UNITS TAB PO SCH (10:48)
[2019-01-13] MEDS ORDERED: PERFLUTREN LIPID MICROSPHERE (DEFINITY) IV ONE (11:14)
[2019-01-13] MEDS ORDERED: NITROGLYCERIN 2% OINTMENT 30GM TUBE EXT SCH (11:30)
[2019-01-13] MEDS ORDERED: KETOROLAC 30 MG/ML VIAL IV PRN (11:32)
[2019-01-13] MEDS: COLCHICINE 0.6 MG TAB PO SCH ×2 (11:53→20:34)
[2019-01-13 12:03] LABS: D Dimer 400 ug/L FEU (0-500)
--- NOTE | 2019-01-13 12:05 | Cardiology Consultation ---
Date of Consultation January 13, 2019 Assessment & Plan (1) Chest pain: Mr. Vaca is a 58-year-old male with a history of CAD s/p Anterior MA 07/17 s/p Mid LAD EZ / staged Early Mid RCA EZ 07/18/2017, Dyslipidemia, and a family history of Premature CAD who developed Chest Pain last evening at approximately 9:00 pm which has been continuously present (to variable degrees) for the past 12+ hours. The chest pain does not worsen with exertion nor is it better with rest. Chest Pain is worsened by deep breathing, holding his breath , and with certain arm movements. He took NTG which may have lessened the discomfort last night -- but the discomfort never resolved. His Chest pain is dissimilar to his prior anginal complaints and is Atypical Chest Pain. This may represent pleurisy, pericarditis, or may be musculoskeletal. -- Echocardiogram is pending. -- Begin Colchicine 0.6 mg bid. -- Begin Toradol 30 IV q 6 hours as needed for pain. -- D/C NTP. -- Serial cardiac enzymes. -- Continue usual cardiac medications. -- Check ESR. -- Patient may resume a heart healthy diet. Present on Admission?: Yes (2) CAD (coronary artery disease): -- Continue Aspirin 81 mg daily. -- Check FLP. -- Consider restarting a Statin medication. Present on Admission?: Yes Supervising Physician Co-Signing Physician Notes Randall Alfaro MD Agree with assessment and plan as outlined by physician periodontal assistant uV Mendoza. Patient well-known to me from prior AMI and outpatient setting. Current pain atypical, pleuritic in nature. No evidence of cardiac ischemia on labs, EKG. Suspicion for ACS is very low. No need for additional cardiac testing. Continue home cardiac regimen. History of Present Illness Reason for Consultation: -- CHEST PAIN. -- CAD. Requesting Physician: Brennan Delgado MD Attending Physician: Randall Alfaro MD History of Present Illness Mr. Vaca is a 58-year-old male with a history of CAD s/p Anterior MA 07/17/2017 s/p Mid LAD EZ / staged Early Mid RCA EZ 07/18/2017, Dyslipidemia, and a family history of Premature CAD who developed Chest Pain last evening at approximately 9:00 pm which has been continuously present (to variable degrees) for the past 12+ hours. The chest pain does not worsen with exertion nor is it better with rest. Chest Pain is worsened by deep breathing, holding his breath , and with certain arm movements. He took NTG which may have lessened the discomfort last night -- but the discomfort never resolved. At about midnight - - he felt somewhat flushed and sweaty and that lasted 30 to 45 seconds. His Chest pain is dissimilar to his prior anginal complaints. Initial Troponin I level is < 0.015 ng/ml, and EKG shows no acute changes. Patient exercises 6 days per week with at least 60 minutes of aerobic activity. He has not had any recent changes in his exertional tolerance, or his stamina. Patient specifically denies any exertional chest pain, heaviness, tightness, pressure, or discomfort. He denies any exertional neck, jaw, back, or arm pain. He denies any shortness of breath, unusual dyspnea on exertion, or any recent changes in his exertional tolerance. He further denies any orthopnea, PND, palpitations, syncope, or near syncope. HISTORICAL BACKGROUND: Patient initially presented to [facility] in July 17, 2017 with 3 days new exertional chest tightness / unstable angina pectoris. Initial EKG nondiagnostic, troponin minimally elevated but after vasovagal bradycardic/ syncopal episode. A Heart Alert was activated. Emergent Cardiac Catheterization revealed a acute on chronic mid LAD occlusion with right-to- left collaterals and an 80% early mid RCA stenosis. Patient treated with PCI to LAD with single drug-eluting stent. Subsequently underwent staged PCI on hospital day 2 with a another drug-eluting stent placed to his RCA. Postprocedure Echocardiogram showed mild LV dysfunction with hypokinetic mid to distal anterior wall and akinetic apex. Troponin peaked at 13.9. Subsequent successful intervention to mid LAD with deployment of 3.0 x 33 mm Xience drug- eluting stent. Post dilated with 3.25 mm noncompliant balloon. No residual stenosis. [place] 3 flow in LAD post PCI. Treated with Integrilin and ticagrelor. Elective intervention to RCA stenosis July 18, 2017. Deployment of 3.5 x 15 mm Xience drug-eluting stent. Post dilated with 4.5 mm diameter balloon. Allergies Allergy/AdvReac Type Severity Reaction Status Date / Time No Known Allergies Allergy Verified 07/17/17 02:00 Home Medications Home Medications Medication Instructions Recorded Confirmed Type ascorbic acid (vitamin C) [Vitamin 1 g PO DAILY 01/13/19 01/13/19 History C] aspirin 81 mg PO DAILY 01/13/19 01/13/19 History cholecalciferol (vitamin D3) 6,000 unit PO DAILY 01/13/19 01/13/19 History [Vitamin D3] muzcr-le-9-foh-jcv-cvhxruf-ast 2 cap PO DAILY 01/13/19 01/13/19 History [krill oil] magnesium C-hnzgtl-busdchflkxo 1 dose PO DAILY 01/13/19 01/13/19 History nitroglycerin [Nitrostat] 0.5 mg SUBLINGUAL UD PRN 01/13/19 01/13/19 History omega 6-dxn-hcz-fish oil [Fish Oil] 2 cap PO DAILY 01/13/19 01/13/19 History dzfvalbxz-Z43-OIY06-VC-nmuooplyjze 1 dose PO DAILY 01/13/19 01/13/19 History vitamin K2 40 mcg PO DAILY 01/13/19 01/13/19 History Patient History Medical History History of pericarditis Pre-diabetes Vitamin D deficiency History of non-ST elevation myocardial infarction (NSTEMI) 06/2017 s/p PCI with EZ x [address] Alfaro CAD (coronary artery disease) HLD (hyperlipidemia) Heart attack (Resolved) History of coronary artery disease (Resolved) Pericarditis (Resolved) Family history of premature CAD Surgical History History of percutaneous coronary intervention Status post AC joint reconstruction History of arthroscopic knee surgery History of hernia repair Family History Other Family history of premature CAD Social History marital status: Current Living Situation: Spouse Other Information That Helps Us Care for You: No Feels Safe at Home: Yes Smoking Status: Never smoker Hx Alcohol Use: Yes Alcohol type: beer and wine Alcohol Intake Frequency: a few times a month Hx Substance Use: No Beliefs That Will Affect Care: None Preferred Language: [place] Communication Ability: Effective Physical Exam 2 Vital Signs (Past 24 Hours): Last Vital Signs Temp 36.9 C 01/13/19 08:45 Pulse 72 01/13/19 08:45 Resp 16 01/13/19 08:45 BP 125/89 01/13/19 08:45 Pulse Ox 96 01/13/19 08:45 Physical Exam: General: Patient in no acute distress. HEENT: Head is atraumatic, normocephalic. EOMs intact. Sclerae anicteric. Facies symmetric. No perioral cyanosis. Neck: No JVD. Carotid upstrokes +2 bilaterally without bruits. JVP is at the level of the clavicle sitting upright. Chest and Lungs: Clear to auscultation throughout all lung joyce, no wheezes, rales, or rhonchi. No pleural rubs. CVS: S1 and S2 are regular without murmurs, gallops, or rubs. PMI is nondisplaced. No lifts, heaves, or thrills. No abdominal aortic or renal bruits. Abdominal Exam: Bowel sounds present. No masses, organomegaly, or tenderness. Extremities: No clubbing, cyanosis, or edema. Intact posterior tibial and radial pulses bilaterally. Neurologic Exam: Patient is awake, alert, and oriented. Pleasant and cooperative. Answers questions appropriately. Speech is clear. Normal movement in all 4 extremities. Gait pattern is unremarkable. Musculoskeletal Exam: Reproducible chest wall tenderness at LLSB. No bony deformity or crepitus. EKG 01/13/2019: Normal sinus rhythm Possible Left atrial enlargement Borderline ECG When compared with ECG of 19-JUL-2017 09:08, T wave inversion less evident in Inferior leads T wave inversion no longer evident in anterolateral leads Results & Data Laboratory Results Laboratory Results - last 24 hr 01/13/19 01/13/19 01/13/19 05:10 05:10 05:10 WBC 10.17 RBC 5.14 Hgb 15.0 Hct 44.3 MCV 86.2 MCH 29.2 MCHC 33.9 RDW Std Deviation 42.7 RDW Coeff of [place] 13.6 Plt Count 285 MPV 9.6 Immature Gran % (Auto) 0.3 Neut % (Auto) 71.0 Lymph % (Auto) 18.1 [place] % (Auto) 8.8 Eos % (Auto) 1.5 Baso % (Auto) 0.3 Immature Gran # (Auto) 0.03 H Neut # (Auto) 7.23 H Lymph # (Auto) 1.84 [place] # (Auto) 0.89 H Eos # (Auto) 0.15 Baso # (Auto) 0.03 ESR D-Dimer Sodium 140 Potassium 4.6 Chloride 108 H Carbon Dioxide 24 Anion Gap 8.0 BUN 21 H Creatinine 1.00 Est Cr Clr Drug Dosing 89.3 Est GFR ( Amer) 97.1 Est GFR (Non-Af Amer) 83.8 BUN/Creatinine Ratio 21.0 H Glucose 125 H POC Glucose Calcium 9.0 Total Bilirubin 0.4 AST 42 H ALT 99 H Alkaline Phosphatase 61 Troponin I < 0.015 NT-Pro-B Natriuret Pep 31 Total Protein 8.0 Albumin 4.3 Globulin 3.7 Albumin/Globulin Ratio 1.2 Lipase 129 Specimen Hemolysis Urine Color Urine Appearance Urine pH Ur Specific [place] Urine Protein Urine Glucose (UA) Urine Ketones Urine Blood Urine Nitrite Urine Bilirubin Urine Urobilinogen Ur Leukocyte Esterase 01/13/19 01/13/19 01/13/19 05:10 10:39 11:05 WBC RBC Hgb Hct MCV MCH MCHC RDW Std Deviation RDW Coeff of [place] Plt Count MPV Immature Gran % (Auto) Neut % (Auto) Lymph % (Auto) [place] % (Auto) Eos % (Auto) Baso % (Auto) Immature Gran # (Auto) Neut # (Auto) Lymph # (Auto) [place] # (Auto) Eos # (Auto) Baso # (Auto) ESR 6 D-Dimer Sodium Potassium Chloride Carbon Dioxide Anion Gap BUN Creatinine Est Cr Clr Drug Dosing Est GFR ( Amer) Est GFR (Non-Af Amer) BUN/Creatinine Ratio Glucose POC Glucose Calcium Total Bilirubin AST ALT Alkaline Phosphatase Troponin I < 0.015 NT-Pro-B Natriuret Pep Total Protein Albumin Globulin Albumin/Globulin Ratio Lipase Specimen Hemolysis Urine Color Yellow Urine Appearance Clear Urine pH 6.0 Ur Specific [place] 1.018 Urine Protein Negative Urine Glucose (UA) Negative Urine Ketones Negative Urine Blood Negative Urine Nitrite Negative Urine Bilirubin Negative Urine Urobilinogen Negative Ur Leukocyte Esterase Negative 01/13/19 01/13/19 11:05 11:40 WBC RBC Hgb Hct MCV MCH MCHC RDW Std Deviation RDW Coeff of [place] Plt Count MPV Immature Gran % (Auto) Neut % (Auto) Lymph % (Auto) [place] % (Auto) Eos % (Auto) Baso % (Auto) Immature Gran # (Auto) Neut # (Auto) Lymph # (Auto) [place] # (Auto) Eos # (Auto) Baso # (Auto) ESR D-Dimer 400 Sodium Potassium Chloride Carbon Dioxide Anion Gap BUN Creatinine Est Cr Clr Drug Dosing Est GFR ( Amer) Est GFR (Non-Af Amer) BUN/Creatinine Ratio Glucose POC Glucose 115 H Calcium Total Bilirubin AST ALT Alkaline Phosphatase Troponin I NT-Pro-B Natriuret Pep Total Protein Albumin Globulin Albumin/Globulin Ratio Lipase Specimen Hemolysis Urine Color Urine Appearance Urine pH Ur Specific [place] Urine Protein Urine Glucose (UA) Urine Ketones Urine Blood Urine Nitrite Urine Bilirubin Urine Urobilinogen Ur Leukocyte Esterase Medications Administered Active Medications Generic Name Dose Route Start Last Admin Trade Name Freq PRN Reason Stop Dose Admin Acetaminophen 650 mg 01/13/19 08:49 01/13/19 10:16 Tylenol PO 02/12/19 08:48 650 mg Q4H PRN Administration Pain or Fever Ascorbic Acid 1,000 mg 01/13/19 09:00 01/13/19 10:48 Vitamin C PO 02/12/19 08:59 Not Given DAILY KALPESH Aspirin 81 mg 01/13/19 09:00 01/13/19 10:47 Ecotrin Ectab PO 02/12/19 08:59 Not Given DAILY KALPESH Colchicine 0.6 mg 01/13/19 11:45 01/13/19 11:53 Colcrys PO 02/12/19 11:44 0.6 mg BID KALPESH Administration Sodium Chloride 1,000 mls @ 80 mls/hr 01/13/19 08:49 01/13/19 09:30 Nss 1000ml IV 02/12/19 08:48 80 mls/hr .[id number] KALPESH Administration Ketorolac Tromethamine 30 mg 01/13/19 11:32 Toradol IV 01/15/19 11:00 Q6H PRN Pain Nitroglycerin 0.4 mg 01/13/19 08:49 Nitrostat SL 02/12/19 08:48 UD PRN Chest Pain Ondansetron HCl 4 mg 01/13/19 08:49 Zofran IV 02/12/19 08:48 Q6H PRN Nausea Vitamin D 6,000 units 01/13/19 09:00 01/13/19 10:48 Vitamin D3 PO 02/12/19 08:59 Not Given DAILY KALPESH _ (1) CAD (coronary artery disease) Associated angina: with unstable angina Coronary Disease-Associated Artery/ Lesion type: [place] artery [place] vs. transplanted heart: [place] heart Qualified Code(s): I25.110 - Atherosclerotic heart disease of [place] coronary artery with unstable angina pectoris (2) Chest pain Chest pain type: precordial pain Ischemic chest pain type: Qualified Code(s ): R07.2 - Precordial pain
[2019-01-14 00:49] LABS: Basophils # (auto) 0.02 K/uL (0-0.2); Basophils % (auto) 0.3 %; Eosinophils # (auto) 0.26 K/uL (0-0.5); Eosinophils % (auto) 3.5 %; Hematocrit (blood only) 39.3 % (42-52); Hemoglobin 13.4 g/dL (14.0-18.0); Immature Granulocytes # (auto) 0.01 K/uL (0.00-0.02); Immature Granulocytes % (auto) 0.1 %; Lymphocytes # (auto) 2.39 K/uL (1.2-3.4); Mean Corpuscular Hgb Conc 34.1 g/dL (32-36); Mean Corpuscular Volume 86.4 fL (80-100); Monocytes # (auto) 0.81 K/uL (0.11-0.59); Monocytes % (auto) 10.8 %; Neutrophils # (auto) 3.98 K/uL (1.4-6.5); Neutrophils % (auto) 53.3 %; Platelet Count 226 K/uL (130-400); RDW Coefficient of Variation 13.5 % (11.5-14.5); RDW Standard Deviation 42.9 fL (36.4-46.3); Red Blood Count 4.55 M/uL (4.7-6.1); White Blood Count 7.47 K/uL (4.8-10.8)
[2019-01-14] MEDS ORDERED: ATROPINE SULFATE 0.1 MG/ML 5ML SYR IV PRN (01:02)
[2019-01-14 01:12] LABS: Albumin Level 3.3 gm/dl (3.4-5.0); BUN Creatinine Ratio 19.9 (10-20); Calcium 7.9 mg/dl (8.5-10.1); Creatinine Clr Calc Pharmacy 100.5 ml/min; Est GFR (African American) 107.4; Est GFR (Non-African American) 92.6; Magnesium 1.8 mg/dl (1.8-2.4); Potassium 3.7 mmol/L (3.5-5.1)
[2019-01-14 01:21] LABS: Albumin Globulin Ratio 1.1 (0.9-2); Bilirubin,Total 0.6 mg/dl (0.2-1); Total Protein 6.3 gm/dl (6.4-8.2)
[2019-01-14] MEDS ORDERED: POTASSIUM CHLORIDE 20 MEQ TABCR PO STA (01:24)
[2019-01-14] MEDS ORDERED: MAGNESIUM SULFATE / D5W 1 GM/100 ML BAG IV ONE (01:24)
[2019-01-14 02:46] LABS: Lyme Ab IgG w/WB Rflx Negative (Negative); Lyme Ab IgM w/WB Rflx Negative (Negative)
[2019-01-14] MEDS: COLCHICINE 0.6 MG TAB PO SCH (08:16)
[2019-01-14] MEDS: CHOLECALCIFEROL 1,000 UNITS TAB PO SCH (08:17)
[2019-01-14] MEDS: ASPIRIN 81 MG ECTAB PO SCH (08:18)
[2019-01-14] MEDS: ASCORBIC ACID 500 MG TAB PO SCH (08:19)
[2019-01-14 11:49] VITALS: BP 127/81; TEMP 98.2; O2SAT 99
--- NOTE | 2019-01-14 14:23 | Cardiology Progress Note ---
Date of Service January 14, 2019 Assessment & Plan (1) Chest pain: 2. CAD post prior AMI and EZ LAD, RCA 3. Dyslipidemia 4. Sinus Bradycardia Chest pain symptoms improved. Atypical feature and no evidence of coronary ischemia. LV function improved on echo. Suspicion for ACS very low. -- OK for discharge today without additional cardiac testing -- continue home ASA, restart atorvastatin 80mg daily -- reasonable to continue colchicine for 1 month. -- His sinus bradycardia on telemetry while sleeping is benign. -- Follow up with cardiology in 2 months for further lipid management. Subjective Feeling well. Minimal residual chest pain. Tele reviewed -- sinus derrick to high 30s while sleeping, asymptomatic. Review of Systems All systems reviewed & are unremarkable except as noted in HPI & below Physical Exam 2 Vital Signs (Past 24 Hours): Last Vital Signs Temp 36.8 C 01/14/19 11:48 Pulse 80 01/14/19 11:48 Resp 16 01/14/19 11:48 BP 127/81 01/14/19 11:48 Pulse Ox 99 01/14/19 11:48 Constitutional: WD/WN, vitals as above Eyes: + anicteric sclerae Neck: trachea midline, no thyromegaly Respiratory: normal respiratory effort, lungs clear to auscultation Cardiovascular: RRR, no murmur, no edema Gastrointestinal (Abdomen): normal bowel sounds, soft, nontender, no hepatosplenomegaly Skin: no rashes, warm and dry Psychiatric: A+Ox3, euthymic affect _ (1) Chest pain Chest pain type: precordial pain Ischemic chest pain type: Qualified Code(s ): R07.2 - Precordial pain
--- NOTE | 2019-01-14 14:29 | Hospitalist Progress Note ---
Date of Service January 14, 2019 Assessment & Plan (1) Chest pain: This is a 58 year old male with significant PMH of CAD with hx of PCI to RCA , HLD, pre-diabetes with recent A1C 5.9, vit d deficiency who presents to [facility] secondary to chest pain x 12 hours. In the ED initial troponin was negative without any significant ECG changes. Symptoms improved with addition of nitro paste. Of significance patient did have a slight elevation of AST to 42 and ALT 99, T bilirubin WNL, lipase 129. PRIOR LFT had been WNL. CXR revealed mild cardiomegaly with volume overload but without overt pulmonary edema and low lung volumes with hypoventilation. Given elevated LFT gallbladder ultrasound was performed which revealed 1. Unexplained Mild to moderate right-sided hydronephrosis, 2. Ultrasonographically normal gallbladder, 3. Coarsened hepatic echotexture with 2 echogenic lesions within the right lobe measuring 13 mm and 12 mm respectively , and 7 mm common bile duct. NON CARDIAC Chest pain History of CAD post prior AMI and EZ LAD, RCA. History of Dyslipidemia Troponins are negative Echocardiogram with normal ejection fraction and no wall motion abnormality evaluated by [facility] as inpatient continue home ASA, restart atorvastatin 80mg daily will be discharged on ibuprofen for chest pain, possibly muscular skeletal no acute inflammation noted on echocardiogram and ESR is normal so unlikely to have pericarditis - will hold off further colchicine Sinus Bradycardia His sinus bradycardia on telemetry while sleeping is benign as per cardiology evaluation (2) Elevated liver enzymes: Mild transaminitis on presentation transaminitis has reoslved (3) Hydronephrosis, right: Mild to moderate right-sided hydronephrosis (asymptomatic) outpatient follow up (4) Lesion of right lobe of liver: Gallbladder ultrasound FINDINGS: The pancreas was nonvisualized. The liver demonstrated coarse echogenicity. Within the right lobe the liver there are 2 echogenic lesions measuring 13 mm and 12 mm respectively. These are consistent with although not specific for hepatic hemangiomas. In addition there is an 11 mm hypoechoic lesion with through transmission within the right lobe likely representing a cyst. The gallbladder appears sonographically normal. The common bile duct measures 7 mm. There is a 1 cm right renal cortical cyst. There is mild to moderate right- sided hydronephrosis. Additional imaging might be considered in follow-up for further evaluation IMPRESSION: 1. Unexplained Mild to moderate right-sided hydronephrosis 2. Ultrasonographically normal gallbladder 3. Nondiagnostic evaluation the pancreas 4. Coarsened hepatic echotexture. There are 2 echogenic lesions within the right lobe measuring 13 mm and 12 mm respectively. These are consistent with although not specific for hepatic hemangiomas. In addition there is a suspected 11 mm right lobe hepatic cyst 5. 7 mm common bile duct outpatient follow up (5) CAD (coronary artery disease): -on ASA and fish oil - Patient should take atovastatin 80 mg daily, discharge prescriptions made (6) HLD (hyperlipidemia): Patient should take atovastatin 80 mg daily, discharge prescriptions made Follow up with cardiology in 2 months for further lipid management. (7) Pre-diabetes: -most recent a1c 5.9 11/2018 -outpatient follow up (8) Vitamin D deficiency: -continue vitamin D supplementation as outpatient (9) DVT prophylaxis: ambulation Discharge Diagnosis non cardiac chest pain, sinus bradycardia, lesions of right lobe of liver, Mild to moderate right-sided hydronephrosis (asymptomatic) Discharge Instructions Patient can take ibuprofen 200 mg every 6 hours as needed for 5 days Patient should follow up with primary care doctor 01/20/2019 10:55 AM Provider Timur Bustamante DO [facility] 05/27/2019 8:10 AM Provider Timur Bustamante DO [facility] Patient should follow up with cardiology service Dr. Alfaro or his colleagues in cardiology in 2 months and should call to make this appointment Subjective Patient seen and examined at bedside. Patient denies chest pain. Had bradycardia overnight but asymptomatic. Patient denies palpitations. denies shortness of breath. denies abdominal pain. denies vomiting Physical Exam 2 Vital Signs (Past 24 Hours): Last Vital Signs Temp 36.8 C 01/14/19 11:48 Pulse 80 01/14/19 11:48 Resp 16 01/14/19 11:48 BP 127/81 01/14/19 11:48 Pulse Ox 99 01/14/19 11:48 Constitutional: WD/WN, vitals as above Eyes: PERRL, conjunctivae normal, anicteric sclerae ENMT: external ear and nose normal, oropharynx normal Neck: trachea midline, no thyromegaly Respiratory: normal respiratory effort, lungs clear to auscultation Cardiovascular: RRR, no murmur, no edema Gastrointestinal (Abdomen): normal bowel sounds, soft, nontender, no hepatosplenomegaly Musculoskeletal: no cyanosis or clubbing, extremities motor strength 5/5 Head/Neck/Chest: normocephalic and head atraumatic Neurologic: PERRL, EOMI, accommodation nl, no face palsy, no dysarthria CN' s II-XI intact bilaterally Psychiatric: A+Ox3, euthymic affect _ (1) CAD (coronary artery disease) Associated angina: with unstable angina Coronary Disease-Associated Artery/ Lesion type: [place] artery [place] vs. transplanted heart: [place] heart Qualified Code(s): I25.110 - Atherosclerotic heart disease of [place] coronary artery with unstable angina pectoris (2) HLD (hyperlipidemia) Hyperlipidemia type: unspecified Qualified Code(s): E78.5 - Hyperlipidemia, unspecified (3) Chest pain Chest pain type: precordial pain Ischemic chest pain type: Qualified Code(s ): R07.2 - Precordial pain
[2019-01-14] MEDS ORDERED: IBUPROFEN 200 MG TAB PO PRN (14:39)
[2019-01-14 14:51] VITALS: PULSE 62
--- NOTE | 2019-01-14 15:06 | Discharge Summary ---
Date of Service January 14, 2019 Admission HPI Per Admitting Provider This is a 58 year old male with significant PMH of CAD with hx of PCI to RCA , HLD, pre-diabetes with recent A1C 5.9, vit d deficiency who presents to [facility] secondary to chest pain x 12 hours. Symptoms started approximately 9 PM last evening. Chest pain is substernal, nonradiating, constant, waxes and wanes in severity, worse with lying down and taking deep breaths, improved with nitroglycerin and leaning forward. Sx were associated with lightheadedness, diaphoresis, nausea. Symptoms have since resolved since the addition of Nitropaste. Symptoms similar to when presented in 2017 with NSTEMI, but only difference is this time it is worse with deep breaths. He is very active individual doing aerobics for 1 hour 6 times a week. He has not had any exertional chest pain or dyspnea with this. He denies any recent viral illness. Denies fever, chills, sweats, dizziness, syncope, shortness of breath , VALDEZ, cough, hemoptysis, swelling, emesis, diarrhea, abdominal pain, change in bowel or urinary habits, dysuria, hematuria, increased urgency or frequency. Patient is established with Dr. Alfaro. Last episode of chest pain was in summer 2017 prior to following up with Dr. Alfaro. Sx resolved and did not appear to be cardiac at that time; therefore no further testing was pursued. Lastly he has been off his lipitor for approx 7 months and has been using diet and exercise to treat his cholesterol. No recent travel or immobilization. Sx not related to meals. Admission Exam Per Admitting Provider Gen: WD/WN, physicially fit, Male, NAD, sitting up at bedside, pleasant, conversing easily Head: Normocephalic, Atraumatic Eyes: Sclera normal, no conjunctival injection, PERRLA, EOMI ENT: Gross hearing intact, normal pharynx, mucous membranes moist Neck: supple, no adenopathy, No JVD, no bruit, Resp: Clear to auscultation b/l, no wheeze, rales, rhonchi. 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 Extremities: No edema bilaterally Skin: warm, moist, no rash, negative turgor, cap refill < 2sec Neuro: Alert and oriented x 3, speech normal, good mood/affect, cran nerve 2-12 intact grossly : deferred Principal Diagnosis non cardiac chest pain, sinus bradycardia, lesions of right lobe of liver, Mild to moderate right-sided hydronephrosis (asymptomatic) Discharge Exam Constitutional WD/WN, vitals as above Eyes PERRL, conjunctivae normal, anicteric sclerae ENMT external ear and nose normal, oropharynx normal Neck trachea midline, no thyromegaly Respiratory normal respiratory effort, lungs clear to auscultation Cardiovascular RRR, no murmur, no edema Gastrointestinal (Abdomen) normal bowel sounds, soft, nontender, no hepatosplenomegaly Musculoskeletal no cyanosis or clubbing, extremities motor strength 5/5 Head/Neck/Chest: normocephalic and head atraumatic Neurologic PERRL, EOMI, accommodation nl, no face palsy, no dysarthria CN's II-XI intact bilaterally Psychiatric A+Ox3, euthymic affect Discharge Data Allergies Allergy/AdvReac Type Severity Reaction Status Date / Time No Known Allergies Allergy Verified 07/17/17 02:00 Consultations 01/13/19 07:10 ED Decision to Admit Stat 01/13/19 08:49 Consult Cardiology Routine Ordered Studies 01/13/19 06:47 US gallbladder Stat Hospital Course (1) Chest pain: This is a 58 year old male with significant PMH of CAD with hx of PCI to RCA , HLD, pre-diabetes with recent A1C 5.9, vit d deficiency who presents to [facility] secondary to chest pain x 12 hours. In the ED initial troponin was negative without any significant ECG changes. Symptoms improved with addition of nitro paste. Of significance patient did have a slight elevation of AST to 42 and ALT 99, T bilirubin WNL, lipase 129. PRIOR LFT had been WNL. CXR revealed mild cardiomegaly with volume overload but without overt pulmonary edema and low lung volumes with hypoventilation. Given elevated LFT gallbladder ultrasound was performed which revealed 1. Unexplained Mild to moderate right-sided hydronephrosis, 2. Ultrasonographically normal gallbladder, 3. Coarsened hepatic echotexture with 2 echogenic lesions within the right lobe measuring 13 mm and 12 mm respectively , and 7 mm common bile duct. NON CARDIAC Chest pain History of CAD post prior AMI and EZ LAD, RCA. History of Dyslipidemia Troponins are negative Echocardiogram with normal ejection fraction and no wall motion abnormality evaluated by [facility] as inpatient continue home ASA, restart atorvastatin 80mg daily will be discharged on ibuprofen for chest pain, possibly muscular skeletal no acute inflammation noted on echocardiogram and ESR is normal so unlikely to have pericarditis - will hold off further colchicine Sinus Bradycardia His sinus bradycardia on telemetry while sleeping is benign as per cardiology evaluation (2) Elevated liver enzymes: Mild transaminitis on presentation transaminitis has reoslved (3) Hydronephrosis, right: Mild to moderate right-sided hydronephrosis (asymptomatic) outpatient follow up (4) Lesion of right lobe of liver: Gallbladder ultrasound FINDINGS: The pancreas was nonvisualized. The liver demonstrated coarse echogenicity. Within the right lobe the liver there are 2 echogenic lesions measuring 13 mm and 12 mm respectively. These are consistent with although not specific for hepatic hemangiomas. In addition there is an 11 mm hypoechoic lesion with through transmission within the right lobe likely representing a cyst. The gallbladder appears sonographically normal. The common bile duct measures 7 mm. There is a 1 cm right renal cortical cyst. There is mild to moderate right- sided hydronephrosis. Additional imaging might be considered in follow-up for further evaluation IMPRESSION: 1. Unexplained Mild to moderate right-sided hydronephrosis 2. Ultrasonographically normal gallbladder 3. Nondiagnostic evaluation the pancreas 4. Coarsened hepatic echotexture. There are 2 echogenic lesions within the right lobe measuring 13 mm and 12 mm respectively. These are consistent with although not specific for hepatic hemangiomas. In addition there is a suspected 11 mm right lobe hepatic cyst 5. 7 mm common bile duct outpatient follow up (5) CAD (coronary artery disease): -on ASA and fish oil - Patient should take atovastatin 80 mg daily, discharge prescriptions made (6) HLD (hyperlipidemia): Patient should take atovastatin 80 mg daily, discharge prescriptions made Follow up with cardiology in 2 months for further lipid management. (7) Pre-diabetes: -most recent a1c 5.9 11/2018 -outpatient follow up (8) Vitamin D deficiency: -continue vitamin D supplementation as outpatient (9) DVT prophylaxis: ambulation Discharge Diagnosis non cardiac chest pain, sinus bradycardia, lesions of right lobe of liver, Mild to moderate right-sided hydronephrosis (asymptomatic) Discharge Instructions Patient can take ibuprofen 200 mg every 6 hours as needed for 5 days Patient should follow up with primary care doctor 01/20/2019 10:55 AM Provider Timur Bustamante DO [facility] 05/27/2019 8:10 AM Provider Timur Bustamante [facility] Patient should follow up with cardiology service Dr. Alfaro or his colleagues in cardiology in 2 months and should call to make this appointment Total Time Total Time Spent Total Time Spent (In Minutes): 40 minutes Total Time Includes: Examination of the Patient, Discharge Planning and Medication Reconciliation Discharge Plan Discharge Items Patient Disposition: Home - Self-Care Reason For Visit: CHEST PAIN Discharge Diagnosis: non cardiac chest pain, sinus bradycardia, lesions of right lobe of liver, Mild to moderate right-sided hydronephrosis (asymptomatic) Condition: Good Discharge Goals: Decrease discomfort and Improve disease control Activity: Resume your previous activity Non-emergency contact: Primary Care Provider and 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 Alfaro or his colleagues in cardiology in 2 months and should call to make this appointment Prescriptions: New ibuprofen 200 mg Tablet 200 mg PO Q6H PRN (Reason: pain) 5 Days Qty: 20 RF: 0 atorvastatin 40 mg Tablet 80 mg PO QAM 30 Days Qty: 60 RF: 0 Continue aspirin 81 mg Tablet,Delayed Release (Dr/Ec) 81 mg PO DAILY RF: 0 nitroglycerin [Nitrostat] 0.4 mg Tablet, Sublingual 0.5 mg Sublingual UD PRN (Reason: Chest Pain) RF: 0 ascorbic acid (vitamin C) [Vitamin C] 1,000 mg Tablet 1 g PO DAILY RF: 0 cholecalciferol (vitamin D3) [Vitamin D3] 2,000 unit Tablet 6,000 unit PO DAILY RF: 0 omega 3-eyx-yaj-fish oil [Fish Oil] 1,000 mg (120 mg-180 mg) Capsule 2 cap PO DAILY RF: 0 zyelu-dc-7-ppz-ehv-gqcoyjy-ast [krill oil] 1,250-279-49-80 mg Capsule 2 cap PO DAILY RF: 0 vitamin K2 40 mcg Tablet 40 mcg PO DAILY RF: 0 bnscypiib-N32-[id number]-ZO-cwdhwlfxdsb 200-5-0.8-400 mg Capsule 1 dose PO DAILY RF: 0 magnesium D-agrlya-aiefpvyzvve 42 mg (500 mg)- 250 mg Tablet Extended Release 1 dose PO DAILY RF: 0 Stand-Alone Forms: Call Back Authorization, [facility] Discharge Orders: Discharge Order (Routine); Ordered 01/14/19 Ordered By: Jarrett Liriano Admission Data Admit Date/Time: 01/13/19 07:27 Attending Provider: Jarrett Liriano Admit Provider: Brennan Delgado Primary Care Provider: Timur Bustamante Other Providers: Avel Macario ; Vu Mendoza ; Tonny Dixon ; Godwin Watson ; Rick Cortez ; Fredo Fairbanks Jr ; Werner Mace ; Maria Walker ; Francisca Gamboa ; Etienne Alfaro ; Etienne Hernandez ; Frandy Quintero ; Joe Man ; Kirk Damian ; Mckenna James ; Teagan Waldron Service: Telemetry
[2019-01-15] MEDS ORDERED: ATORVASTATIN 40 MG TAB PO SCH (09:00)
== END 2019-01-14 15:58 | disposition home or self-care (01) ==
LOC: ED 04:47 → 1E 04:47 → SUATTDRO 07:27 → 1E 08:29 → 2E 18:35

== ENCOUNTER 2020-01-17 09:11 | Observation (INO) ==
--- OUTSIDE RECORDS SUMMARY | 2020-01-17 09:14 | External Medical Summary | Continuity of Care Document ---
:1960 Author Name Yulia Kinney, Provider Address Unavailable Unavailable , Care Team Providers Name Role Phone Maria Walker PA-C Unavailable [email or web address] Kinney, [email or web address] [email or web address] [email or web address] DALEY Unavailable Unavailable Unavailable Unavailable Unavailable Problems Encounter for sterilization (V25.2) (Z30.2) Impaired fasting glucose (790.21) (R73.01) Dyslipidemia (272.4) (E78.5) Arteriosclerosis of coronary artery (414.00) (I25.10) S/P drug eluting coronary stent placement (V45.82) (Z95.5) Allergies and Adverse Reactions No Known Drug Allergies (Allergy) Medications Vitamin K2 100 MCG Oral Capsule; TAKE 2 CAPSULE Daily Start: 25-Jul-2017 Refills: 0 Vitamin D 50 MCG (2000 UT) Oral Capsule; TAKE 3 CAPSULE Kira y Start: 25-Jul-2017 Refills: 0 Vitamin C 1000 MG Oral Tablet; TAKE 1 TABLET DAILY. Start: 25-Jul-2017 Refills: 0 Folic Acid 400 MCG Oral Tablet; TAKE 1 TABLET DAILY DIREC SIDNEY. Start: 25-Jul-2017 Refills: 0 Glucosamine Chond Complex/MSM Oral Tablet; TAKE 1 TABLET ZIGGY LY DIRECTED. Start: 25-Jul-2017 Refills: 0 Nitroglycerin 0.4 MG Sublingual Tablet S ublingual; PLACE 1 TABLET UNDER THE TONGUE EVERY 5 MINUTES FOR UP TO 3 DOSES NEEDED FOR CHEST PAIN.CALL 911 IF PAIN PERSISTS. Refills: 0 Metoprolol Tartrate 25 MG Oral Tablet; TAKE 1/2 TABLET TWICE DAILY. NICOLA Walker Maria Quantity: 180 Refills: 3 Lisinopril 2.5 MG Oral Tablet; TAKE 1 TABLET DAILY. Jennifer Walker Maria Quantity: 90 Refills: 3 Atorvastatin Calcium 80 MG Oral Tablet; TAKE 1 TABLET DAILY. NICOLA Walker Maria Quantity: 30 Refills: 0 Magnesium 250 MG Oral Tablet; TAKE 1 TABLET BY MOUTH TWICE D AILY Start: 25-Jul-2017 Refills: 0 Ubiquinol 100 MG Oral Capsule; TAKE 1 CAPSULE BY MOUTH TWICE DAILY Refills: 0 Clopidogrel Bisulfate 75 MG Oral Tablet; Take 1 tablet daily Gregoria Alfaro Start: 24-Jun-2018 Quantity: 90 Refills: 3 Aspirin 81 MG TABS; TAKE 1 TABLET DAILY. Refills: 0 Procedures History of Knee Surgery Status: Complete d History of Hernia Repair Status: Complet ed History of Foot Surgery Status: Complete d History of cardiac catheterization with stent placement Status: Completed Immunizations Immunizations not documented Family History Mother No pertinent family history (V49.89) (Z78.9) Status: Active Father Family history of cardiac disorder (V17.49) (Z82.49) Status: Active Social History - Smoking Status Never smoked tobacco Plan of Treatment Planned Observations Planned Goals not documented Results No Known Results Results not documented Encounters Appointment; Randall Alfaro M.D. 24-Jun-2018 15:30 Encounter Diagnosis: Problem not documented
[2020-01-17 09:45] LABS: Basophils # (auto) 0.02 K/uL (0-0.2); Basophils % (auto) 0.2 %; Eosinophils # (auto) 0.36 K/uL (0-0.5); Hematocrit (blood only) 42.2 % (42-52); Hemoglobin 14.4 g/dL (14.0-18.0); Immature Granulocytes # (auto) 0.16 K/uL (0.00-0.02); Immature Granulocytes % (auto) 1.3 %; Lymphocytes # (auto) 2.98 K/uL (1.2-3.4); Lymphocytes % (auto) 24.9 %; Mean Corpuscular Hemoglobin 29.4 pg (25-34); Mean Corpuscular Hgb Conc 34.1 g/dL (32-36); Mean Corpuscular Volume 86.1 fL (80-100); Mean Platelet Volume 9.4 fL (7.4-10.4); Monocytes # (auto) 0.92 K/uL (0.11-0.59); Monocytes % (auto) 7.7 %; Neutrophils # (auto) 7.53 K/uL (1.4-6.5); Neutrophils % (auto) 62.9 %; Platelet Count 285 K/uL (130-400); RDW Coefficient of Variation 13.1 % (11.5-14.5); RDW Standard Deviation 41.2 fL (36.4-46.3); White Blood Count 11.97 K/uL (4.8-10.8)
[2020-01-17 09:53] LABS: Alanine Aminotransferase 70 U/L (12-78); Albumin Level 3.2 gm/dl (3.4-5.0); Aspartate Aminotransferase 28 U/L (15-37); Blood Urea Nitrogen 26 mg/dl (7-18); Calcium 8.4 mg/dl (8.5-10.1); Carbon Dioxide 25 mmol/L (21-32); Chloride 109 mmol/L (98-107); Est GFR (African American) 110.5; Est GFR (Non-African American) 95.4; Glucose 188 mg/dl (70-99); Lipase 127 U/L (73-393); Potassium 3.4 mmol/L (3.5-5.1); Sodium 140 mmol/L (136-145)
[2020-01-17 09:57] LABS: Partial Thromboplastin Ratio 0.9; Partial Thromboplastin Time 23.1 Seconds (21.0-31.0); Prothrombin Time 10.7 Seconds (9.0-12.0)
[2020-01-17 09:58] LABS: Albumin Globulin Ratio 0.9 (0.9-2); Alkaline Phosphatase 61 U/L (45-117); Bilirubin,Total 0.4 mg/dl (0.2-1); Creatine Kinase 72 U/L (39-308); Creatine Kinase MB 1.2 ng/ml (0.5-3.6); Globulin 3.4 gm/dl (2.5-4.0); Total Protein 6.6 gm/dl (6.4-8.2); Troponin I < 0.015 ng/ml (0-0.045)
--- NOTE | 2020-01-17 10:02 | XRay Report ---
XR chest 1V portable CLINICAL HISTORY: Chest Pain COMPARISON STUDY: 01/13/2019 FINDINGS: The bones soft tissues and hemidiaphragms are normal. The cardiomediastinal silhouette is n ormal. The lungs are clear. The pulmonary vasculature is normal. IMPRESSION: Negative chest. ACT 112: Negative or not required by law. The above report was generated using voice recognition software. It may contain grammatical, syntax or spelling errors. Electronically signed by: Simba Taylor M.D. 01/17/2020 10:00 AM
[2020-01-17] MEDS ORDERED: POTASSIUM CHLORIDE 20 MEQ TABCR PO STA (10:27)
[2020-01-17] MEDS ORDERED: ONDANSETRON INJ 2 MG/ML 2 ML VIAL IV STA (10:31)
[2020-01-17] MEDS ORDERED: NITROGLYCERIN SL 0.4 MG/TAB TAB ONE (11:26)
[2020-01-17] MEDS ORDERED: NITROGLYCERIN SL 0.4 MG/TAB TAB SL STA (11:32)
[2020-01-17] MEDS ORDERED: SODIUM CHLORIDE 0.9% 1000ML 500 ML IV ONE ×2 (11:32→11:43)
--- NOTE | 2020-01-17 11:42 | History & Physical Report ---
Date of Service January 17, 2020 Assessment & Plan (1) Syncope: (2) Diaphoresis: This is a 59-year-old male who has significant PMH of CAD with history of PCI 06/2017 EZ to mid LAD and mid RCA, HLD, prediabetes, vitamin D deficiency who presents to ED secondary to syncopal episode that occurred at approximately 750AM. Pt with episode of presyncopal symptoms including lightheadedness, diaphoresis and nausea and reported syncope for several seconds witnessed by . Patient states similar symptoms to prior presentation of [place]. Initial EKG WNL and troponin WNL. Labs reveal mild dehydration and hypokalemia. Question of symptoms secondary to anginal equivalent, dehydration, ADR, cardiac arrhythmia, vasovagal syncope, orthostasis Admit to PCU cycle troponin x 2 consult [facility] cardiology obtain orthostatics IVF 125cc/hr x 2 liter fasting lipid panel, A1C (3) Dehydration: Patient with elevated BUN at 26, creatinine stable at 0.88 Mild prerenal azotemia Obtain orthostatics IVF 125 cc/h x 2 L Repeat BMP in a.m. (4) Hypokalemia: K 3.4 replaced in ED repeat in a.m. (5) CAD (coronary artery disease): hx of NSTEMI and anterior [place] 07/17/2017 status post mid LAD EZ and staged mid RCA EZ 07/18/2017 Previously had been on regimen of aspirin, Brilinta, statin Currently only on ASA. Not on beta homa given sinus bradycardia. Follows [facility] cardiology, will consult (6) Sinus bradycardia: pt baseline HR 50-60 very active male monitor (7) Pre-diabetes: Last A1c 5.9 11/2018 Recently completed Medrol Dosepak, admitting glucose 188 Likely elevated in setting of mild dehydration and completion of Medrol Dosepak Monitor Accu-Cheks AC at bedtime and monitor Will not place on any insulin coverage at this time (8) Vitamin D deficiency: Continue vitamin D daily (9) DVT prophylaxis: encourage ambulation per Joaquín pt low risk for VTE, no indicated Disposition: admit to PCU; discharge to home when able Follow up: PCP Dr. Bustamante upon discharge Patient was seen and examined in collaboration with Dr. Low, please see addendum History of Present Illness Chief Complaint: Lightheadedness and syncopal episode that occurred at approximately 750am similar to anginal equivalent per patient. Primary Care Provider: Timur Bustamante DO This is a 59-year-old male who has significant PMH of CAD with history of PCI 06/2017 EZ to mid LAD and mid RCA, HLD, prediabetes, vitamin D deficiency who presents to ED secondary to syncopal episode that occurred at approximately 750AM. He was sitting on the couch after he had woken up at approximately 5 AM. He took his morning meds which includes a baby aspirin, vitamins and day 4 of 5 of azithromycin at approximately 7:40 AM. He was drinking his second cup of black coffee when at approximately 7:50 AM he became very lightheaded, diaphoretic, nauseated and feeling like he could pass out. who was at bedside witnessed the event and states, "his head went down he passed out and then his head went back and I was able to get him to come to with verbal stimu lation." She feels he was out for several seconds. During this event he denied any nenita chest pain, palpitations, shortness of breath, emesis. He states this episode is very similar to when he presented in June 2017 when he required cardiac cath and stent placement. He asked his to fetch him nitro postevent and he took 2 nitro. He felt unchanged. He arrived via EMS and is felt at his baseline since he has been here. He did have one episode during the ED for approximately 5 minutes where he felt nauseous and lightheaded again but this easily passed. Over the past 6 weeks he has been fighting a viral URI and cough which has been improving. Actually 2 weeks ago he completed a course of Medrol Dosepak. 01/14 he was placed on azithromycin as well as guaifenesin dextromethorphan. He has 1 more dose of his azithromycin. He states he has never taking this before. He further admits ever since his stent placement he has been fatigued requiring afternoon naps. denies any excessive snoring or apneic witnessed episodes. Otherwise he denies any fever, chills, sweats, chest pain, palpitations, hemoptysis, nausea, vomiting, abdominal pain, changes bowel or urinary habits. His appetite is otherwise well and denies any significant weight gain or loss. He is very active and participates in physical activity 5-6 times a week including 30 to 60 minutes of cardio including elliptical and bike. He denies any smoking use and occasional alcohol use 2-3 times a week 1 drink. Last drink was 3 mixed drinks last evening at the [facility]. In ED patient remained hemodynamically stable. Initial EKG revealed sinus bradycardia 50 bpm, T wave inversion in lead III unchanged from prior EKG. Initial troponin WNL, mild elevation BUN 26, creatinine 0.88, glucose 188, K3.4, H&H stable at 14.4 and 42.2, WBC 11.97, lipase WNL. Chest x-ray negative for acute cardiopulmonary abnormality. He received potassium replacement and IV Zofran while in ED. Allergies Allergy/AdvReac Type Severity Reaction Status Date / Time No Known Allergies Allergy Verified 01/17/20 09:54 Home Medications Home Medications Medication Instructions Recorded Confirmed Type ascorbic acid (vitamin C) [Vitamin 1 g PO DAILY 01/13/19 01/17/20 History C] aspirin 81 mg PO DAILY 01/13/19 01/17/20 History cholecalciferol (vitamin D3) 6,000 unit PO DAILY 01/13/19 01/17/20 History [Vitamin D3] qhvgr-ce-3-soo-cuv-rvpeonu-ast 2 cap PO DAILY 01/13/19 01/17/20 History [krill oil] magnesium O-fcloup-lurmjhuxtee 2 dose PO DAILY 01/13/19 01/17/20 History nitroglycerin [Nitrostat] 0.5 mg SUBLINGUAL UD PRN 01/13/19 01/17/20 History omega 1-wxp-mxd-fish oil [Fish Oil] 2 cap PO DAILY 01/13/19 01/17/20 History ojluawayv-L46-WXA21-GT-tulrpqrngcv 2 dose PO DAILY 01/13/19 01/17/20 History vitamin K2 80 mcg PO DAILY 01/13/19 01/17/20 History azithromycin 250 mg PO DAILY 01/17/20 01/17/20 History dextromethorphan-guaifenesin 1 tab PO Q12H PRN 01/17/20 01/17/20 History [Mucinex DM] Past Med/Surg History Medical History CAD (coronary artery disease) Family history of premature CAD Heart attack (Resolved) History of coronary artery disease (Resolved) History of non-ST elevation myocardial infarction (NSTEMI) 06/2017 s/p PCI with EZ x [address] 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 Beliefs That Will Affect Care: None marital status: Current Living Situation: Spouse Feels Safe at Home: Yes Smoking Status: Never smoker Hx Alcohol Use: Yes Alcohol type: beer and wine Hx Substance Use: No Review of Systems Review of Systems: All systems reviewed & are unremarkable except as noted in HPI & below Physical Exam Physical Exam: Constitutional: WD/WN, M, vitals as above, NAD, sitting up in bed, pleasant, conversing easily Head: Normocephalic, Atraumatic Eyes: PERRL, conjunctivae normal, anicteric sclerae ENMT: external ear and nose normal, oropharynx normal Neck: trachea midline, no thyromegaly normal visual inspection Respiratory: normal respiratory effort, lungs clear to auscultation, no wheeze, rales, rhonchi. Normal insp/exp effort, no accessory muscle use Cardiovascular: RRR, no murmur, no edema Vessels: no JVD or carotid bruit Chest: normal inspection of chest Abdomen: normal bowel sounds, soft, nontender, no hepatosplenomegaly Musculoskeletal: no cyanosis or clubbing, extremities motor strength 5/5 Skin: no rashes, warm and dry normal turgor Neurologic: PERRL, EOMI, accommodation nl, no face palsy, no dysarthria CN's II-XI intact bilaterally and moves all extremities Psychiatric: A+Ox3, euthymic affect Lymphatic: no cervical or axillary lymphadenopathy : deferred Results & Data Vital Signs (Past 12 Hours) Vital Signs Temp Pulse Resp BP Pulse Ox 01/17/20 09:09 36.7 C 50 L 12 131/80 94 Laboratory Results Short CBC 01/17/20 Range/Units 09:25 WBC 11.97 H (4.8-10.8) K/uL Hgb 14.4 (14.0-18.0) g/dL Hct 42.2 (42-52) % Plt Count 285 (130-400) K/uL BMP 01/17/20 09:25 Sodium 140 Potassium 3.4 L Chloride 109 H Carbon Dioxide 25 BUN 26 H Creatinine 0.88 Glucose 188 H Calcium 8.4 L Cardiac Enzymes 01/17/20 Range/Units 09:25 Total Creatine Kinase 72 (39-308) U/L CK-MB (CK-2) 1.2 (0.5-3.6) ng/ml Troponin I < 0.015 (0-0.045) ng/ml Liver Function 01/17/20 Range/Units 09:25 Total Bilirubin 0.4 (0.2-1) mg/dl AST 28 (15-37) U/L ALT 70 (12-78) U/L Alkaline Phosphatase 61 (45-117) U/L Albumin 3.2 L (3.4-5.0) gm/dl Diagnostic Findings CXR: IMPRESSION: Negative chest. Medications Administered Discontinued Medications Nitroglycerin (Nitrostat) Confirm Administered Dose 0.4 mg .ROUTE .STK-MED ONE Stop: 01/17/20 11:27 Last Admin: 01/17/20 11:28 Dose: 0.4 mg Documented by: [id number] Ondansetron HCl (Zofran) 4 mg IV NOW STA Stop: 01/17/20 10:32 Last Admin: 01/17/20 10:35 Dose: 4 mg Documented by: [id number] Potassium Chloride (Klor-Con [id number]) 40 meq PO NOW STA Stop: 01/17/20 10:28 Last Admin: 01/17/20 10:35 Dose: 40 meq Documented by: [id number] ECG Rate (beats per minute): 50 Rhythm: sinus bradycardia Change: no significant change Additional Comments: T wave inversion lead III, unchanged from prior ecg 12/2018 Code Status & VTE Plan Code Status Full Code VTE Prophylaxis Plan VTE Prophylaxis will be ordered: No Supervising Physician Co-Signing Physician Notes HISTORY: Record reviewed. Patient interviewed and examined in ED around 11:20. Care coordinated with Belkis Beyer PA-C. Please refer to her documentation for complete history. Briefly, 59 YO male with history of CAD, s/p ant [place] and PCI with EZ x 2 in 2017. Now only taking ASA for his ischemic heart disease. Not on beta homa because of bradycardia. Physically active- exercises 5-6 time a week without anginal symptoms. Recent respiratory tract infection treated with steroids and azithromycin. Episode of weakness / lightheadedness this morning followed by episode of decreased responsiveness and apparent syncope. Came to ED for evaluation. In the ED, experienced left-sided chest pressure. Received SL NTG. Few minutes later became lightheaded, diaphoretic, bradycardic down to 30's and hypotensive with sys BP's down to 70's. Received NSS bolus with resolution of symptoms and improvement of vital signs. EXAM: General- no distress Lungs- clear to auscultation; no respiratory distress Cardiovascular- RRR; I/ sys murmur at base; no gallop; no JVD; no pretibial edema; carotid and peripheral pulses intact and symmetric Abdomen- + bowel sounds, soft, nontender Extremities- no cyanosis; no calf tenderness Neuro- alert, oriented Skin- warm & dry DATA: Hgb 14.4, WBC 11,970, plts 285,000. K 3.4. Random glucose 188. BUN 26, creatinine 0.88. Troponin < 0.015 x 2. Chest x-ray reviewed and demonstrated normal cardiac silhouette, no infiltrates, effusions, CHF. CT head negative except for fluid in maxillary sinuses. CTA chest negative for PE, aortic dissection, pulmonary infiltrates. EKG performed at 0916 reviewed and demonstrated SB at 50 / minute, poor R-wave progression, no acute changes. EKG performed at 1032 reviewed and demonstrated SB at 50 / minute, poor R-wave progression, no acute changes. EKG performed at 1123 reviewed and demonstrated SB at 55 / minute, poor R-wave progression, no acute changes. EKG performed at 1139 reviewed and demonstrated SB at 55 / minute, baseline artifact, poor R-wave progression, no acute changes. ASSESSMENT AND PLAN: CHEST PAIN Known history of ischemic heart disease. No acute EKG changes. Trop neg x 2. Pulmonary embolism ruled out by CTA. Cardiology consulted. BRADYCARDIA / NEAR-SYNCOPE Apparent vasovagal episode. ? precipitating factor at home, perhaps dehydration and orthostasis. SL NTG may have been factor in ED. Continue telemetry. DEHYDRATION IV fluids. HYPOKALEMIA Replace. Follow. HYPERGLYCEMIA Check FBS + Hgb A1c. RECENT RESPIRATORY TRACT INFECTION Treated with steroids and azithromycin. Symptoms improved. No infiltrates on CXR or CTA chest. Please refer to ELMER Beyer's documentation for discussion of other issues. (1) CAD (coronary artery disease) Associated angina: with unstable angina Coronary Disease-Associated Artery/Lesion type: minto artery [place] vs. transplanted heart: minto heart Qualified Code(s): I25.110 - Atherosclerotic heart disease of minto coronary a rtery with unstable angina pectoris
[2020-01-17] MEDS ORDERED: SODIUM CHLORIDE 0.9% 1000ML 1,000 ML IV ONE (11:51)
[2020-01-17] MEDS ORDERED: OPTIRAY 320 125ml IV PRN (12:00)
--- NOTE | 2020-01-17 12:35 | CT Scan Report ---
CT head/brain wo con CT DOSE: 1314.80 mGy.cm HISTORY: Mental status change Pt c/o emesis TECHNIQUE: Multiaxial CT images of the head were performed without the use of intravenous contrast. A dose lowering technique was utilized adhering to the principles of ALARA. Comparison: None. Findings: Small mild fluid within the maxillary sinuses bilaterally. Sinuses are otherwise clear. The calvarium and skull base are intact. The ventricles and sulci are within normal limits. There is no mass, hematoma, midline shift, or acute infarct. Impression: No acute intracranial abnormality. Bilateral maxillary sinusitis. ACT 112: Negative or not required by law. The above report was generated using voice recognition software. It may contain grammatical, syntax or spelling errors. Electronically signed by: Simba Taylor M.D. 01/17/2020 12:33 PM
--- NOTE | 2020-01-17 12:39 | CT Scan Report ---
CT angio chest PE protocol CT DOSE: HISTORY: Chest pain. Dyspnea. PE TECHNIQUE: Multiaxial CT images of the chest were performed following the intravenous administration of contrast to evaluate the pulmonary arteries. Maximal intensity projection images were also obtaine d. A dose lowering technique was utilized adhering to the principles of ALARA. COMPARISON STUDY: None. FINDINGS: There is a normal caliber thoracic aorta with no evidence for dissection. There is no evide nce for pulmonary embolus. No pleural effusions. No pneumothorax. The liver and spleen are unremarkab le. No mediastinal or hilar lymphadenopathy. The central airways are patent. The lungs are clear. IMPRESSION: No evidence for pulmonary embolus. The lungs are clear. ACT 112: Negative or not required by law. The above report was generated using voice recognition software. It may contain grammatical, syntax or spelling errors. Electronically signed by: Simba Taylor M.D. 01/17/2020 12:38 PM
--- NOTE | 2020-01-17 12:40 | Communication Note ---
Date of Service: January 17, 2020 HISTORY: Record reviewed. Patient interviewed and examined in ED around 11:20. Care coordinated with Belkis Beyer PA-C. Please refer to her documentation for complete history. Briefly, 59 YO male with history of CAD, s/p ant [place] and PCI with EZ x 2 in 2017. Now only taking ASA for his ischemic heart disease. Not on beta homa because of bradycardia. Physically active- exercises 5-6 time a week without anginal symptoms. Recent respiratory tract infection treated with steroids and azithromycin. Episode of weakness / lightheadedness this morning followed by episode of decreased responsiveness and apparent syncope. Came to ED for evaluation. In the ED, experienced left-sided chest pressure. Received SL NTG. Few minutes later became lightheaded, diaphoretic, bradycardic down to 30's and hypotensive with sys BP's down to 70's. Received NSS bolus with resolution of symptoms and improvement of vital signs. EXAM: General- no distress Lungs- clear to auscultation; no respiratory distress Cardiovascular- RRR; I/ sys murmur at base; no gallop; no JVD; no pretibial edema; carotid and peripheral pulses intact and symmetric Abdomen- + bowel sounds, soft, nontender Extremities- no cyanosis; no calf tenderness Neuro- alert, oriented Skin- warm & dry DATA: Hgb 14.4, WBC 11,970, plts 285,000. K 3.4. Random glucose 188. BUN 26, creatinine 0.88. Troponin < 0.015 x 2. Chest x-ray reviewed and demonstrated normal cardiac silhouette, no infiltrates, effusions, CHF. CT head negative except for fluid in maxillary sinuses. CTA chest negative for PE, aortic dissection, pulmonary infiltrates. EKG performed at 0916 reviewed and demonstrated SB at 50 / minute, poor R-wave progression, no acute changes. EKG performed at 1032 reviewed and demonstrated SB at 50 / minute, poor R-wave progression, no acute changes. EKG performed at 1123 reviewed and demonstrated SB at 55 / minute, poor R-wave progression, no acute changes. EKG performed at 1139 reviewed and demonstrated SB at 55 / minute, baseline artifact, poor R-wave progression, no acute changes. ASSESSMENT AND PLAN: CHEST PAIN Known history of ischemic heart disease. No acute EKG changes. Trop neg x 2. Pulmonary embolism ruled out by CTA. Cardiology consulted. BRADYCARDIA / NEAR-SYNCOPE Apparent vasovagal episode. ? precipitating factor at home, perhaps dehydration and orthostasis. SL NTG may have been factor in ED. Continue telemetry. DEHYDRATION IV fluids. HYPOKALEMIA Replace. Follow. HYPERGLYCEMIA Check FBS + Hgb A1c. RECENT RESPIRATORY TRACT INFECTION Treated with steroids and azithromycin. Symptoms improved. No infiltrates on CXR or CTA chest. Please refer to ELMER Beyer's documentation for discussion of other issues.
--- NOTE | 2020-01-17 13:00 | Cardiology Consultation ---
Date of Consultation January 17, 2020 Assessment & Plan (1) Syncope: Patient had 1 episode of syncope and 1 episode of presyncope both of which appear to be vagally mediated. He had the classic prodrome and fatigue afterwards. He also was noted to have transient bradycardia on monitoring here in the emergency room. Do not believe his current symptoms are related to an acute coronary syndrome. His current symptoms are quite distinct from those he experienced during his heart attack in 2017. At that and since he presented with unrelenting and severe chest discomfort. His current symptom of fleeting chest discomfort is different in character and severity. He is currently pain-free. There does not appear to be any evidence of ischemia on objective measurements such as serial troponins, EKGs or bedside echocardiography. I am not sure what triggered his episodes of syncope and presyncope. May have a mild viral illness. He may have a mild gastrointestinal disturbance. I would agree with a period of observation. We can monitor him for any objective evidence of cardiac ischemia or development of symptoms more suggestive of a coronary event. It is very possible that the symptoms were resolved spontaneously without recurrence. In the absence of a known reversible etio logy, simply recognizing the symptoms taking the appropriate abortive maneuvers such as sitting or lying down would be the standard treatment. (2) CAD (coronary artery disease): He appears to have done quite well since his percutaneous intervention in 2017. Appears to follow a healthy lifestyle and exercises regularly. He has not had any exertional symptoms recently. He can continue his outpatient medical regimen which includes a daily aspirin. History of Present Illness Reason for Consultation: Syncope, history of coronary disease Requesting Physician: [facility] History of Present Illness The patient is a 59-year-old gentleman with a history of coronary disease having previously undergone percutaneous intervention to the LAD and right coronary artery. In 2017 presented with symptoms of chest discomfort and appear to have suffered a syncopal episode while being evaluated in the emergency room. Based on the persistent nature of his chest pain he underwent catheterization at that time was found to have an acute lesion in the LAD. This stage intervention was performed on the right coronary artery which demonstrated 80 percent stenosis at the time of angiography. He had been having some exertional symptoms leading up to that event in 2017. Since that time, the patient has actually been feeling quite well. He was evaluated approximately 1 year ago for symptoms of atypical chest discomfort. The symptoms were distinct from those experience in 2017, prolonged in nature and not associated with elevated biomarkers. He is felt to have pericarditis and sent home without recurrence. Since that time he has actually done quite well without any recurrent chest discomfort. He exercises regularly 6 days per week. This includes cardiovascular activity. He has not had any symptoms of chest discomfort, limiting dyspnea or worsening exercise tolerance recently. This morning the patient had a witnessed syncopal episode by his . It seems that after drinking a cup of coffee in taking some vitamins the patient began to feel somewhat dizzy and lightheaded. He got up from the table and later sat down but eventually lost consciousness. The patient did report feeling as though my blood pressure was dropping. He had weakness that started in his upper extremities in progress to his legs. He did report very brief sensation of chest discomfort prior to this episode. That was fleeting in nature and was not present when he regained consciousness. When he regained consciousness the patient was somewhat tired and had been diaphoretic. He was concerned about a recurrent heart problem and took nitroglycerin prior to coming to the hospital. He did not have any other symptoms of chest discomfort and currently has no symptoms of chest discomfort. While being evaluated in the emergency room the patient apparently had another similar episode where he began to feel dizzy, got diaphoretic was noted by nursing staff to be somewhat ashen and had some bradycardia. The patient also described the same scenario where there was a brief sensation of chest discomfort around the left clavicular area followed by a sense of growing weakness in his body. He does not feel that he lost consciousness during this episode. He was not witnessed lose consciousness during this episode. Currently claims to be feeling well without symptom other than some mild f atigue. There is no pleuritic component currently. There is no breathing difficulty. There is no chest pain currently. Allergies Allergy/AdvReac Type Severity Reaction Status Date / Time No Known Allergies Allergy Verified 01/17/20 09:54 Home Medications Home Medications Medication Instructions Recorded Confirmed Type ascorbic acid (vitamin C) [Vitamin 1 g PO DAILY 01/13/19 01/17/20 History C] aspirin 81 mg PO DAILY 01/13/19 01/17/20 History cholecalciferol (vitamin D3) 6,000 unit PO DAILY 01/13/19 01/17/20 History [Vitamin D3] rmpjr-gl-3-okf-alh-aduqrkx-ast 2 cap PO DAILY 01/13/19 01/17/20 History [krill oil] magnesium T-ujlxmi-xbstdmsnqno 2 dose PO DAILY 01/13/19 01/17/20 History nitroglycerin [Nitrostat] 0.5 mg SUBLINGUAL UD PRN 01/13/19 01/17/20 History omega 1-gpe-hvb-fish oil [Fish Oil] 2 cap PO DAILY 01/13/19 01/17/20 History hggebymyh-V18-[id number]-MC-xxmbropjboi 2 dose PO DAILY 01/13/19 01/17/20 History vitamin K2 80 mcg PO DAILY 01/13/19 01/17/20 History Mucinex DM 1 tab PO Q12H PRN 01/17/20 01/17/20 History atorvastatin 40 mg PO DAILY #30 tab 01/18/20 Rx Patient History Medical History CAD (coronary artery disease) Family history of premature CAD Heart attack (Resolved) History of coronary artery disease (Resolved) History of non-ST elevation myocardial infarction (NSTEMI) 06/2017 s/p PCI with EZ x [address] 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 His suffers from the same respiratory illness. He thinks his symptoms are better but still has an occasional nonproductive cough. He denies any recent fevers or chills. No sinus congestion. No abdominal pain. No change in his bowel or bladder habits. He has been exercising normally. He did attend a green party last night and had 3 glasses of wine. He did not feel this was excessive. Physical Exam Physical Exam: The patient is alert and oriented. Mood and affect appeared normal. He answered all questions appropriately. HEENT: Pupils are equal and reactive to light and accommodation. Extraocular movements are intact. The sclerae are anicteric. Neuro: Cranial nerves intact Neck: Patient's neck is supple. He has palpable carotid pulses bilaterally without bruits on auscultation. There is no evidence of jugular venous distention. The thyroid is not enlarged. Lungs: Clear to auscultation bilaterally. He has good air movement without use of accessory muscles. No rales wheezes or rhonchi. Cardiac: Heart demonstrates a regular rate and rhythm. Normal S1 and S2. No murmurs on examination. Pulses: The patient has palpable radial pulses bilaterally that are equal in intensity Extremities: There was no evidence of hypoperfusion. There is no cyanosis or clubbing. There is no edema. Skin: I did not appreciate any rashes on examination today. Results & Data ([facility]) Vital Signs (Past 12 Hours) Vital Signs Temp Pulse Resp BP Pulse Ox 01/17/20 11:39 54 L 14 109/72 92 01/17/20 11:37 41 L 14 95/50 L 96 01/17/20 11:35 29 L 16 76/43 L 97 01/17/20 11:30 58 L 16 125/86 95 01/17/20 11:00 56 L 20 128/88 97 01/17/20 10:30 51 L 14 124/80 01/17/20 10:00 58 L 13 107/70 92 01/17/20 09:30 47 L 14 108/80 97 01/17/20 09:27 50 L 14 115/81 94 01/17/20 09:19 60 98 01/17/20 09:16 62 16 131/80 98 01/17/20 09:09 36.7 C 50 L 12 131/80 94 Laboratory Results Abnormal Lab Results 01/17/20 01/17/20 01/17/20 09:25 09:25 09:25 WBC 11.97 H RBC 4.90 Hgb 14.4 Hct 42.2 MCV 86.1 MCH 29.4 MCHC 34.1 RDW Std Deviation 41.2 RDW Coeff of [place] 13.1 Plt Count 285 MPV 9.4 Immature Gran % (Auto) 1.3 Neut % (Auto) 62.9 Lymph % (Auto) 24.9 [place] % (Auto) 7.7 Eos % (Auto) 3.0 Baso % (Auto) 0.2 Immature Gran # (Auto) 0.16 H Neut # (Auto) 7.53 H Lymph # (Auto) 2.98 [place] # (Auto) 0.92 H Eos # (Auto) 0.36 Baso # (Auto) 0.02 PT 10.7 INR 1.0 APTT 23.1 PTT Ratio 0.9 Sodium 140 Potassium 3.4 L Chloride 109 H Carbon Dioxide 25 Anion Gap 6.0 BUN 26 H Creatinine 0.88 Est Cr Clr Drug Dosing Not Reportable Est GFR ( Amer) 110.5 Est GFR (Non-Af Amer) 95.4 BUN/Creatinine Ratio 30.0 H Glucose 188 H Calcium 8.4 L Total Bilirubin 0.4 AST 28 ALT 70 Alkaline Phosphatase 61 Total Creatine Kinase 72 CK-MB (CK-2) 1.2 CK/CKMB % Calc 1.7 Troponin I < 0.015 Total Protein 6.6 Albumin 3.2 L Globulin 3.4 Albumin/Globulin Ratio 0.9 Lipase 127 01/17/20 11:50 WBC RBC Hgb Hct MCV MCH MCHC RDW Std Deviation RDW Coeff of [place] Plt Count MPV Immature Gran % (Auto) Neut % (Auto) Lymph % (Auto) [place] % (Auto) Eos % (Auto) Baso % (Auto) Immature Gran # (Auto) Neut # (Auto) Lymph # (Auto) [place] # (Auto) Eos # (Auto) Baso # (Auto) PT INR APTT PTT Ratio Sodium Potassium Chloride Carbon Dioxide Anion Gap BUN Creatinine Est Cr Clr Drug Dosing Est GFR ( Amer) Est GFR (Non-Af Amer) BUN/Creatinine Ratio Glucose Calcium Total Bilirubin AST ALT Alkaline Phosphatase Total Creatine Kinase CK-MB (CK-2) CK/CKMB % Calc Troponin I < 0.015 Total Protein Albumin Globulin Albumin/Globulin Ratio Lipase Diagnostic Findings Head CT was performed which only demonstrated mild maxillary sinusitis Chest x-ray and chest CT did not demonstrate any notable abnormality. Echocardiogram was performed which revealed preserved LV systolic function. ECG Additional Comments: Serial EKGs were performed all of which demonstrated sinus rhythm without notable ST or T-wave changes. No significant change from prior EKGs. PG Care Time/CCT Total # of Minutes Spent Total Time Spent with Patient: Total time spent is greater than 50% in coordination of care (as documented) at patient's floor/unit and/or counseling patient: Coding Level of Care Code 32610 Office/OBS Consult Lvl 4 Diagnoses Syncope R55 CAD (coronary artery disease) I25.110 Associated angina: with unstable angina Coronary Disease-Associated Artery/Lesion type: [place] artery [place] vs. transplanted heart: [place] heart (1) CAD (coronary artery disease) Associated angina: with unstable angina Coronary Disease-Associated Artery/Lesion type: [place] artery [place] vs. transplanted heart: [place] heart Qualified Code(s): I25.110 - Atherosclerotic heart disease of [place] coronary artery with unstable angina pectoris
--- NOTE | 2020-01-17 13:05 | XCELERA ---
[id number] [id number]
[2020-01-17] MEDS ORDERED: NITROGLYCERIN SL 0.4 MG/TAB TAB SL PRN (13:13)
[2020-01-17] MEDS ORDERED: GLUCOSE 40% GEL 15 GM TUBE PO PRN (13:13)
[2020-01-17] MEDS ORDERED: DEXTROSE 50% 50 ML SYRINGE IV PRN (13:13)
[2020-01-17] MEDS ORDERED: ACETAMINOPHEN 325 MG TAB PO PRN (13:13)
[2020-01-17] MEDS ORDERED: GLUCAGON FOR INJ 1 MG VIAL SQ PRN (13:13)
[2020-01-17] MEDS ORDERED: GLUCOSE 10 TABS/TUBE PO PRN (13:13)
[2020-01-17] MEDS ORDERED: ONDANSETRON INJ 2 MG/ML 2 ML VIAL IV PRN (13:13)
[2020-01-17] MEDS ORDERED: CARBOHYDRATES FOR HYPOGLYCEMIA PO PRN (13:13)
[2020-01-17] MEDS: SODIUM CHLORIDE 0.9% 1000ML 1,000 ML IV SCH ×2 (13:48→22:15)
--- NOTE | 2020-01-17 13:57 | Emergency Department Note ---
Entered by Trish Andrews acting as a scribe for Nigel Josue MD History of Present Illness General Chief complaint: Cardiac Assessment Stated complaint: dizzy/weakness Time Seen by Provider: 01/17/20 09:14 Source: patient Mode of arrival: EMS History of Present Illness Onset (ago): hour(s) 1 Location: head (syncope) Severity: similar to prior episodes Pain Consistency: + other (episode) Quality: + other (syncope) Associated symptoms: + diaphoresis, + syncope, + weakness and + other (Positive dizziness, light headedmess. Negative abdominal pain. ) Treatments prior to arrival: aspirin and other (Nitroglycerin) The patient is a 59 year old male presenting to the Emergency Department per EMS complaining of an episode of syncope starting 1 hour ago. The patient reports that he was sitting on his couch this morning drinking coffee and suddenly became dizzy. He describes this as being light headed. He states that he suddenly became diaphoretic and his legs felt very weak. He explains that he then lost consciousness and remembers his waking him up. He notes that he doesnt know how long he was unconscious for. He adds that he experienced these symptoms once before in June 2017 when he had a heart attack but at that time he didnt lose consciousness. The patient reports that when he had his heart attack he soon after had 2 cardiac stents placed. He states that he didnt eat breakfast yet this morning but that this is normal for him. He explains that he took Nitroglycerin at home [employer] and received Baby Aspirin from EMS [employer]. The patient denies abdominal pain. Home Medications Home Medications Medication Instructions Recorded Confirmed Type ascorbic acid (vitamin C) [Vitamin 1 g PO DAILY 01/13/19 01/17/20 History C] aspirin 81 mg PO DAILY 01/13/19 01/17/20 History cholecalciferol (vitamin D3) 6,000 unit PO DAILY 01/13/19 01/17/20 History [Vitamin D3] bzrnl-fk-9-cqs-osa-ycervvg-ast 2 cap PO DAILY 01/13/19 01/17/20 History [krill oil] magnesium W-uprxdq-xocbqxibyrw 2 dose PO DAILY 01/13/19 01/17/20 History nitroglycerin [Nitrostat] 0.5 mg SUBLINGUAL UD PRN 01/13/19 01/17/20 History omega 2-mtq-hux-fish oil [Fish Oil] 2 cap PO DAILY 01/13/19 01/17/20 History kzbittbts-Y79-[id number]-SQ-wvcvwtvdlph 2 dose PO DAILY 01/13/19 01/17/20 History vitamin K2 80 mcg PO DAILY 01/13/19 01/17/20 History azithromycin 250 mg PO DAILY 01/17/20 01/17/20 History dextromethorphan-guaifenesin 1 tab PO Q12H PRN 01/17/20 01/17/20 History [Mucinex DM] Allergies Allergy/AdvReac Type Severity Reaction Status Date / Time No Known Allergies Allergy Verified 01/17/20 09:54 Past Med/Surg History Medical History CAD (coronary artery disease) Family history of premature CAD Heart attack (Resolved) History of coronary artery disease (Resolved) History of non-ST elevation myocardial infarction (NSTEMI) 06/2017 s/p PCI with EZ x [address] Alfaro History of pericarditis HLD (hyperlipidemia) Pericarditis (Resolved) Pre-diabetes Vitamin D deficiency Surgical History History of arthroscopic knee surgery History of hernia repair History of percutaneous coronary intervention Status post AC joint reconstruction Family History Other Family history of premature CAD Social History Preferred Language: Burmese Communication Ability: Effective Check Pilot Required: No Beliefs That Will Affect Care: None marital status: Current Living Situation: Spouse Feels Safe at Home: Yes Smoking Status: Never smoker Hx Alcohol Use: Yes Alcohol type: beer and wine Hx Substance Use: No Review of Systems See HPI for pertinent positives & negatives. and A total of 10 systems reviewed and were otherwise negative Physical Exam Vital Signs Vital Signs - 24 hr 01/17/20 09:09 01/17/20 09:16 01/17/20 09:19 Temperature 36.7 C Temperature Source Oral Pulse Rate 50 L 62 60 Pulse Rate from SpO2 Sensor 56 L 56 L Respiratory Rate 12 16 Respiratory Effort / Characteristics Non-Labored Respiratory Depth Normal Blood Pressure 131/80 131/80 Blood Pressure Mean 97 98 Pulse Oximetry 94 98 98 Oxygen Delivery Method Room Air Sepsis Recent Fever Within 48 Hours No Sepsis Action Taken by Nursing No Action Required 01/17/20 09:22 01/17/20 09:27 01/17/20 09:30 Temperature Temperature Source Pulse Rate 50 L 47 L Pulse Rate from SpO2 Sensor 51 L 47 L Respiratory Rate 14 14 Respiratory Effort / Characteristics Respiratory Depth Blood Pressure 115/81 108/80 Blood Pressure Mean 89 82 Pulse Oximetry 94 97 Oxygen Delivery Method Room Air Sepsis Recent Fever Within 48 Hours Sepsis Action Taken by Nursing 01/17/20 09:35 01/17/20 10:00 01/17/20 10:30 Temperature Temperature Source Oral Pulse Rate 58 L 51 L Pulse Rate from SpO2 Sensor 59 L Respiratory Rate 13 14 Respiratory Effort / Characteristics Respiratory Depth Blood Pressure 107/70 124/80 Blood Pressure Mean 77 91 Pulse Oximetry 92 Oxygen Delivery Method Sepsis Recent Fever Within 48 Hours Sepsis Action Taken by Nursing 01/17/20 11:00 Temperature Temperature Source Pulse Rate 56 L Pulse Rate from SpO2 Sensor 55 L Respiratory Rate 20 Respiratory Effort / Characteristics Respiratory Depth Blood Pressure 128/88 Blood Pressure Mean 95 Pulse Oximetry 97 Oxygen Delivery Method Sepsis Recent Fever Within 48 Hours Sepsis Action Taken by Nursing GENERAL: Awake, alert, well-appearing, in no acute distress HENT: Normocephalic, atraumatic. Oropharynx unremarkable. EYES: Normal conjunctiva. Sclera non-icteric. NECK: Supple. No nuchal rigidity. FROM. No JVD. RESPIRATORY: Clear to auscultation. CARDIAC: Regular rate, normal rhythm. Extremities warm and well perfused. Pulses equal. ABDOMEN: Soft, non-distended. No tenderness to palpation. No rebound or guarding. No masses. RECTAL: Deferred. MUSCULOSKELETAL: Chest examination reveals no tenderness. The back is symmetrical on inspection without obvious abnormality. There is no CVA tenderness to palpation. No joint edema. LOWER EXTREMITIES: Calves are equal size bilaterally and non-tender. No edema. No discoloration. NEURO: Normal sensorium. No sensory or motor deficits noted. SKIN: Diaphoretic. No rash or jaundice noted. Course Course 913: The patient was evaluated in room A2, and a complete history and physical examination were performed. 1017: I reevaluated the patient at this time. He lost consciousness again in his bed here in the Emergency Department. 1033: I discussed the patients case with Belkis Craft PA-C. Dr. [facility] will evaluate the patient for further management. 1036: I discussed the patients case with Dr. Hernandez take down sorter. He states that he will look at the patients chart. 1040: I updated the patient at this time. 1138: I spoke with Dr. Low at the patients bedside. 1140: I spoke with Dr. Hernandez at this time. Administered Medications Sodium Chloride (Nss 1000ml) 1,000 mls @ 125 mls/hr IV .Q8H KALPESH Stop: 01/18/20 05:12 Last Admin: 01/17/20 13:48 Dose: 125 mls/hr Documented by: [id number] Ioversol (Optiray 320 125ml) 118 ml IV ONCE PRN PRN Reason: Interaction Checking Stop: 01/21/20 11:59 Last Admin: 01/17/20 12:00 Dose: 118 ml Documented by: [id number] Discontinued Medications Nitroglycerin (Nitrostat) Confirm Administered Dose 0.4 mg .ROUTE .STK-MED ONE Stop: 01/17/20 11:27 Last Admin: 01/17/20 11:28 Dose: 0.4 mg Documented by: [id number] Ondansetron HCl (Zofran) 4 mg IV NOW STA Stop: 01/17/20 10:32 Last Admin: 01/17/20 10:35 Dose: 4 mg Documented by: [id number] Potassium Chloride (Klor-Con M20) 40 meq PO NOW STA Stop: 01/17/20 10:28 Last Admin: 01/17/20 10:35 Dose: 40 meq Documented by: [id number] Medical Decision Making Differential Diagnosis Differential diagnosis: Etiologies such as vasovagal event, infection, hypoglycemia, electrolyte abnormalities, cardiac sources, intracerebral event, toxicologic, neurologic, as well as others were entertained. Medical Records Attestation: I reviewed the patient's medical records. Home Medications Current Medication List: was personally reviewed by me Laboratory Data Attestation: I reviewed the patient's lab results. Result diagrams: 01/17/20 09:25 01/17/20 09:25 Lab Results 01/17/20 01/17/20 01/17/20 Range/Units 09:25 09:25 09:25 WBC 11.97 H (4.8-10.8) K/uL RBC 4.90 (4.7-6.1) M/uL Hgb 14.4 (14.0-18.0) g/dL Hct 42.2 (42-52) % MCV 86.1 (80-100) fL MCH 29.4 (25-34) pg MCHC 34.1 (32-36) g/dL RDW Std Deviation 41.2 (36.4-46.3) fL RDW Coeff of [place] 13.1 (11.5-14.5) % Plt Count 285 (130-400) K/uL MPV 9.4 (7.4-10.4) fL Immature Gran % (Auto) 1.3 % Neut % (Auto) 62.9 % Lymph % (Auto) 24.9 % [place] % (Auto) 7.7 % Eos % (Auto) 3.0 % Baso % (Auto) 0.2 % Immature Gran # (Auto) 0.16 H (0.00-0.02) K/uL Neut # (Auto) 7.53 H (1.4-6.5) K/uL Lymph # (Auto) 2.98 (1.2-3.4) K/uL [place] # (Auto) 0.92 H (0.11-0.59) K/uL Eos # (Auto) 0.36 (0-0.5) K/uL Baso # (Auto) 0.02 (0-0.2) K/uL PT 10.7 (9.0-12.0) Seconds INR 1.0 (0.9-1.1) APTT 23.1 (21.0-31.0) Seconds PTT Ratio 0.9 Sodium 140 (136-145) mmol/L Potassium 3.4 L (3.5-5.1) mmol/L Chloride 109 H (98-107) mmol/L Carbon Dioxide 25 (21-32) mmol/L Anion Gap 6.0 (3-11) BUN 26 H (7-18) mg/dl Creatinine 0.88 (0.6-1.4) mg/dl Est Cr Clr Drug Dosing Not Reportable Est GFR ( Amer) 110.5 Est GFR (Non-Af Amer) 95.4 BUN/Creatinine Ratio 30.0 H (10-20) Glucose 188 H (70-99) mg/dl Calcium 8.4 L (8.5-10.1) mg/dl Total Bilirubin 0.4 (0.2-1) mg/dl AST 28 (15-37) U/L ALT 70 (12-78) U/L Alkaline Phosphatase 61 (45-117) U/L Total Creatine Kinase 72 (39-308) U/L CK-MB (CK-2) 1.2 (0.5-3.6) ng/ml CK/CKMB % Calc 1.7 (0-3.0) Troponin I < 0.015 (0-0.045) ng/ml Total Protein 6.6 (6.4-8.2) gm/dl Albumin 3.2 L (3.4-5.0) gm/dl Globulin 3.4 (2.5-4.0) gm/dl Albumin/Globulin Ratio 0.9 (0.9-2) Lipase 127 (73-393) U/L Imaging Data Radiologist's Impression: Radiology results as stated below per my review and the radiologist's interpretation: CT head/brain wo con CT DOSE: 1314.80 mGy.cm HISTORY: Mental status change Pt c/o emesis TECHNIQUE: Multiaxial CT images of the head were performed without the use of intravenous contrast. A dose lowering technique was utilized adhering to the principles of ALARA. Comparison: None. Findings: Small mild fluid within the maxillary sinuses bilaterally. Sinuses are otherwise clear. The calvarium and skull base are intact. The ventricles and sulci are within normal limits. There is no mass, hematoma, midline shift, or acute infarct. Impression: No acute intracranial abnormality. Bilateral maxillary sinusitis. ACT 112: Negative or not required by law. The above report was generated using voice recognition software. It may contain grammatical, syntax or spelling errors. Electronically signed by: Simba Taylor M.D. 01/17/2020 12:[address] angio chest PE protocol CT DOSE: HISTORY: Chest pain. Dyspnea. PE TECHNIQUE: Multiaxial CT images of the chest were performed following the intravenous administration of contrast to evaluate the pulmonary arteries. Maximal intensity projection images were also obtained. A dose lowering technique was utilized adhering to the principles of ALARA. COMPARISON STUDY: None. FINDINGS: There is a normal caliber thoracic aorta with no evidence for dissection. There is no evidence for pulmonary embolus. No pleural effusions. No pneumothorax. The liver and spleen are unremarkable. No mediastinal or hilar lymphadenopathy. The central airways are patent. The lungs are clear. IMPRESSION: No evidence for pulmonary embolus. The lungs are clear. ACT 112: Negative or not required by law. The above report was generated using voice recognition software. It may contain grammatical, syntax or spelling errors. Electronically signed by: Simba Taylor M.D. 01/17/2020 12:38 PM XR chest 1V portable CLINICAL HISTORY: Chest Pain COMPARISON STUDY: 01/13/2019 FINDINGS: The bones soft tissues and hemidiaphragms are normal. The cardiomediastinal silhouette is normal. The lungs are clear. The pulmonary vasculature is normal. IMPRESSION: Negative chest. ACT 112: Negative or not required by law. The above report was generated using voice recognition software. It may contain grammatical, syntax or spelling errors. Electronically signed by: Simba Taylor M.D. 01/17/2020 10:00 AM ECG Data Attestation: I personally reviewed and interpreted this ECG as follows: Indication: + syncope Rate (beats per minute): 50 Rhythm: + sinus bradycardia ECG Intervals/blocks: + Normal QT-c (QT-c 413.) ECG ST segments: no ST depression and no ST elevation Additional Comments: 1032: Repeat EKG per my interpretation: Sinus bradycardia at [address] elevation. No ST depression. QT-c 413. Blood Pressure Blood Pressure Findings: Elevated blood pressure Blood Pressure Disposition: further management by hospitalist [facility] Narrative Cardiac Monitoring: An order was placed for continuous cardiac monitoring. The monitor shows a rate of 50 with sinus rhythm. This is a 59-year-old male who presents emergency department after a vasovagal episode at home. The patient reports he had a similar vasovagal episode when he had his heart attack in 2017. While in the emergency department the patient had several vasovagal episodes and therefore he was discussed with the take down sorter service who was kind enough to come and see the patient. Serial EKGs were obt ained here in the emergency department which does not show any acute change. I did discuss the case with both cardiology as well as the hospitalist service who did agree to admit the patient. Patient was given nitro here in the emergency department along with a fluid bolus x2. Patient does not have an elevation in his troponin. His white blood cell count is 11. Impression & Plan Vasovagal episode Discharge Plan Visit Data *Final* Discharge Date/Time: 01/17/20 12:58 Chief Complaint: Cardiac Assessment Stated Complaint: dizzy/weakness ED Provider: Nigel Josue Discharge Problem: Vasovagal episode Patient Disposition: Admitted As Inpatient Discharge Instructions Interventions: ED Discharge Assessment Last Done: 01/17/20 12:58 The scribe's documentation has been prepared under my direction and personally reviewed by me in its entirety. I confirm that the note above accurately reflects all work, treatment, procedures, and medical decision making performed by me.
--- NOTE | 2020-01-17 16:52 | Electrocardiogram Report ---
Test Reason : Blood Pressure : / mmHG Vent. Rate : 050 BPM Atrial Rate : 050 BPM P-R Int : 162 ms QRS Dur : 098 ms QT Int : 454 ms P-R-T Axes : 047 -18 -05 degrees QTc Int : 413 ms Sinus bradycardia Abnormal ECG When compared with ECG of 14-JAN-2019 08:16, No significant change was found Confirmed by Randall Hernandez ([id number]) on 01/17/2020 4:52:33 PM Referred By: REFERRED SELF Confirmed By:Mukund Hernandez
--- NOTE | 2020-01-17 16:54 | Electrocardiogram Report ---
Test Reason : Blood Pressure : / mmHG Vent. Rate : 055 BPM Atrial Rate : 055 BPM P-R Int : 148 ms QRS Dur : 090 ms QT Int : 426 ms P-R-T Axes : -10 -18 -16 degrees QTc Int : 407 ms Sinus bradycardia Abnormal ECG When compared with ECG of 17-JAN-2020 10:32, (unconfirmed) No significant change was found Confirmed by aRndall Hernandez ([id number]) on 01/17/2020 4:53:42 PM Referred By: REFERRED SELF Confirmed By:Mukund Hernandez
[2020-01-18 07:25] LABS: BUN Creatinine Ratio 16.6 (10-20); Blood Urea Nitrogen 15 mg/dl (7-18); Calcium 8.3 mg/dl (8.5-10.1); Carbon Dioxide 28 mmol/L (21-32); Chloride 109 mmol/L (98-107); Chol HDL Ratio 5; Cholesterol 209 mg/dl (0-200); Est GFR (Non-African American) 94.9; Glucose 99 mg/dl (70-99); HDL Cholesterol 46 mg/dl; LDL Cholesterol Calculated 130 mg/dl; Potassium 4.5 mmol/L (3.5-5.1); Sodium 140 mmol/L (136-145); Triglycerides 167 mg/dl (0-150); VLDL Cholesterol 33 mg/dl
[2020-01-18 08:51] LABS: Estimated Average Glucose 137 mg/dl; Hemoglobin A1C 6.4 % (4.5-5.6)
[2020-01-18] MEDS ORDERED: AZITHROMYCIN 250 MG TAB PO SCH (09:00)
[2020-01-18] MEDS ORDERED: ASPIRIN 81 MG ECTAB PO SCH (09:00)
[2020-01-18] MEDS ORDERED: CHOLECALCIFEROL 1,000 UNITS 25 MCG TAB PO SCH (09:00)
--- NOTE | 2020-01-18 10:29 | Electrocardiogram Report ---
Test Reason : Blood Pressure : / mmHG Vent. Rate : 052 BPM Atrial Rate : 052 BPM P-R Int : 154 ms QRS Dur : 092 ms QT Int : 442 ms P-R-T Axes : 050 -12 -01 degrees QTc Int : 411 ms Sinus bradycardia Abnormal ECG When compared with ECG of 17-JAN-2020 11:39, (unconfirmed) No significant change was found Confirmed by Randall Hernandez ([id number]) on 01/18/2020 10:29:21 AM Referred By: REFERRED SELF Confirmed By:Mukund Hernandez
--- NOTE | 2020-01-18 10:35 | Electrocardiogram Report ---
Test Reason : Blood Pressure : / mmHG Vent. Rate : 050 BPM Atrial Rate : 050 BPM P-R Int : 154 ms QRS Dur : 092 ms QT Int : 454 ms P-R-T Axes : 003 -19 -13 degrees QTc Int : 413 ms Sinus bradycardia Abnormal ECG When compared with ECG of 17-JAN-2020 09:16, No significant change was found Confirmed by Randall Hernandez ([id number]) on 01/18/2020 10:35:06 AM Referred By: REFERRED SELF Confirmed By:Mukund Hernandez
--- NOTE | 2020-01-18 10:52 | Cardiology Progress Note ---
Date of Service January 18, 2020 Assessment & Plan (1) Syncope: 1. Syncope 2. Sinus bradycardia 3. Multivessel coronary artery disease post PCI to LAD, RCA 2017 4. Dyslipidemia Description of event sounds to be vagal in nature. No evidence of ACS. LV function unchanged. No clear trigger for possible vagal episode. Suspicion for new hemodynamically significant CAD is relatively low but in the setting of prior advanced multivessel disease with minimal proceeding symptoms feel reasonable to repeat stress test at some point. Plan for treadmill SPECT. This can be done as an outpatient. Otherwise continue aspirin. Further discussion regarding lipid management as an outpatient. Okay with discharge today and close cardiology follow-up. Admission and Anticipated Discharge Date Admission Date: January 17, 2020 Subjective Mr. Vaca is a 59-year-old man with a history of multivessel coronary artery disease post multivessel PCI in 2017 readmitted yesterday following syncopal episode. Later had presyncopal event in emergency department with recorded heart rate down to 29. Prior to initial event reported feeling hot, flushed, sweaty. Denied chest pain, palpitation. Has been dealing with prolonged URI symptoms. Recently treated with steroids, azithromycin. Work-up to date remarkable for serial EKG showing sinus bradycardia with no dynamic ST changes. Negative troponin x4. Normal proBNP. Unremarkable head CT, chest CTA and chest x-ray. Telemetry reviewed and aside from sinus bradycardia no additional events. Patient feeling well today. Denies chest pain. Denies recurrent presyncopal symptoms. No other new concerns. Review of Systems Review of Systems: All systems reviewed & are unremarkable except as noted in HPI & below Physical Exam Physical Exam: General: Comfortable, no acute distress HEENT: Sclerae anicteric, mucous membranes moist Lungs: Clear to auscultation bilaterally, no rhonchi or wheezes Cardiac: Regular rate and rhythm, no murmurs. No JVD. Abdomen: Soft, nontender, nondistended, positive bowel sounds. Extremities: Warm, well perfused, no edema. 2+ radial pulses Skin: No rashes or lesions. Neuro: Nonfocal Psych: Alert orient x3, normal affect and mood Results & Data ([facility]) Vital Signs (Past 12 Hours) Vital Signs Temp Pulse Pulse Resp BP BP Pulse Ox 01/18/20 07:21 98.1 F 47 L 18 129/76 93 01/18/20 04:01 97.7 F 50 L 16 116/73 95 01/17/20 23:09 98.4 F 47 L 16 122/70 91 PG Care Time/CCT Total # of Minutes Spent Total Time Spent with Patient: Total time spent is greater than 50% in coordination of care (as documented) at patient's floor/unit and/or counseling patient: Coding Level of Care Code 53768 Subseq Hosp Care Lvl 3 Diagnoses Syncope R55
[2020-01-18] MEDS ORDERED: ATORVASTATIN 40 MG TAB PO ONE (14:10)
--- NOTE | 2020-01-18 14:20 | Hospitalist Progress Note ---
Date of Service January 18, 2020 Assessment & Plan (1) Syncope: Symptom has completely resolved, with known recurrence' Presented in the ER with complaint of dizzy spell, with tubes of feeling flushed sweaty nauseous Was found to be bradycardic in the ER, No EKG changes suggestive for acute ischemia, echocardiogram shows no wall motion abnormality Patient very likely had a vasovagal episode, possible due to upper URI symptoms This morning patient feels fine, vitals stable, no chest pain, no dizzy spell lightheadedness Appreciate input from cardiology Will be discharged home today, Outpatient cardiac stress test for further ischemia work-up (2) Diaphoresis: Very likely secondary to vasovagal episode Patient was completely symptom-free since admission, Feels fine no dizzy spells lightheadedness no nausea, no diaphoresis Resented episode of presyncopal symptoms including lightheadedness, diaphoresis and nausea and reported syncope for several seconds witnessed by . Cardiac work-up has been negative for any acute cardiac event or cardiac ischemia Patient input from cardiology, stable to be discharged home outpatient cardiac stress test (3) Dehydration: Possible secondary to recent upper respiratory symptoms Leading him to vasovagal syncope, Given IV hydration, clinically feels better, vitals stable (4) Hypokalemia: Possible secondary to poor p.o. intake, no reports of nausea vomiting diarrhea Replaced (5) CAD (coronary artery disease): hx of NSTEMI and anterior PA 07/17/2017 status post mid LAD EZ and staged mid RCA EZ 07/18/2017 Continue on aspirin, not on beta-homa because of the baseline bradycardia Fasting lipid profile shows hyperlipidemia with LDL 130, given his history of coronary artery disease goal LDL should be less than 70, patient started with high intensity statin Lipitor 40 mg daily Repeat fasting lipid panel in 6 months (6) Sinus bradycardia: pt baseline HR 50-60 Not on any beta-homa, No sinus pause noted (7) Pre-diabetes: Last A1c 5.9 11/2018 (8) Vitamin D deficiency: Continue vitamin D daily (9) DVT prophylaxis: Low risk, SCD and teds, patient is encouraged to ambulate Stable to be discharged home, family physician follow-up with Dr. Bustamante Admission and Anticipated Discharge Date Admission Date: January 17, 2020 Subjective Patient reports of feeling fine, no complaint of dizzy spell lightheadedness No chest pain cough or dyspnea on exertion Evaluated by cardiology earlier, possible episode of dizzy spell due to vasovagal episode/benign pathology Stable to be discharged home, outpatient cardiac stress test will be scheduled Review of Systems Review of Systems: All systems reviewed & are unremarkable except as noted in HPI & below Constitutional: no fever and no chills Cardiovascular: no chest pain, no chest pain at rest, no dyspnea, no dyspnea on exertion, no orthopnea, no lightheadedness, no syncope and no problem reported Physical Exam Physical Exam: General: Comfortable, no acute distress HEENT: Sclerae anicteric, mucous membranes moist Lungs: Clear to auscultation bilaterally, no rhonchi or wheezes Cardiac: Regular rate and rhythm, no murmurs. No JVD. Abdomen: Soft, nontender, nondistended, positive bowel sounds. Extremities: Warm, well perfused, no edema. 2+ radial pulses Skin: No rashes or lesions. Neuro: Nonfocal Psych: Alert orient x3, normal affect and mood Results & Data ([facility]) Vital Signs (Past 12 Hours) Vital Signs Temp Pulse Pulse Resp BP BP Pulse Ox 01/18/20 11:03 36.8 C 59 L 20 142/78 H 95 01/18/20 07:21 36.7 C 47 L 18 129/76 93 01/18/20 04:01 36.5 C 50 L 16 116/73 95 (1) CAD (coronary artery disease) Coronary Disease-Associated Artery/Lesion type: [place] artery [place] vs. t ransplanted heart: [place] heart Associated angina: with unstable angina Qualified Code(s): I25.110 - Atherosclerotic heart disease of [place] coronary artery with unstable angina pectoris
--- NOTE | 2020-01-18 14:25 | Discharge Summary ---
Date of Service January 18, 2020 Admission HPI Per Admitting Provider This is a 59-year-old male who has significant PMH of CAD with history of PCI 06/2017 EZ to mid LAD and mid RCA, HLD, prediabetes, vitamin D deficiency who presents to ED secondary to syncopal episode that occurred at approximately 750AM. He was sitting on the couch after he had woken up at approximately 5 AM. He took his morning meds which includes a baby aspirin, vitamins and day 4 of 5 of azithromycin at approximately 7:40 AM. He was drinking his second cup of black coffee when at approximately 7:50 AM he became very lightheaded, diaphoretic, nauseated and feeling like he could pass out. who was at bedside witnessed the event and states, "his head went down he passed out and then his head went back and I was able to get him to come to with verbal stimulation." She feels he was out for several seconds. During this event he denied any nenita chest pain, palpitations, shortness of breath, emesis. He states this episode is very similar to when he presented in June 2017 when he required cardiac cath and stent placement. He asked his to fetch him nitro postevent and he took 2 nitro. He felt unchanged. He arrived via EMS and is felt at his baseline since he has been here. He did have one episode during the ED for approximately 5 minutes where he felt nauseous and lightheaded again but this easily passed. Over the past 6 weeks he has been fighting a viral URI and cough which has been improving. Actually 2 weeks ago he completed a course of Medrol Dosepak. 01/14 he was placed on azithromycin as well as guaifenesin dextromethorphan. He has 1 more dose of his azithromycin. He states he has never taking this before. He further admits ever since his stent placement he has been fatigued requiring afternoon naps. denies any excessive snoring or apneic witnessed episodes. Otherwise he denies any fever, chills, sweats, chest pain, palpitations, hemoptysis, nausea, vomiting, abdominal pain, changes bowel or urinary habits. His appetite is otherwise well and denies any significant weight gain or loss. He is very active and participates in physical activity 5-6 times a week including 30 to 60 minutes of cardio including elliptical and bike. He denies any smoking use and occasional alcohol use 2-3 times a week 1 drink. Last drink was 3 mixed drinks last evening at the [facility]. In ED patient remained hemodynamically stable. Initial EKG revealed sinus bradycardia 50 bpm, T wave inversion in lead III unchanged from prior EKG. Initial troponin WNL, mild elevation BUN 26, creatinine 0.88, glucose 188, K3.4, H&H stable at 14.4 and 42.2, WBC 11.97, lipase WNL. Chest x-ray negative for acute cardiopulmonary abnormality. He received potassium replacement and IV Zofran while in ED. Principal Diagnosis Dizzy spell, possible vasovagal attack Discharge Exam GENERAL: No sign of distress, HEENT: Sclera nonicteric, pink-purple bilateral equal reactive to light extraocular muscle intact Normal oral mucosa, neck: No JVD, no thyromegaly, trachea midline Lungs: Clear to auscultate, no wheeze or rales Cardiovascular: Regular S1 and S2, no murmur or gallop, no JVD, no lower extremity edema Abdomen: Soft, nontender, bowel sounds active, no hepatosplenomegaly Extremities: No rash or deformity, normal joint, Neuro: No focal neurological deficit, no dysarthria, no facial droop Psych: Alert awake oriented x3: Euthymic Skin: No rash LYMPH NODES: No cervical lymphadenopathy Discharge Data Allergies Allergy/AdvReac Type Severity Reaction Status Date / Time No Known Allergies Allergy Verified 01/17/20 09:54 Consultations 01/17/20 10:37 Consult Cardiology Stat ED Decision to Admit Stat 01/17/20 13:13 Consult Cardiology Routine Ordered Studies 01/17/20 11:45 CT angio chest PE protocol Stat CT head/brain wo con Stat Hospital Course (1) Syncope: Symptom has completely resolved, with known recurrence' Presented in the ER with complaint of dizzy spell, with tubes of feeling flushed sweaty nauseous Was found to be bradycardic in the ER, No EKG changes suggestive for acute ischemia, echocardiogram shows no wall motion abnormality Patient very likely had a vasovagal episode, possible due to upper URI symptoms This morning patient feels fine, vitals stable, no chest pain, no dizzy spell lightheadedness Appreciate input from cardiology Will be discharged home today, Outpatient cardiac stress test for further ischemia work-up (2) Diaphoresis: Very likely secondary to vasovagal episode Patient was completely symptom-free since admission, Feels fine no dizzy spells lightheadedness no nausea, no diaphoresis Resented episode of presyncopal symptoms including lightheadedness, diaphoresis and nausea and reported syncope for several seconds witnessed by . Cardiac work-up has been negative for any acute cardiac event or cardiac ischemia Patient input from cardiology, stable to be discharged home outpatient cardiac stress test (3) Dehydration: Possible secondary to recent upper respiratory symptoms Leading him to vasovagal syncope, Given IV hydration, clinically feels better, vitals stable (4) Hypokalemia: Possible secondary to poor p.o. intake, no reports of nausea vomiting diarrhea Replaced (5) CAD (coronary artery disease): hx of NSTEMI and anterior OH 07/17/2017 status post mid LAD EZ and staged mid RCA EZ 07/18/2017 Continue on aspirin, not on beta-homa because of the baseline bradycardia Fasting lipid profile shows hyperlipidemia with LDL 130, given his history of coronary artery disease goal LDL should be less than 70, patient started with high intensity statin Lipitor 40 mg daily Repeat fasting lipid panel in 6 months (6) Sinus bradycardia: pt baseline HR 50-60 Not on any beta-homa, No sinus pause noted (7) Pre-diabetes: Last A1c 5.9 11/2018 (8) Vitamin D deficiency: Continue vitamin D daily (9) DVT prophylaxis: Low risk, SCD and teds, patient is encouraged to ambulate Stable to be discharged home, family physician follow-up with Dr. Bustamante Total Time Total Time Spent Total Time Spent (In Minutes): Approximately 35 minutes Total Time Includes: Examination of the Patient, Discharge Planning and Medication Reconciliation Discharge Plan Discharge Items Patient Disposition: Home - Self-Care Reason For Visit: DIZZINESS,SYNCOPAL EPISODE, ANGINAL EQUIVALENT Discharge Diagnosis: Dizzy spell, possible vasovagal attack Activity: Resume your previous activity Non-emergency contact: Primary Care Provider Call non-emergency contact if: you have any medication questions Follow-up/Referrals: Etienne Hernandez MD [Physician] - (Follow-up in cardiology office in 2-3 weeks) Timur Bustamante DO [Primary Care Provider] - 01/25/20 10:55 am Diet: Heart Healthy Addtl Attending Provider Instructions: Follow-up with cardiology in 2-3 weeks, will need outpatient cardiac stress test Started on atorvastatin, cholesterol lowering drug: Take 40 mg / 1 tablet daily Repeat fasting lipid level in 6-8 months, your goal LDL (bad cholesterol )should be less than 70 LDL on 01/18/2020: 130 Pending Studies at Discharge: No Stand-Alone Forms: My [facility] SENSIM[employer], Smoking Cessation Medications and DC Order Prescriptions: New atorvastatin 40 mg tablet 40 mg PO DAILY Qty: 30 RF: 3 Continued aspirin 81 mg Tablet,Delayed Release (Dr/Ec) 81 mg PO DAILY RF: 0 nitroglycerin [Nitrostat] 0.4 mg Tablet, Sublingual 0.5 mg Sublingual UD PRN (Reason: Chest Pain) RF: 0 ascorbic acid (vitamin C) [Vitamin C] 1,000 mg Tablet 1 g PO DAILY RF: 0 cholecalciferol (vitamin D3) [Vitamin D3] 2,000 unit Tablet 6,000 unit PO DAILY RF: 0 omega 5-igl-bzw-fish oil [Fish Oil] 1,000 mg (120 mg-180 mg) Capsule 2 cap PO DAILY RF: 0 rpejm-dm-1-zqe-mom-uuapxrj-ast [krill oil] 1,059-345-26-80 mg Capsule 2 cap PO DAILY RF: 0 vitamin K2 40 mcg Tablet 80 mcg PO DAILY RF: 0 ulrwhoxbe-A56-[id number]-NN-dzgjanbkuit 200-5-0.8-400 mg Capsule 2 dose PO DAILY RF: 0 magnesium G-khhnto-tiqtuzhsrki 42 mg (500 mg)- 250 mg Tablet Extended Release 2 dose PO DAILY RF: 0 Mucinex DM 30-600 mg Tablet Extended Release 12 Hr 1 tab PO Q12H PRN (Reason: Cough) RF: 0 Discontinued azithromycin 250 mg Tablet 250 mg PO DAILY RF: 0 Discharge Orders: Discharge Order (Routine); Ordered 01/18/20 Ordered By: Diane Lewis/Other Patient Handouts: Prediabetes, Cholesterol Control, CAD, Cholesterol Lifestyle Changes, Cholesterol Control Meds, A1C, LDL Cholesterol Admission Data Admit Date/Time: 01/17/20 11:17 Attending Provider: Diane Chaney Admit Provider: Kirk Low Primary Care Provider: Timur Bustamante Other Providers: Etienne Hernandez ; Diane Chaney Other Interventions: Discharge Summary Assessment (RN) Last Done: 01/18/20 14:52
== END 2020-01-18 16:13 | disposition home or self-care (01) ==
LOC: ED 09:11 → 2E 09:11 → SUATTDRO 11:17 → 2E 12:58

== ENCOUNTER 2023-10-02 13:19 | Observation (INO) ==
--- NOTE | 2023-10-02 13:28 | Emergency Department Note ---
Impression & Plan Chest pain, Syncope ED Provider Note NAME: BUDDY DIAZ AGE: 62 SEX: M : 1960 ARRIVES VIA: Ambulance INFORMANT: Patient, EMS ED PROVIDER(S): Godwin Barber DO CHIEF COMPLAINT: Chest pain HPI: The patient is a 62-year-old male who presented to the emergency department for an evaluation of chest pain. The patient states he was working at his desk when he had an acute onset of a sharp pain into his left breast. The patient states he has no shortness of breath. The pain was not very long and only lasted a few seconds. He has a history of coronary artery disease and thought he was having a heart attack. He took aspirin as well as nitroglycerin. He then had a syncopal episode. When he awoke he called 911 and presented to the emergency department via ambulance. The patient denies having any chest pain at this time. He denies having any fever or cough. He denies having any leg swelling or leg pain. ROS: See above HPI for pertinent positives & negatives. A total of 10 systems reviewed and were otherwise negative. PAST MEDICAL HISTORY: See Below PAST SURGICAL HISTORY: See Below FAMILY HISTORY: See Below SOCIAL HISTORY: See Below HOME MEDICATIONS: See Below ALLERGIES: See Below VITALS: See Below PHYSICAL EXAMINATION: GENERAL: Patient is awake alert in no acute distress patient is resting comfortably and showing no signs of anxiety EYES: The conjunctivae are clear. The pupils are round and reactive. EARS, NOSE, MOUTH AND THROAT: The nose is without any evidence of any deformity. NECK: The neck is nontender and supple. RESPIRATORY: Normal respiratory effort is noted there is no evidence of wheezing rhonchi or rales CARDIOVASCULAR: Regular rate and rhythm noted there no murmurs rubs or gallops normal S1 normal S2. GASTROINTESTINAL: The abdomen is soft. Abdomen is nontender. MUSCULOSKELETAL/EXTREMITIES: There is no evidence of gross deformity full range of motion is noted in the hips and shoulders. SKIN: There is no obvious evidence of any rash. There are no petechiae, pallor or cyanosis noted. NEUROLOGIC: Patient is awake alert and oriented x3 MEDICAL DECISION MAKING: The patient is a 62-year-old male who presented to the emergency department for an evaluation of chest pain. The patient arrived via ambulance. He describes a sharp chest pain that he described as a shocking sensation in his left anterior chest. The patient did not have ongoing pain. He was treated with nitroglycerin prior to arrival and had a syncopal episode. I discussed the patient's laboratory and radiographic studies with him. I also discussed the limitations of the emergency department work-up for chest pain with him. Ultimately the patient was not comfortable with an outpatient work-up and given his risk factors and previous hospital course he may be a better candidate for inpatient stress testing. I discussed his condition with his primary supervisor lens generating as well [facility] They have agreed to evaluate the patient for further management and disposition. Triage Nursing notes reviewed. Prior medical records reviewed Vital Signs: reviewed and remarkable for no significant abnormalities Differential diagnosis: Cardiac ischemia, aortic dissection, pulmonary embolism, pneumothorax, pneumonia, pericarditis, myocarditis, esophageal rupture, GERD, cholecystitis, pancreatitis, musculoskeletal, as well as other pathologies. ER treatment provided: See below Diagnostics interpreted by me: ECG: EKG was obtained in the emergency department. My interpretation is normal sinus rhythm at [address] depressions were noted. There is no PVCs. There is no acute ST segment elevation. This was compared to a tracing from July 10, 2020. No changes were noted. Prehospital EKG was obtained in the emergency department. And reviewed. My interpretation is sinus rhythm at [address] depressions were noted. Inferior Q waves were noted. This compares similar to the tracing obtained in the emergency department Cardiac Monitoring: An order was placed for continuous cardiac monitoring. The monitor shows a rate of 70 bpm with sinus rhythm Laboratory studies: As stated above and show below. Imaging studies: See below. Radiographic imaging was reviewed by myself Consultation(s): I discussed this case with Dr. Alfaro who is the patient's primary supervisor lens generating. I discussed this case with Bushra who is [facility] Past Med/Surg History Medical History Family history of premature CAD History of pericarditis Pre-diabetes Vitamin D deficiency History of non-ST elevation myocardial infarction (NSTEMI) 06/2017 s/p PCI with EZ x [address] 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 [employer] Brick Required: No Beliefs That Will Affect Care: None marital status: Current Living Situation: Spouse Feels Safe at Home: Yes Assistive Devices: Glasses Allergies Allergies Allergy/AdvReac Type Severity Reaction Status Date / Time No Known Allergies Allergy Verified 10/02/23 15:33 Home Meds Home Medications Medication Instructions Recorded Confirmed ascorbic acid (vitamin C) 1,000 mg 1,600 mg PO DAILY 01/13/19 10/02/23 tablet (Vitamin C) cholecalciferol (vitamin D3) 50 3,000 unit PO QAM 01/13/19 10/02/23 mcg (2,000 unit) tablet (Vitamin D3) krill 1,000 mg-omega-3 170 mg-dha 1 cap PO QAM 01/13/19 10/02/23 50 mg-epa 80 mf-bsqtys-ozdar capsule (krill oil) magnesium 42 mg(magnesium L-threo 1 dose PO AMPM 01/13/19 10/02/23 500 mg)-niacinamide 250 mg tablet,ER nitroglycerin 0.4 mg sublingual 0.5 mg sublingual UD PRN Chest Pain 01/13/19 10/02/23 tablet (Nitrostat) atorvastatin 40 mg tablet 40 mg PO QAM 07/10/20 10/02/23 fluticasone propionate 50 1 spray intranasal DAILY PRN Nasal 12/03/22 10/02/23 mcg/actuation nasal Congestion spray,suspension Curcumin, Turmeric Root 1 tab PO DAILY 10/02/23 10/02/23 Molecular Hydrogen 1 tab PO DAILY 10/02/23 10/02/23 Super Beets 3 tab PO DAILY 10/02/23 10/02/23 Ubiquinol Cap 100 mg PO DAILY 10/02/23 10/02/23 Vitamin K2 Mk7 100 mg PO DAILY 10/02/23 10/02/23 quercetin 500 mg capsule 0 mg PO DAILY 10/02/23 10/02/23 soybean, fermented 50 mg capsule 0 mg PO DAILY 10/02/23 10/02/23 (Nattokinase) zinc 15 mg tablet 15 mg PO DAILY 10/02/23 10/02/23 Results & Data (ED) Vital Signs Vital Signs - 24 hr 10/02/23 13:04 10/02/23 13:34 10/02/23 13:35 Temperature 36.8 C Temperature Source Oral Pulse Rate 98 H 84 Pulse Rate [Apical] Pulse Rate from SpO2 Sensor 85 Respiratory Rate 18 14 Respiratory Effort / Characteristics Respiratory Depth Respiratory Pattern Blood Pressure 124/79 124/79 Blood Pressure [Right Arm] Blood Pressure Mean 94 93 Blood Pressure Mean [Right Arm] Blood Pressure Position Lying Blood Pressure Position [Right Arm] Pulse Oximetry 95 95 Oxygen Delivery Method Room Air Sepsis Recent Fever Within 48 Hours No Sepsis New/Unexplained Change in Mental Status No Sepsis Action Taken by Nursing No Action Required 10/02/23 13:40 10/02/23 13:50 10/02/23 13:53 Temperature Temperature Source Pulse Rate 78 79 76 Pulse Rate [Apical] Pulse Rate from SpO2 Sensor 78 77 Respiratory Rate 16 18 Respiratory Effort / Characteristics Respiratory Depth Respiratory Pattern Blood Pressure Blood Pressure [Right Arm] Blood Pressure Mean Blood Pressure Mean [Right Arm] Blood Pressure Position Blood Pressure Position [Right Arm] Pulse Oximetry 95 94 Oxygen Delivery Method Sepsis Recent Fever Within 48 Hours Sepsis New/Unexplained Change in Mental Status Sepsis Action Taken by Nursing 10/02/23 14:00 10/02/23 14:10 10/02/23 14:12 Temperature Temperature Source Pulse Rate 70 82 87 Pulse Rate [Apical] Pulse Rate from SpO2 Sensor 72 83 86 Respiratory Rate 17 17 14 Respiratory Effort / Characteristics Respiratory Depth Respiratory Pattern Blood Pressure 121/71 Blood Pressure [Right Arm] Blood Pressure Mean 87 Blood Pressure Mean [Right Arm] Blood Pressure Position Blood Pressure Position [Right Arm] Pulse Oximetry 93 94 93 Oxygen Delivery Method Sepsis Recent Fever Within 48 Hours Sepsis New/Unexplained Change in Mental Status Sepsis Action Taken by Nursing 10/02/23 14:12 10/02/23 15:19 10/02/23 17:09 Temperature Temperature Source Pulse Rate 77 Pulse Rate [Apical] 70 Pulse Rate from SpO2 Sensor Respiratory Rate 18 Respiratory Effort / Characteristics Non-Labored Spontaneous Respiratory Depth Normal Respiratory Pattern Regular Blood Pressure 121/71 Blood Pressure [Right Arm] 137/81 Blood Pressure Mean 86 Blood Pressure Mean [Right Arm] 99 Blood Pressure Position Blood Pressure Position [Right Arm] Lying Pulse Oximetry 93 Oxygen Delivery Method Room Air Sepsis Recent Fever Within 48 Hours Sepsis New/Unexplained Change in Mental Status Sepsis Action Taken by [facility] Medications Current Medication List: was personally reviewed by me Laboratory Data Attestation: I reviewed the patient's lab results. 10/02/23 13:40 10/02/23 15:13 Lab Results 10/02/23 10/02/23 Range/Units 13:40 15:13 WBC 9.60 (4.8-10.8) K/ul RBC 5.22 (4.70-6.10) M/uL Hgb 15.4 (14.0-18.0) g/dl Hct 45.1 (42.0-52.0) % MCV 86.4 (80.0-100.0) fL MCH 29.5 (25.0-34.0) pg MCHC 34.1 (32.0-36.0) g/dL RDW Std Deviation 39.4 (36.4-46.3) fL RDW Coeff of [place] 12.5 (11.5-14.5) % Plt Count 254 (130-400) K/uL MPV 9.1 L (9.4-12.4) fL Immature Gran % (Auto) 0.4 % Neut % (Auto) 69.4 % Lymph % (Auto) 20.5 % Maury % (Auto) 8.0 % Eos % (Auto) 1.3 % Baso % (Auto) 0.4 % Neut # (Auto) 6.66 H (1.40-6.50) K/uL Lymph # (Auto) 1.97 (1.20-3.40) K/uL Maury # (Auto) 0.77 H (0.11-0.59) K/uL Eos # (Auto) 0.12 (0.00-0.50) K/uL Baso # (Auto) 0.04 (0.00-0.20) K/uL Immature Gran # (Auto) 0.04 (0.01-0.20) K/uL PT 11.0 (9.0-12.0) Seconds INR 1.0 (0.9-1.1) APTT 23.4 (21.0-31.0) Seconds PTT Ratio 0.8 Sodium TNP 139 Potassium TNP 3.9 Chloride 109 H (98-107) mmol/L Carbon Dioxide 25 (21-32) mmol/L Anion Gap TNP BUN 12 (6-23) mg/dl Creatinine 0.73 (0.6-1.4) mg/dl Est Cr Clr Drug Dosing 126.1 ml/min Est GFR ( Amer) 116.9 ml/min Est GFR (Non-Af Amer) 100.8 ml/min BUN/Creatinine Ratio 16.4 (10-20) Glucose 142 H (70-99(Fasting)) mg/dl Calcium 8.3 L (8.6-10.3) mg/dl Total Bilirubin 0.6 (0.2-1.0) mg/dl AST TNP 30 ALT 54 H (7-52) U/L Alkaline Phosphatase 49 (34-104) U/L Troponin I High Sens 7.7 (0-20) pg/ml Total Protein 6.7 (6.0-8.3) gm/dl Albumin 4.2 (3.4-5.0) gm/dl Globulin 2.5 (2.5-4.0) gm/dl Albumin/Globulin Ratio 1.7 (0.9-2) Lipase 26 (11-82) U/L Imaging Data Attestation: I personally reviewed and interpreted this imaging study as follows: My Impression: 1 view chest x-ray was obtained in the emergency department. My interpretation is no free air or definite infiltrate, final report below Radiologist's Impression: Chest X-Ray 10/02/23 13:25 XR chest 1V portable HISTORY: 62 years-old Male Chest pain, nonspecific COMPARISON: 01/17/2020 TECHNIQUE: AP view of the chest FINDINGS: Cardiac silhouette is enlarged. Mild right hemidiaphragmatic elevation. No pneumothorax, pleural effusion, airspace consolidation or pulmonary edema. Degenerative changes of the shoulders and spine. Unchanged widening of the right AC joint. IMPRESSION: Cardiomegaly without acute process. ACT 112: Negative or not required by law. The above report was generated using voice recognition software. It may contain grammatical, syntax or spelling errors. Electronically signed by: Armando Patel M.D. 10/02/2023 2:02 PM Discharge Plan Visit Data Chief Complaint: Chest Pain Stated Complaint: chest pain ED Provider: Godwin Barber Discharge Problem: Chest pain, Syncope Patient Disposition: Being Evaluated by Hospitalist Forms Stand Alone Forms: My [facility] Prescriptions Prescriptions: No Action fluticasone propionate 50 mcg/actuation spray,suspension 1 spray intranasal DAILY PRN (Reason: Nasal Congestion) Rx Instructions: administer into each nostril nitroglycerin [Nitrostat] 0.4 mg Tablet, Sublingual 0.5 mg Sublingual UD PRN (Reason: Chest Pain) ascorbic acid (vitamin C) [Vitamin C] 1,000 mg Tablet 1,600 mg PO DAILY Rx Instructions: liposomal vitamin c cholecalciferol (vitamin D3) [Vitamin D3] 2,000 unit Tablet 3,000 unit PO QAM krill oil 1,236-562-02-80 mg Capsule 1 cap PO QAM magnesium L-drpshl-ojwsvuwdpka 42 mg (500 mg)- 250 mg Tablet Extended Release 1 dose PO AMPM atorvastatin 40 mg tablet 40 mg PO QAM zinc 15 mg Tablet 15 mg PO DAILY Nattokinase 50 mg Capsule 0 mg PO DAILY quercetin 500 mg Capsule 0 mg PO DAILY Curcumin, Turmeric Root 1 tab PO DAILY Molecular Hydrogen 1 tab PO DAILY Super Beets 3 tab PO DAILY Ubiquinol Cap 100 mg PO DAILY Vitamin K2 Mk7 100 mg PO DAILY Referrals Referrals: iTmur Bustamante DO [Primary Care Provider] - Discharge Problem: Chest pain Qualifiers: Chest pain type: unspecified Qualified Code(s): R07.9 - Chest pain, unspecified Syncope Qualifiers: Syncope type: unspecified Qualified Code(s): R55 - Syncope and collapse
[2023-10-02 13:54] LABS: Basophils # (auto) 0.04 K/uL (0.00-0.20); Basophils % (auto) 0.4 %; Eosinophils # (auto) 0.12 K/uL (0.00-0.50); Eosinophils % (auto) 1.3 %; Hematocrit (blood only) 45.1 % (42.0-52.0); Hemoglobin 15.4 g/dl (14.0-18.0); Immature Granulocytes # (auto) 0.04 K/uL (0.01-0.20); Immature Granulocytes % (auto) 0.4 %; Lymphocytes # (auto) 1.97 K/uL (1.20-3.40); Lymphocytes % (auto) 20.5 %; Mean Corpuscular Hemoglobin 29.5 pg (25.0-34.0); Mean Corpuscular Hgb Conc 34.1 g/dL (32.0-36.0); Mean Corpuscular Volume 86.4 fL (80.0-100.0); Mean Platelet Volume 9.1 fL (9.4-12.4); Monocytes # (auto) 0.77 K/uL (0.11-0.59); Neutrophils # (auto) 6.66 K/uL (1.40-6.50); Neutrophils % (auto) 69.4 %; Platelet Count 254 K/uL (130-400); RDW Coefficient of Variation 12.5 % (11.5-14.5); RDW Standard Deviation 39.4 fL (36.4-46.3); Red Blood Count 5.22 M/uL (4.70-6.10)
--- NOTE | 2023-10-02 14:03 | XRay Report ---
XR chest 1V portable HISTORY: 62 years-old Male Chest pain, nonspecific COMPARISON: 01/17/2020 TECHNIQUE: AP view of the chest FINDINGS: Cardiac silhouette is enlarged. Mild right hemidiaphragmatic elevation. No pneumothorax, pleural effu ivette, airspace consolidation or pulmonary edema. Degenerative changes of the shoulders and spine. Unc hanged widening of the right AC joint. IMPRESSION: Cardiomegaly without acute process. ACT 112: Negative or not required by law. The above report was generated using voice recognition software. It may contain grammatical, syntax o r spelling errors. Electronically signed by: Armando Patel M.D. 10/02/2023 2:02 PM
[2023-10-02 14:24] LABS: Alanine Aminotransferase 54 U/L (7-52); Albumin Globulin Ratio 1.7 (0.9-2); Albumin Level 4.2 gm/dl (3.4-5.0); Alkaline Phosphatase 49 U/L (34-104); BUN Creatinine Ratio 16.4 (10-20); Bilirubin,Total 0.6 mg/dl (0.2-1.0); Blood Urea Nitrogen 12 mg/dl (6-23); Calcium 8.3 mg/dl (8.6-10.3); Carbon Dioxide 25 mmol/L (21-32); Chloride 109 mmol/L (98-107); Creatinine Clr Calc Pharmacy 126.1 ml/min; Est GFR (African American) 116.9 ml/min; Est GFR (Non-African American) 100.8 ml/min; Globulin 2.5 gm/dl (2.5-4.0); Glucose 142 mg/dl (70-99(Fasting)); Lipase 26 U/L (11-82); Total Protein 6.7 gm/dl (6.0-8.3); Troponin I High Sensitivity 7.7 pg/ml (0-20)
[2023-10-02 14:40] LABS: Partial Thromboplastin Ratio 0.8; Partial Thromboplastin Time 23.4 Seconds (21.0-31.0)
[2023-10-02 15:48] LABS: Potassium 3.9 mmol/L (3.5-5.1)
--- NOTE | 2023-10-02 16:13 | Electrocardiogram Report ---
Test Reason : Blood Pressure : / mmHG Vent. Rate : 082 BPM Atrial Rate : 082 BPM P-R Int : 154 ms QRS Dur : 098 ms QT Int : 390 ms P-R-T Axes : 042 -30 -02 degrees QTc Int : 455 ms Normal sinus rhythm Left axis deviation Abnormal ECG When compared with ECG of 10-JUL-2020 10:52, No significant change was found Confirmed by Godwin Watson ([id number]) on 10/02/2023 4:12:54 PM Referred By: Confirmed By:Godwin Watson
[2023-10-02] MEDS ORDERED: ALUMINUM/MAGNESIUM SUSP 30 ML UDC PO PRN (16:36)
[2023-10-02] MEDS ORDERED: ONDANSETRON INJ 2 MG/ML 2 ML VIAL IV PRN (16:36)
[2023-10-02] MEDS ORDERED: MAGNESIUM HYDROXIDE SUSP 30 ML UDC PO PRN (16:36)
[2023-10-02] MEDS ORDERED: POLYETHYLENE (MIRALAX) 17 GM PACK PO PRN (16:36)
--- NOTE | 2023-10-02 16:49 | History & Physical Report ---
Date of Service October 02, 2023 Assessment & Plan (1) Chest pain: (2) Syncope: (3) History of non-ST elevation myocardial infarction (NSTEMI): (4) HLD (hyperlipidemia): Plan Mr. Vaca is a 62 year old male that presents to the ED via EMS after experiencing an acute onset of chest pain. He was sitting in his home office right before lunchtime and had just finished an email. He reports an "electric fence" type abrupt and sharp sensation across his anterior chest that lasted a few seconds. At that time he felt slight dizziness and took 2 nitro sublingual. He then proceeded to go downstairs and sat on a bench and started to sweat profusely. He leaned forward and the next thing he remembers is that he woke up on the floor with an unbelievable urge to have a bowel movement. It was 1226 when he called his and he believes that it was about 10 to 15 minutes from the start of his symptoms until he woke up. He did hit the left parietal portion of his head. Patient is quite active with bicycling and riding elliptical with daily walks. He exercised this morning without any complications. Denies any stroke or seizure history. Patient states that his did not indicate any sort of difficulty with word finding or slurred speech. Patient reports that he has had a syncopal episode 2 times before in his life; once in 2018 while he was sitting on his sofa and the other 2020 when he was standing [place] [employer]. Initial troponin 7.7, no leukocytosis, no electrolyte abnormalities and hemodynamically stable. Patient euvolemic on exam and UA negative. Patient is a high risk cardiac patient due to his known CAD and history of AMI. He had a cath 2017 status post PCI with EZ x2 RCA under the care of Dr. Alfaro. Pt denies tobacco or recreational drug use with social alcohol use every other week with a glass of wine. Patient denies DOMINIQUE, dizziness, SOB, abdominal pain or tenderness, recent falls or trauma. Denies difficulty with word finding or slurred speech. No history of seizures of CVA. Ultimately, suspect this individual self induced syncope with Nitro as he indicates he did not take the Nitro for chest pain, rather to 'thin his blood in case he was having a heart attack'. We discussed appropriate Nitro use. For now, will obtain head CT s/p unwitnessed fall, obtain orthostatic BPs, trend troponin, obtain Mg+, obtain repeat ECHO and await further Bodywork Therapist input. Will keep NPO after MN pending Cards eval. Chest pain: acute uncontrolled Ortho BPs Initial Troponin 7.7; trend x1 and Q6 x2. Check serum Mg+ Obtain repeat ECHO NPO after MN pending Cards input Check fasting lipid panel in AM Cardiology consultation Syncope with unwitnessed fall: acute uncontrolled Likely secondary to Nitroglycerin use Obtain Ortho BPs head CT without contrast to rule out SDH/ICH consider Neuro if no improvement or cardiac origin ruled out History of NSTEMI: chronic stable 06/2017 s/p PCI with EZ x2 RCA under the care of Dr. Alfaro Treadmill stress test 01/2020; normal lv wall motion; EF 55%; ultimately negative stress test Has not taken any Baby ASA or antiplt medication in 5 years Dyslipidemia: Chronic stable Takes Atorvastatin; continue Check fasting lipid panel in AM Disposition: PCP: Dr. Bustamante Code Stsatus: Full Code VTE Prophylaxis: TEds/SCDs for now I spent a total of 87 minutes coordinating, documenting, and providing care for this patient excluding time spent in the performance of separately billed services. All of the aforementioned completed while collaborating with the assigned attending physician for a full treatment plan. Please see their addendum for further details. History of Present Illness Chief Complaint: chest pain Primary Care Provider: Timur Bustamante DO Mr. Vaca is a 62 year old male that presents to the ED via EMS after experiencing an acute onset of chest pain. He was sitting in his home office right before lunchtime and had just finished an email. He reports a electric fence type abrupt and sharp sensation across his anterior chest that lasted a few seconds. At that time he felt slight dizziness and took 2 nitro sublingual. He then proceeded to go downstairs and sat on a bench and started to sweat profusely. He leaned forward and the next thing he remembers is that he woke up on the floor with an unbelievable urge to have a bowel movement. It was 1226 when he called his and he believes that it was about 10 to 15 minutes from the start of his symptoms until he woke up. He did hit the left parietal portion of his head. Patient is quite active with bicycling and riding elliptical with daily walks. He exercised this morning without any complications. Denies any stroke or seizure history. Patient states that his did not indicate any sort of difficulty with word finding or slurred speech. Patient reports that he has had a syncopal episode 2 times before in his life; once in 2018 while he was sitting on his sofa and the other 2020 when he was standing at [employer]. Initial troponin 7.7, no leukocytosis, no electrolyte abnormalities and hemod ynamically stable. Patient euvolemic on exam and UA negative. Patient is a high risk cardiac patient due to his known CAD and history of AMI. He had a cath 2017 status post PCI with EZ x2 RCA under the care of Dr. Alfaro. Pt denies tobacco or recreational drug use with social alcohol use every other week with a glass of wine. Patient denies DOMINIQUE, dizziness, SOB, abdominal pain or tenderness, recent falls or trauma. Ultimately, suspect this individual self induced syncope with Nitro as he indicates he did not take the Nitro for chest pain, rather to 'thin his blood in case he was having a heart attack'. We discussed appropriate Nitro use. For now, will obtain head CT s/p unwitnessed fall, obtain orthostatic BPs, trend troponin, obtain Mg+, obtain repeat ECHO and await further Bodywork Therapist input. Will keep NPO after MN pending Cards eval. patient will be admitted for further evaluation and management. Please see A/P for further details. Allergies Allergy/AdvReac Type Severity Reaction Status Date / Time No Known Allergies Allergy Verified 10/02/23 15:33 Home Medications Medication Instructions Recorded Confirmed Type ascorbic acid (vitamin C) 1,000 mg 1,600 mg PO DAILY 01/13/19 10/02/23 History tablet (Vitamin C) cholecalciferol (vitamin D3) 50 3,000 unit PO QAM 01/13/19 10/02/23 History mcg (2,000 unit) tablet (Vitamin D3) krill 1,000 mg-omega-3 170 mg-dha 1 cap PO QAM 01/13/19 10/02/23 History 50 mg-epa 80 [id number] capsule (krill oil) magnesium 42 mg(magnesium L-threo 1 dose PO AMPM 01/13/19 10/02/23 History 500 mg)-niacinamide 250 mg tablet,ER nitroglycerin 0.4 mg sublingual 0.5 mg sublingual UD PRN Chest Pain 01/13/19 10/02/23 History tablet (Nitrostat) atorvastatin 40 mg tablet 40 mg PO QAM 07/10/20 10/02/23 History fluticasone propionate 50 1 spray intranasal DAILY PRN Nasal 12/03/22 10/02/23 History mcg/actuation nasal Congestion spray,suspension Curcumin, Turmeric Root 1 tab PO DAILY 10/02/23 10/02/23 History Molecular Hydrogen 1 tab PO DAILY 10/02/23 10/02/23 History Super Beets 3 tab PO DAILY 10/02/23 10/02/23 History Ubiquinol Cap 100 mg PO DAILY 10/02/23 10/02/23 History Vitamin K2 Mk7 100 mg PO DAILY 10/02/23 10/02/23 History quercetin 500 mg capsule 0 mg PO DAILY 10/02/23 10/02/23 History soybean, fermented 50 mg capsule 0 mg PO DAILY 10/02/23 10/02/23 History (Nattokinase) zinc 15 mg tablet 15 mg PO DAILY 10/02/23 10/02/23 History Past Med/Surg History Medical History Family history of premature CAD History of pericarditis Pre-diabetes Vitamin D deficiency History of non-ST elevation myocardial infarction (NSTEMI) 06/2017 s/p PCI with EZ x [address] Alfaro CAD (coronary artery disease) HLD (hyperlipidemia) History of coronary artery disease Pericarditis Heart attack Surgical History History of percutaneous coronary intervention Status post AC joint reconstruction History of arthroscopic knee surgery History of hernia repair Family History Other Family history of premature CAD Social History Smoking Status: Never smoker Hx Alcohol Use: Yes Alcohol type: beer and wine Hx Substance Use: No Preferred Language: Urdu Communication Ability: Effective Director Of Digital Platforms Required: No Beliefs That Will Affect Care: None marital status: Current Living Situation: Spouse Feels Safe at Home: Yes Assistive Devices: Glasses Review of Systems Review of Systems: Neuro: (-) Falls, trauma, slurred speech HEENT: (-) DOMINIQUE, dizziness, dysphagia, visual or auditory changes CV: (-) CP, palpitations, swelling Resp: (-) SOB GI: (-) appetite changes, N/V/D, bowel changes : (-) urinary changes Skin: (-) rashes Psych: (-) anxiety, depression Physical Exam Physical Exam: Neuro: AAOx4, PERRLA, no aphagia, memory changes, CNII-XII grossly intact HEENT: head normocephalic, moist mucus membranes CV: S1/S2, (-) M/G/R, (-) edema, cap refill < 3 seconds Resp: Lungs CTA in all joyce. On RA GI: Abdomen S/NT/ND, Ax4 bowel sounds, (-) CVA tenderness Musculoskeletal: 5/5 B/L UE strength, 5/5 B/L LE strength. No gait disturbance Skin: (-) rashes , (-) erythema. Psych: euthymic mood Results & Data Results & Data Vital Signs (Past 12 Hours) Vital Signs Temp Pulse Pulse Resp BP BP Pulse Ox 10/02/23 15:19 70 18 137/81 93 10/02/23 14:12 121/71 10/02/23 14:12 87 14 93 10/02/23 14:10 82 17 94 10/02/23 14:00 70 17 121/71 93 10/02/23 13:53 76 10/02/23 13:50 79 18 94 10/02/23 13:40 78 16 95 10/02/23 13:35 84 14 95 10/02/23 13:34 124/79 10/02/23 13:04 36.8 C 98 H 18 124/79 95 O2 Del Method 10/02/23 15:19 Room Air 10/02/23 14:12 10/02/23 14:12 10/02/23 14:10 10/02/23 14:00 10/02/23 13:53 10/02/23 13:50 10/02/23 13:40 10/02/23 13:35 10/02/23 13:34 10/02/23 13:04 Room Air Laboratory Results Short CBC 10/02/23 Range/Units 13:40 WBC 9.60 (4.8-10.8) K/ul Hgb 15.4 (14.0-18.0) g/dl Hct 45.1 (42.0-52.0) % Plt Count 254 (130-400) K/uL BMP 10/02/23 10/02/23 13:40 15:13 Sodium TNP 139 Potassium TNP 3.9 Chloride 109 H Carbon Dioxide 25 BUN 12 Creatinine 0.73 Glucose 142 H Calcium 8.3 L Liver Function 10/02/23 10/02/23 Range/Units 13:40 15:13 Total Bilirubin 0.6 (0.2-1.0) mg/dl AST TNP 30 ALT 54 H (7-52) U/L Alkaline Phosphatase 49 (34-104) U/L Albumin 4.2 (3.4-5.0) gm/dl Diagnostic Findings Chest X-Ray 10/02/23 13:25 XR chest 1V portable HISTORY: 62 years-old Male Chest pain, nonspecific COMPARISON: 01/17/2020 TECHNIQUE: AP view of the chest FINDINGS: Cardiac silhouette is enlarged. Mild right hemidiaphragmatic elevation. No pneumothorax, pleural effusion, airspace consolidation or pulmonary edema. Degenerative changes of the shoulders and spine. Unchanged widening of the right AC joint. IMPRESSION: Cardiomegaly without acute process. ACT 112: Negative or not required by law. The above report was generated using voice recognition software. It may contain grammatical, syntax or spelling errors. Electronically signed by: Armando Patel M.D. 10/02/2023 2:02 PM Code Status & VTE Plan Code Status Full Code in the event of cardiac or respiratory arrest VTE Prophylaxis Plan VTE Prophylaxis will be ordered: Yes Supervising Physician Co-Signing Physician Notes Pt seen and examined by me, care coordinated w/ E. JOSEFA Browne, pls refer to her note above for further detail. Pt is a 62 yo M who presents w/ chest pain. He was sitting in his home office when felt "electric fence" type sharp sensation at his left chest. He took 2 nitro sublingual. He then proceeded to go downstairs and sat on a bench and started to sweat profusely. He leaned forward and the next thing he remembers is that he woke up on the floor. He did hit the left parietal portion of his head. Patient is quite active with bicycling and riding elliptical with daily walks. He exercised this morning without any complications. Denies any stroke or seizure history. Patient states that his did not indicate any sort of difficulty with word finding or slurred speech. Patient reports that he has had a syncopal episode 2 times before in his life; once in 2018 while he was sitting on his sofa and the other 2020 when he was standing at [employer]. Initial troponin 7.7, no leukocytosis, no electrolyte abnormalities and hemodynamically stable. Patient euvolemic on exam and UA negative. Patient is a high risk cardiac patient due to his known CAD and history of AMI. He had a cath 2017 status post PCI with EZ x2 RCA under the care of Dr. Alfaro. Patient denies DOMINIQUE, dizziness, SOB, abdominal pain or tenderness, recent falls or trauma. Currently sitting up in bed in NAD. No chest pain or shortness of breath, comfortable. Awake, alert oriented answering appropriately. Heart sounds regular, lungs sounds clear to auscultation. Abdomen soft, nontender, nondistended. No LE edema. Skin is warm and dry. Ultimately, suspect this individual self induced syncope with Nitro as he indicates he did not take the Nitro for chest pain, rather to 'thin his blood in case he was having a heart attack'. Will obtain head CT s/p unwitnessed fall, obtain orthostatic BPs, trend troponin, ECHO and will further discuss w/cardiology. (1) Chest pain Chest pain type: unspecified Qualified Code(s): R07.9 - Chest pain, unspecified (2) Syncope Syncope type: unspecified Qualified Code(s): R55 - Syncope and collapse (4) HLD (hyperlipidemia) Hyperlipidemia type: unspecified Qualified Code(s): E78.5 - Hyperlipidemia, unspecified
[2023-10-02 17:37] LABS: Magnesium 1.8 mg/dl (1.7-2.4)
[2023-10-02 17:44] LABS: Troponin I High Sensitivity 9.5 pg/ml (0-20)
[2023-10-02] MEDS ORDERED: FLUTICASONE PROPIONATE NA SPR 16 GM BTL PRN (17:50)
[2023-10-02] MEDS: ACETAMINOPHEN 325 MG TAB PO PRN (19:41)
--- NOTE | 2023-10-02 20:09 | CT Scan Report ---
Exam(s): CT HEAD Without Contrast EXAM: CT Head Without Intravenous Contrast CLINICAL HISTORY: Reason for exam: unwitnessed fall. TECHNIQUE: Axial computed tomography images of the head/brain without intravenous contrast. CTDI is 37.32 mGy and DLP is 625.8 mGy-cm. Automated exposure control was utilized for the study. A dose lowering technique was utilized adhering to the principles of ALARA. COMPARISON: No relevant prior studies available. FINDINGS: No acute intracranial hemorrhage. No midline shift or mass effect. The territorial bernabe-white matter differentiation is maintained throughout. Age-related cerebral volume loss. Periventricular and subcortical white matter hypoattenuation, consistent with chronic microangiopathy. The visualized orbits appear grossly unremarkable. The calvarium is intact. Paranasal sinus mucosal thickening. IMPRESSION: No acute intracranial hemorrhage, midline shift, or mass effect. Electronically signed by: Lamonte Vásquez MD 10/02/23 20:08 PM
[2023-10-03] MEDS: ACETAMINOPHEN 325 MG TAB PO PRN (04:58)
[2023-10-03 05:21] LABS: Albumin Globulin Ratio 1.6 (0.9-2); Albumin Level 3.9 gm/dl (3.4-5.0); BUN Creatinine Ratio 13.8 (10-20); Bilirubin,Total 0.7 mg/dl (0.2-1.0); Calcium 9.3 mg/dl (8.6-10.3); Creatinine Clr Calc Pharmacy 107.9 ml/min; Est GFR (African American) 108.7 ml/min; Est GFR (Non-African American) 93.8 ml/min; Globulin 2.5 gm/dl (2.5-4.0); Total Protein 6.4 gm/dl (6.0-8.3)
[2023-10-03 06:29] LABS: Hematocrit (blood only) 32.1 % (42.0-52.0); Hemoglobin 9.9 g/dl (14.0-18.0); Mean Corpuscular Hemoglobin 30.5 pg (25.0-34.0); Mean Corpuscular Hgb Conc 30.8 g/dL (32.0-36.0); Mean Corpuscular Volume 98.8 fL (80.0-100.0); Mean Platelet Volume 10.1 fL (9.4-12.4); Platelet Count 275 K/uL (130-400); RDW Coefficient of Variation 14.3 % (11.5-14.5); RDW Standard Deviation 50.8 fL (36.4-46.3); Red Blood Count 3.25 M/uL (4.70-6.10); White Blood Count 11.05 K/ul (4.8-10.8)
--- NOTE | 2023-10-03 08:43 | XCELERA ---
[id number]
[2023-10-03 08:55] LABS: Troponin I High Sensitivity 10.7 pg/ml (0-20)
[2023-10-03] MEDS ORDERED: CHOLECALCIFEROL 1,000 UNITS 25 MCG TAB PO SCH (09:00)
[2023-10-03] MEDS ORDERED: ASCORBIC ACID 500 MG TAB PO SCH (09:00)
[2023-10-03] MEDS ORDERED: ATORVASTATIN 40 MG TAB PO SCH (09:00)
[2023-10-03 12:18] LABS: Hematocrit (blood only) 38.6 % (42.0-52.0); Hemoglobin 12.7 g/dl (14.0-18.0)
--- NOTE | 2023-10-03 15:07 | Discharge Summary ---
Discharge Summary Date of Service October 03, 2023 Notes For Next Care Provider Medication Changes From Visit Discontinue Nitroglycerin given history of syncope after taking medication Admission HPI Per Admitting Provider Mr. Vaca is a 62 year old male that presents to the ED via EMS after experiencing an acute onset of chest pain. He was sitting in his home office right before lunchtime and had just finished an email. He reports a electric fence type abrupt and sharp sensation across his anterior chest that lasted a few seconds. At that time he felt slight dizziness and took 2 nitro sublingual. He then proceeded to go downstairs and sat on a bench and started to sweat profusely. He leaned forward and the next thing he remembers is that he woke up on the floor with an unbelievable urge to have a bowel movement. It was 1226 when he called his and he believes that it was about 10 to 15 minutes from the start of his symptoms until he woke up. He did hit the left parietal portion of his head. Patient is quite active with bicycling and riding elliptical with daily walks. He exercised this morning without any complications. Denies any stroke or seizure history. Patient states that his did not indicate any sort of difficulty with word finding or slurred speech. Patient reports that he has had a syncopal episode 2 times before in his life; once in 2018 while he was sitting on his sofa and the other 2020 when he was standing at [employer]. Initial troponin 7.7, no leukocytosis, no electrolyte abnormalities and hemodynamically stable. Patient euvolemic on exam and UA negative. Patient is a high risk cardiac patient due to his known CAD and history of AMI. He had a cath 2017 status post PCI with EZ x2 RCA under the care of Dr. Alfaro. Pt denies tobacco or recreational drug use with social alcohol use every other week with a glass of wine. Patient denies DOMINIQUE, dizziness, SOB, abdominal pain or tenderness, recent falls or trauma. Ultimately, suspect this individual self induced syncope with Nitro as he indicates he did not take the Nitro for chest pain, rather to 'thin his blood in case he was having a heart attack'. We discussed appropriate Nitro use. For now, will obtain head CT s/p unwitnessed fall, obtain orthostatic BPs, trend troponin, obtain Mg+, obtain repeat ECHO and await further Commercial Counsel input. Will keep NPO after MN pending Cards eval. patient will be admitted for further evaluation and management. Please see A/P for further details. Principal Dx & Hospital Course #1 = Principal Diagnosis (1) Chest pain: (2) Syncope: (3) History of non-ST elevation myocardial infarction (NSTEMI): (4) HLD (hyperlipidemia): Plan Mr. Vaca is a 62year old gentleman admitted due to concerns of chest pain and syncope. Work up was negative for acute coronary syndrome. Patient reported syncopal events occurred either from standing too long or after taking nitroglycerin. #Non-cardiac chest pain: Negative troponin. Echo negative. Evaluated by Dr. Alfaro Symptom reproducible to palpation, discussed pain management options. Encouraged patient to follow up regarding chronic left shoulder pains, but patient reports general distrust in medicine, however, will consider if necessary #Syncope with unwitnessed fall: Imaging negative for acute intracranial process -Discontinue as needed nitroglycerin -Follow up PCP #History of NSTEMI: chronic stable 06/2017 s/p PCI with EZ x2 RCA under the care of Dr. Alfaro Treadmill stress test 01/2020; normal lv wall motion; EF 55%; ultimately negative stress test Has not taken any Baby ASA or antiplt medication in 5 years #Dyslipidemia: Chronic stable Continue atorvastatin On day of discharge, patient was eager to leave, denied any chest pain, or thostatic symptoms, or acute new concerns. Discharge Exam Constitutional WD/WN, vitals as above Respiratory normal respiratory effort, lungs clear to auscultation Cardiovascular RRR, no murmur, no edema Musculoskeletal no cyanosis or clubbing, extremities motor strength 5/5 Updated Medication List Medication Instructions Recorded Confirmed Type ascorbic acid (vitamin C) 1,000 mg 1,600 mg PO DAILY 01/13/19 10/02/23 History tablet (Vitamin C) cholecalciferol (vitamin D3) 50 3,000 unit PO QAM 01/13/19 10/02/23 History mcg (2,000 unit) tablet (Vitamin D3) krill 1,000 mg-omega-3 170 mg-dha 1 cap PO QAM 01/13/19 10/02/23 History 50 mg-epa 80 [id number] capsule (krill oil) magnesium 42 mg(magnesium L-threo 1 dose PO AMPM 01/13/19 10/02/23 History 500 mg)-niacinamide 250 mg tablet,ER atorvastatin 40 mg tablet 40 mg PO QAM 07/10/20 10/02/23 History fluticasone propionate 50 1 spray intranasal DAILY PRN Nasal 12/03/22 10/02/23 History mcg/actuation nasal Congestion spray,suspension Curcumin, Turmeric Root 1 tab PO DAILY 10/02/23 10/02/23 History Molecular Hydrogen 1 tab PO DAILY 10/02/23 10/02/23 History Super Beets 3 tab PO DAILY 10/02/23 10/02/23 History Ubiquinol Cap 100 mg PO DAILY 10/02/23 10/02/23 History Vitamin K2 Mk7 100 mg PO DAILY 10/02/23 10/02/23 History quercetin 500 mg capsule 0 mg PO DAILY 10/02/23 10/02/23 History soybean, fermented 50 mg capsule 0 mg PO DAILY 10/02/23 10/02/23 History (Nattokinase) zinc 15 mg tablet 15 mg PO DAILY 10/02/23 10/02/23 History Hospital Stay Data Consultations 10/02/23 16:29 ED Decision to Admit Stat 10/03/23 07:00 Consult Cardiology Routine Diagnostic Imagining Performed 10/02/23 17:26 CT head/brain wo con Routine Pending Results Patient Have Any Pending Studies at Discharge: No Discharge Instructions Given to Patient (Per Discharging Provider) You were admitted due to concerns for chest pain, as well as syncopal (fainting) episode. Work-up and monitoring did not reveal a cardiac reason for your symptoms. No arrhythmias were detected on the heart monitor and ECG did not show signs of ischemia, or tissue damage due to blockages. Labs were negative for any heart damage as well. The source of your pain/sensation is not clear; however, the syncopal episode appears to have been related to dramatic drop in blood pressure from the nitroglycerin use. Dr. Alfaro recommended discontinuing this medication given this episode. Please consider following up with your PCP regarding the non-cardiac chest pain/musculoskeletal like symptoms you experience. Total Time Total Time Spent Total Time Spent (In Minutes): 45
--- NOTE | 2023-10-03 16:24 | Cardiology Consultation ---
Date of Consultation October 03, 2023 Assessment & Plan (1) Syncope: Prior neurocardiogenic syncope 2. 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 Dyslipidemia--Last LDL 10/2022 79 on atorvastatin 4. Anemia Patient's presentation not consistent with ACS. LV function unchanged. He remains very active, exercising regularly without change in exercise tolerance or new exertional symptoms. Do not feel he needs additional ischemic testing at this point. Patient's description of syncopal episode seems most consistent with recurrent vasovagal event precipitated by pain and nitroglycerin. Very low suspicion related to arrhythmia. Going forward: Patient okay for discharge today from a cardiac standpoint Continue current statin Stop as needed sublingual nitroglycerin Outpatient follow-up for possible anemia History of Present Illness Attending Physician: Diane Coleman MD History of Present Illness Mr. Vaca is a very pleasant 62-year-old man with a history of coronary artery disease post prior NSTEMI and multivessel PCI in 2016, vasovagal syncope, dyslipidemia admitted after brief episode of chest discomfort and recurrent syncopal event. Has been in usual state of health, exercising regularly including the morning of his event. States that morning was on elliptical for 60 minutes without any symptoms. Later in the day was at rest and developed a brief moment of chest pain that felt like an electric shock, lasted at most seconds. After event he was concerned this could represent repeat [place] and took multiple nitroglycerin to "thin his blood.". After nitroglycerin noted blurry vision/lightheadedness reminiscent of symptoms he had prior to prior to passing out spells. He went downstairs to sit on a bench and next thing he remembers was waking up on the ground striking his head. States that after waking still felt unwell, flushed nauseated and had episode of diarrhea. During whole course never had any additional chest pain. No shortness of breath. No palpitations. Since admission has had no recurrent chest symptoms or presyncope. On arrival GSV showed sinus rhythm without ST changes. HS TropI negative x3. Head CT negative, chest x-ray unremarkable. Telemetry overnight with no arrhythmia. Echocardiogram today showed preserved LV function with no new regional wall motion abnormalities. Work unremarkable except for low hemoglobin this morning 9.9, on repeat 12.7 Past cardiac history: Patient initially presented to [facility] in June of 2017 with 3 days new exertional chest tightness. Initial EKG nondiagnostic, troponin minimally elevated but after vasovagal bradycardic/syncopal episode a heart alert was activated. Emergent cardiac catheterization revealed a acute on chronic mid LAD occlusion with [id number] collaterals and an 80 percent early mid RCA stenosis. Patient treated with PCI to LAD with single drug-eluting stent. Subsequently underwent staged PCI on hospital day 2 with a another drug-eluting stent placed to his RCA. Postprocedure echocardiogram showed mild LV dysfunction with hypokinetic mid to distal anterior wall and akinetic apex. Troponin peaked at 13.9. 12/2019 admitted with recurrent syncope again consistent with bradycardia/vasovagal episode. Exercise SPECT 01/2020 negative for ischemia at 95% MPHR, EF 55%, 9: 34, 11.9 METS. Seen by EP, Dr. Hernandez 06/2020 after an additional episode of near syncope. Conservative measures recommended. Allergies Allergy/AdvReac Type Severity Reaction Status Date / Time No Known Allergies Allergy Verified 10/02/23 15:33 Home Medications Medication Instructions Recorded Confirmed Type ascorbic acid (vitamin C) 1,000 mg 1,600 mg PO DAILY 01/13/19 10/02/23 History tablet (Vitamin C) cholecalciferol (vitamin D3) 50 3,000 unit PO QAM 01/13/19 10/02/23 History mcg (2,000 unit) tablet (Vitamin D3) krill 1,000 mg-omega-3 170 mg-dha 1 cap PO QAM 01/13/19 10/02/23 History 50 mg-epa 80 [id number] capsule (krill oil) magnesium 42 mg(magnesium L-threo 1 dose PO AMPM 01/13/19 10/02/23 History 500 mg)-niacinamide 250 mg tablet,ER atorvastatin 40 mg tablet 40 mg PO QAM 07/10/20 10/02/23 History fluticasone propionate 50 1 spray intranasal DAILY PRN Nasal 12/03/22 10/02/23 History mcg/actuation nasal Congestion spray,suspension Curcumin, Turmeric Root 1 tab PO DAILY 10/02/23 10/02/23 History Molecular Hydrogen 1 tab PO DAILY 10/02/23 10/02/23 History Super Beets 3 tab PO DAILY 10/02/23 10/02/23 History Ubiquinol Cap 100 mg PO DAILY 10/02/23 10/02/23 History Vitamin K2 Mk7 100 mg PO DAILY 10/02/23 10/02/23 History quercetin 500 mg capsule 0 mg PO DAILY 10/02/23 10/02/23 History soybean, fermented 50 mg capsule 0 mg PO DAILY 10/02/23 10/02/23 History (Nattokinase) zinc 15 mg tablet 15 mg PO DAILY 10/02/23 10/02/23 History Patient History Medical History Family history of premature CAD History of pericarditis Pre-diabetes Vitamin D deficiency History of non-ST elevation myocardial infarction (NSTEMI) 06/2017 s/p PCI with EZ x [address] Alfaro CAD (coronary artery disease) HLD (hyperlipidemia) History of coronary artery disease Pericarditis Heart attack Surgical History History of percutaneous coronary intervention Status post AC joint reconstruction History of arthroscopic knee surgery History of hernia repair Family History Other Family history of premature CAD Social History Smoking Status: Never smoker Second Hand Exposure: No; Do You Dip or Chew Tobacco: No; Hx Alcohol Use: Yes Alcohol type: beer and wine Hx Substance Use: No Preferred Language: Swedish Communication Ability: Effective Dough Braker Required: No Beliefs That Will Affect Care: None marital status: Current Living Situation: Spouse Feels Safe at Home: Yes Assistive Devices: None Review of Systems Review of Systems: All systems reviewed & are unremarkable except as noted in HPI & below Physical Exam Physical Exam: General: Comfortable HEENT: Sclerae anicteric Lungs: Clear to auscultation bilaterally, no crackles or wheezes Cardiac: Regular rate and rhythm, no murmurs. Vascular: 2+ radial, DP pulses. No bruits Abdomen: Soft, nontender Extremities: Well perfused, no peripheral edema Neuro: Nonfocal Psych: Alert orient x3, normal affect and mood Results & Data Vital Signs (Past 12 Hours) Vital Signs Temp Pulse Pulse Resp BP Pulse Ox O2 Del Method 10/03/23 13:53 98.2 F 61 16 137/87 93 10/03/23 12:25 98.2 F 61 16 137/87 93 Room Air 10/03/23 09:00 62 10/03/23 08:00 62 10/03/23 07:54 98.2 F 62 16 130/83 92 Room Air PG Care Time/CCT Total # of Minutes Spent Total Time Spent with Patient: Total time spent is greater than 50% in coordination of care (as documented) at patient's floor/unit and/or counseling patient: Coding Level of Care Code 66679 IN/OBS CONSULT LVL 4,60M Diagnoses Syncope R55 Syncope type: unspecified (1) Syncope Syncope type: unspecified Qualified Code(s): R55 - Syncope and collapse
== END 2023-10-03 15:24 | disposition home or self-care (01) ==
LOC: ED 13:19 → SUATTDRO 16:36 → INTOOBSV 16:36 → 4W 16:36